=== PATIENT | female | born 1965 | race American Indian/Alaskan Native ===

== ENCOUNTER 2017-05-11 22:48 | Emergency (ER) | payer SELFPAY ==
[2017-05-11 23:43] LABS: Eosinophils % (Auto) 2.9 % (0.0-4.3); Hematocrit 42.1 % (30.3-42.9); Hemoglobin 13.9 gm/dl (10.1-14.3); Mean Corpuscular HGB Conc 33 % (30-34); Mean Corpuscular Hemoglobin 28 pg (28-32); Mean Corpuscular Volume 84 fl (79-97); Platelet Count 258 K/mm3 (140-440); Red Blood Count 5.01 M/mm3 (3.65-5.03); Red Cell Distribution Width 13.3 % (13.2-15.2); White Blood Count 8.1 K/mm3 (4.5-11.0)
[2017-05-11 23:56] LABS: Albumin 4.7 g/dL (3.9-5); Albumin/Globulin Ratio 1.1 %; BUN/Creatinine Ratio 15.88; Bilirubin,Total 0.4 mg/dL (0.1-1.2); Calcium 9.9 mg/dL (8.4-10.2); Chloride 96.3 mmol/L (98-107); Potassium 3.7 mmol/L (3.6-5.0); Total Protein 8.9 g/dL (6.3-8.2)
[2017-05-12 00:49] LABS: Bilirubin,Urine NEG (Negative); Blood,Urine NEG (Negative); Ketones,Urine NEG (Negative); Leukocyte Esterase,Urine SM (Negative); Mucus,Urine FEW /HPF; Nitrite,Urine NEG (Negative); Urobilinogen,Urine < 2.0 mg/dL (<2.0)
[2017-05-12 00:50] LABS: Protein,Urine >500 mg/dL (Negative)
[2017-05-12] MEDS ORDERED: ZOFRAN IV ONE (11:36)
[2017-05-12] MEDS ORDERED: MORPHINE IV ONE (11:36)
[2017-05-12] MEDS ORDERED: NACL 0.9% 1000 ML 1,000 ML IV ONE (11:36)
--- NOTE | 2017-05-12 11:39 | Emergency Department Report ---
ED Abdominal Pain HPI - General Chief Complaint: Abdominal Pain Stated Complaint: BLURRED VISION Time Seen by Provider: 05/12/17 11:27 Source: patient Mode of arrival: Ambulatory Limitations: No Limitations - History of Present Illness Initial Comments: 51-year-old female with complaint of abdominal pain since Monday. She is a history of cholecystectomy approximately 5 years ago. She complains of abdominal pain that is sharp in nature and radiates around to the right side. She's had nausea but no vomiting. No diarrhea. MD Complaint: abdominal pain -: Gradual Radiation: RUQ Migration to: no migration Severity: moderate Severity scale (0 -10): 9 Quality: sharp Consistency: constant Improves With: nothing Worsens With: nothing Associated Symptoms: nausea. denies: vomiting, diarrhea, constipation, dysuria - Related Data Previous Rx's Medication Instructions Recorded Last Taken Type Ondansetron [Zofran TAB] 4 mg PO Q8HR PRN #15 tablet 05/12/17 Unknown Rx oxyCODONE /ACETAMINOPHEN [Percocet 1 tab PO Q6HR PRN #15 tablet 05/12/17 Unknown Rx 5/325] Allergies Allergy/AdvReac Type Severity Reaction Status Date / Time latex Allergy Hives Verified 05/11/17 23:08 Sulfa (Sulfonamide Allergy Swelling Verified 05/11/17 23:08 Antibiotics) ED Review of Systems ROS: Stated complaint: BLURRED VISION Other details as noted in HPI Comment: All other systems reviewed and negative Constitutional: denies: chills, fever Eyes: denies: eye pain, eye discharge, vision change ENT: denies: ear pain, throat pain Respiratory: denies: cough, shortness of breath, wheezing Cardiovascular: denies: chest pain, palpitations Endocrine: no symptoms reported Gastrointestinal: abdominal pain, nausea. denies: vomiting, diarrhea Genitourinary: denies: urgency, dysuria, discharge Musculoskeletal: denies: back pain, joint swelling, arthralgia Skin: denies: rash, lesions Neurological: denies: headache, weakness, paresthesias Psychiatric: denies: anxiety, depression Hematological/Lymphatic: denies: easy bleeding, easy bruising ED Past Medical Hx - Past Medical History Previous Medical History?: Yes Hx Hypertension: Yes Hx Diabetes: Yes Additional medical history: PANCREATITIS - Surgical History Past Surgical History?: Yes Hx Cholecystectomy: Yes Additional Surgical History: BREAST LUMP REMOVALS / HYSTERECTOMY - Social History Smoking Status: Current Every Day Smoker Substance Use Type: None - Medications Home Medications: Home Medications Medication Instructions Recorded Confirmed Last Taken Type Ondansetron [Zofran TAB] 4 mg PO Q8HR PRN #15 tablet 05/12/17 Unknown Rx oxyCODONE /ACETAMINOPHEN [Percocet 1 tab PO Q6HR PRN #15 tablet 05/12/17 Unknown Rx 5/325] ED Physical Exam - General Limitations: No Limitations General appearance: alert, in no apparent distress - Head Head exam: Present: atraumatic, normocephalic - Eye Eye exam: Present: normal appearance - ENT ENT exam: Present: mucous membranes moist - Neck Neck exam: Present: normal inspection - Respiratory Respiratory exam: Present: normal lung sounds bilaterally. Absent: respiratory distress - Cardiovascular Cardiovascular Exam: Present: regular rate, normal rhythm. Absent: systolic murmur, diastolic murmur, rubs, gallop - GI/Abdominal GI/Abdominal exam: Present: soft, tenderness (epigastric), guarding, normal bowel sounds. Absent: rebound - Extremities Exam Extremities exam: Present: normal inspection - Back Exam Back exam: Present: normal inspection - Neurological Exam Neurological exam: Present: alert, oriented X3 - Psychiatric Psychiatric exam: Present: normal affect, normal mood - Skin Skin exam: Present: warm, dry, intact, normal color. Absent: rash ED Course Vital Signs 05/11/17 05/12/17 05/12/17 23:08 06:31 11:30 Temperature 98.2 F Pulse Rate 102 H 85 87 Respiratory 18 14 16 Rate Blood Pressure 162/112 161/117 Blood Pressure 150/114 [Left] O2 Sat by Pulse 98 100 98 Oximetry 05/12/17 05/12/17 05/12/17 11:53 12:23 12:56 Temperature Pulse Rate Respiratory 16 16 16 Rate Blood Pressure Blood Pressure [Left] O2 Sat by Pulse 98 Oximetry ED Medical Decision Making - Lab Data Result diagrams: 05/11/17 23:16 05/11/17 23:16 Laboratory Results - last 24 hr 05/11/17 05/11/17 05/12/17 23:16 23:16 00:27 WBC 8.1 RBC 5.01 Hgb 13.9 Hct 42.1 MCV 84 MCH 28 MCHC 33 RDW 13.3 Plt Count 258 Lymph % (Auto) 39.1 H Warrick % (Auto) 6.8 Eos % (Auto) 2.9 Baso % (Auto) 1.0 Lymph # 3.2 Warrick # 0.6 Eos # 0.2 Baso # 0.1 Seg Neutrophils % 50.2 Seg Neutrophils # 4.1 Sodium 135 L Potassium 3.7 Chloride 96.3 L Carbon Dioxide 20 L Anion Gap 22 BUN 27 H Creatinine 1.7 H Estimated GFR 38 BUN/Creatinine Ratio 15.88 Glucose 139 H Calcium 9.9 Total Bilirubin 0.40 AST 24 ALT 23 Alkaline Phosphatase 132 H Total Protein 8.9 H Albumin 4.7 Albumin/Globulin Ratio 1.1 Lipase 297 H Urine Color Yellow Urine Turbidity Cloudy Urine pH 5.0 Ur Specific [place] 1.022 Urine Protein >500 Urine Glucose (UA) Neg Urine Ketones Neg Urine Blood Neg Urine Nitrite Neg Urine Bilirubin Neg Urine Urobilinogen < 2.0 Ur Leukocyte Esterase Sm Urine WBC (Auto) 28.0 H Urine RBC (Auto) 9.0 U Epithel Cells (Auto) 31.0 H Urine WBC Clumps 2+ Urine Mucus Few Urine Yeast (Budding) 2+ - Medical Decision Making 51-year-old female here with complaint of abdominal pain since Monday. She has not been able to eat anything due to nausea and pain since that time. Denies fevers chills. Labs showed no elevation in WBC however her lipase is slightly elevated at 297. She also has some acute renal insufficiency creatinine 1.7. This is likely due to dehydration. Plan to treat with IV fluids and morphine and Zofran and will reassess. Patient's pain is improved significantly after IV fluids and morphine. She passed a by mouth challenge although she says her pain has returned slightly. We discussed the possibility of admission and the patient would prefer to go home. She understands that she will need to continue clear broth and water for the next several days until her pain resolves. Patient is comfortable with this plan. Portions of this chart were dictated with dictation software. There may be dictation errors contained within this note. Critical care attestation.: If time is entered above; I have spent that time in minutes in the direct care of this critically ill patient, excluding procedure time. ED Disposition Clinical Impression: Pancreatitis, Dehydration Disposition: - TO HOME OR SELFCARE Is pt being admited?: No Condition: Stable Instructions: Abdominal Pain (ED) Prescriptions: Ondansetron [Zofran TAB] 4 mg PO Q8HR PRN #15 tablet PRN Reason: Nausea And Vomiting oxyCODONE /ACETAMINOPHEN [Percocet 5/325] 1 tab PO Q6HR PRN #15 tablet PRN Reason: Pain Referrals: PRIMARY CARE,MD [Primary Care Provider] - 3-5 Days
[2017-05-12 15:37] VITALS: BP 169/94
== END 2017-05-12 15:25 | disposition home or self-care (01) ==
LOC: ED 22:48
DX: K85.90 Acute pancreatitis without necrosis or infection, unspecified (principal); E86.0 Dehydration; I10 Essential (primary) hypertension; E11.9 Type 2 diabetes mellitus without complications; Z87.891 Personal history of nicotine dependence; Z88.2 Allergy status to sulfonamides; Z91.040 Latex allergy status
CPT/HCPCS: 36415; 80053; 81001; 83690; 85025; 96361; 96374; 96375; 99283; J2270; J2405; J7030

== ENCOUNTER 2017-10-12 13:48 | Inpatient (IN) | payer MEDICARE ==
[2017-10-12 15:17] LABS: Basophils % (Auto) 0.2 % (0.0-1.8); Eosinophils % (Auto) 0.7 % (0.0-4.3); Hematocrit 50.7 % (30.3-42.9); Hemoglobin 16.7 gm/dl (10.1-14.3); Mean Corpuscular HGB Conc 33 % (30-34); Mean Corpuscular Hemoglobin 27 pg (28-32); Mean Corpuscular Volume 82 fl (79-97); Red Blood Count 6.16 M/mm3 (3.65-5.03); Red Cell Distribution Width 13.6 % (13.2-15.2); White Blood Count 10.8 K/mm3 (4.5-11.0)
[2017-10-12 15:35] LABS: Platelet Count 277 K/mm3 (140-440)
[2017-10-12 15:37] LABS: Albumin 4.5 g/dL (3.9-5); Albumin/Globulin Ratio 1.5 %; Bilirubin,Total 0.8 mg/dL (0.1-1.2); Calcium 9.7 mg/dL (8.4-10.2); Chloride 97.9 mmol/L (98-107); Potassium 4.6 mmol/L (3.6-5.0); Total Protein 7.6 g/dL (6.3-8.2)
[2017-10-12] MEDS ORDERED: ZOFRAN IV ONE (16:38)
[2017-10-12] MEDS ORDERED: NACL 0.9% 1000 ML 1,000 ML IV ONE (16:38)
[2017-10-12] MEDS ORDERED: SUBLIMAZE IV ONE ×2 (16:38→19:37)
--- NOTE | 2017-10-12 18:27 | Emergency Department Report ---
HPI - General Chief Complaint: Abdominal Pain Time Seen by Provider: 10/12/17 16:34 - HPI HPI: Room 5 The patient is a 52-year-old female presented with a chief complaint of abdominal pain. Patient states the past 3 days she has had pain in the midepigastric region radiating to her back. Patient states the pain feels like previous bouts of pancreatitis. Patient does admit to nausea vomiting and diarrhea. Patient denies any history of fever. Patient denies any other pain outside of her abdominal/back pain. The patient gives her pain a score of 10/10 Location: [See above] Duration: Intermittent 3 days Quality: Similar to pancreatitis Severity: 10/10 Modifying factors: [see above] Context: [see above] Mode of transportation: [not driving] ED Past Medical Hx - Past Medical History Previous Medical History?: Yes Hx Hypertension: Yes Hx Diabetes: Yes Additional medical history: PANCREATITIS - Surgical History Past Surgical History?: Yes Hx Cholecystectomy: Yes Additional Surgical History: BREAST LUMP REMOVALS / HYSTERECTOMY - Family History Family history: no significant - Social History Smoking Status: Current Every Day Smoker (1/3 pack per day) Substance Use Type: Alcohol (occasional) - Medications Home Medications: Home Medications Medication Instructions Recorded Confirmed Last Taken Type AtorvaSTATin [Lipitor] 20 mg PO QHS 10/12/17 10/12/17 10/12/17 History Metoprolol [Lopressor] 100 mg PO BID 10/12/17 10/12/17 10/12/17 History amLODIPine [Norvasc] 10 mg PO DAILY 10/12/17 10/12/17 10/12/17 History glipiZIDE [Glucotrol] 5 mg PO BID 10/12/17 10/12/17 10/12/17 History metFORMIN [Glucophage] 500 mg PO BID 10/12/17 10/12/17 10/12/17 History ED Review of Systems ROS: Stated complaint: ABDOMINAL PAIN Other details as noted in HPI Constitutional: denies: fever Eyes: denies: eye pain ENT: denies: ear pain Cardiovascular: denies: chest pain Gastrointestinal: abdominal pain, nausea, vomiting, diarrhea Genitourinary: denies: dysuria Musculoskeletal: back pain Neurological: denies: headache Physical Exam - Physical Exam Vital Signs: Vital Signs 10/12/17 10/12/17 10/12/17 14:15 15:32 15:46 Temperature 97.9 F Pulse Rate 113 H 98 H Respiratory 18 20 13 Rate Blood Pressure 200/129 Blood Pressure [Left] O2 Sat by Pulse 99 96 Oximetry 10/12/17 1210/12/17 16:00 16:15 16:30 Temperature Pulse Rate 103 H 106 H 103 H Respiratory 21 20 16 Rate Blood Pressure 187/124 187/124 Blood Pressure [Left] O2 Sat by Pulse Oximetry 10/12/17 10/12/17 10/12/17 16:45 17:00 17:13 Temperature Pulse Rate 106 H 105 H 105 H Respiratory 18 20 22 Rate Blood Pressure 200/116 200/116 Blood Pressure 154/116 [Left] O2 Sat by Pulse 97 Oximetry 10/12/17 10/12/17 10/12/17 17:15 17:30 18:05 Temperature Pulse Rate 101 H 102 H 97 H Respiratory 21 18 Rate Blood Pressure 179/111 154/119 154/119 Blood Pressure [Left] O2 Sat by Pulse 94 Oximetry Physical Exam: GENERAL: The patient is well-developed well-nourished female lying on stretcher appearing to be in moderate discomfort. [] HEENT: Normocephalic. Atraumatic. Extraocular motions are intact. NECK: Supple. Trachea midline CHEST/LUNGS: Clear to auscultation. There is no respiratory distress noted. HEART/CARDIOVASCULAR: Regular. There is tachycardia. There is no gallop rub or murmur. ABDOMEN: Abdomen is soft, with tenderness to palpation in the midepigastric region. Patient has normal bowel sounds. There is no abdominal distention. SKIN: There is no rash. There is no edema. There is no diaphoresis. NEURO: The patient is awake, alert, and oriented. The patient is cooperative. The patient has normal speech MUSCULOSKELETAL: There is no evidence of acute injury. ED Course Vital Signs 10/12/17 10/12/17 10/12/17 14:15 15:32 15:46 Temperature 97.9 F Pulse Rate 113 H 98 H Respiratory 18 20 13 Rate Blood Pressure 200/129 Blood Pressure [Left] O2 Sat by Pulse 99 96 Oximetry 10/12/17 10/12/17 10/12/17 16:00 16:15 16:30 Temperature Pulse Rate 103 H 106 H 103 H Respiratory 21 20 16 Rate Blood Pressure 187/124 187/124 Blood Pressure [Left] O2 Sat by Pulse Oximetry 10/12/17 10/12/17 10/12/17 16:45 17:00 17:13 Temperature Pulse Rate 106 H 105 H 105 H Respiratory 18 20 22 Rate Blood Pressure 200/116 200/116 Blood Pressure 154/116 [Left] O2 Sat by Pulse 97 Oximetry 10/12/17 10/12/17 10/12/17 17:15 17:30 18:05 Temperature Pulse Rate 101 H 102 H 97 H Respiratory 21 18 Rate Blood Pressure 179/111 154/119 154/119 Blood Pressure [Left] O2 Sat by Pulse 94 Oximetry ED Medical Decision Making - Lab Data Result diagrams: 10/12/17 14:32 10/12/17 14:32 Laboratory Tests 10/12/17 10/12/17 14:32 14:32 WBC 10.8 RBC 6.16 H Hgb 16.7 H Hct 50.7 H MCV 82 MCH 27 L MCHC 33 RDW 13.6 Plt Count 277 Lymph % (Auto) 37.8 H [place] % (Auto) 6.1 Eos % (Auto) 0.7 Baso % (Auto) 0.2 Lymph # 4.1 [place]aines # 0.7 Eos # 0.1 Baso # 0.0 Seg Neutrophils % 55.2 Seg Neutrophils # 5.9 Sodium 135 L Potassium 4.6 Chloride 97.9 L Carbon Dioxide 12 L Anion Gap 30 BUN 35 H Creatinine 1.3 H Estimated GFR 52 BUN/Creatinine Ratio 27 Glucose 129 H Calcium 9.7 Total Bilirubin 0.80 AST 76 H ALT 54 Alkaline Phosphatase 165 H Total Protein 7.6 Albumin 4.5 Albumin/Globulin Ratio 1.5 Lipase 289 H - EKG Data -: EKG Interpreted by Hi EKG shows normal: sinus rhythm Rate: tachycardia (106 bpm) - EKG Data When compared to previous EKG there are: no significant change Interpretation: unchanged when compared t (10/14/2011) - Differential Diagnosis pancreatitis, peptic ulcer disease Critical care attestation.: If time is entered above; I have spent that time in minutes in the direct care of this critically ill patient, excluding procedure time. ED Disposition Clinical Impression: Acute pancreatitis, Acute abdominal pain, Nausea vomiting and diarrhea Disposition: OP ADMIT IP TO THIS HOSP Is pt being admited?: Yes Does the pt Need Aspirin: No Condition: Fair Instructions: Abdominal Pain (ED) Time of Disposition: 18:28 (hospitalist paged (Dr Burnett))
[2017-10-12 19:13] LABS: Bacteria,Urine 1+ /HPF (Negative); Bilirubin,Urine NEG (Negative); Blood,Urine NEG (Negative); Ketones,Urine NEG (Negative); Leukocyte Esterase,Urine NEG (Negative); Mucus,Urine FEW /HPF; Nitrite,Urine NEG (Negative); Urobilinogen,Urine < 2.0 mg/dL (<2.0)
--- NOTE | 2017-10-12 21:16 | History and Physical Report ---
History of Present Illness Date of examination: 10/12/17 Date of admission: 10/12/17 Chief complaint: Abdominal pain Nausea vomiting and diarrhea History of present illness: Patient is 52-year-old with history of diabetes mellitus type 2, hypertension, hyperlipidemia, alcohol use. She presents with abdominal pain nausea and vomiting diarrhea for 3 days. abdominal pain is 10/10 in the upper abdomen radiating to the back. pain is sharp and is worse after eating. She also complains of nausea vomiting and diarrhea. she vomited 4 times a day. Symptoms getting worse therefore came to ED for further evaluation. Here, labs showed elevated lipase and CT showed acute pancreatitis. She will be admitted for further management. Past History Past Medical History: diabetes, hypertension, hyperlipidemia, other ( pancreatitis) Past Surgical History: cholecystectomy (5yrs ago), hysterectomy, Other Social history: smoking, alcohol abuse, full code Family history: hypertension Medications and Allergies Allergies Allergy/AdvReac Type Severity Reaction Status Date / Time latex Allergy Hives Verified 10/12/17 14:15 Sulfa (Sulfonamide Allergy Swelling Verified 10/12/17 14:15 Antibiotics) Home Medications Medication Instructions Recorded Confirmed Last Taken Type AtorvaSTATin [Lipitor] 20 mg PO QHS 10/12/17 10/12/17 10/12/17 History Metoprolol [Lopressor] 100 mg PO BID 10/12/17 10/12/17 10/12/17 History amLODIPine [Norvasc] 10 mg PO DAILY 10/12/17 10/12/17 10/12/17 History glipiZIDE [Glucotrol] 5 mg PO BID 10/12/17 10/12/17 10/12/17 History metFORMIN [Glucophage] 500 mg PO BID 10/12/17 10/12/17 10/12/17 History Review of Systems All systems: negative (no fever, no headache, no urinary symptoms. All other systems reviewed and are negative) Exam - Physical Exam Narrative exam: GEN APPEARANCE : In acute distress from pain, lying in bed HEENT: Normocephalic, Atraumatic NECK : supple, no JVD LUNGS: clear to auscultation bilaterally, no rales, no wheeze HEART: S1 and S2 regular, no murmurs, rubs or gallop, ABD: Soft, tender epigastric and paraumbilical, no rebound tenderness, no guarding, normal bowel sounds. EXT: No edema, no clubbing, no cyanosis NEURO: Awake,alert, oriented 3, normal speech, moves all ext, Psych:Normal mood - Constitutional Vitals: Temp Pulse Resp BP Pulse Ox 97.9 F 96 H 16 193/100 100 10/12/17 14:15 10/12/17 19:00 10/12/17 19:00 10/12/17 19:00 10/12/17 19:00 Results - Labs CBC & Chem 7: 10/12/17 14:32 10/12/17 21:30 Labs: Abnormal lab results 10/12/17 10/12/17 Range/Units 14:32 14:32 RBC 6.16 H (3.65-5.03) M/mm3 Hgb 16.7 H (10.1-14.3) gm/dl Hct 50.7 H (30.3-42.9) % MCH 27 L (28-32) pg Lymph % (Auto) 37.8 H (13.4-35.0) % Sodium 135 L (137-145) mmol/L Chloride 97.9 L (98-107) mmol/L Carbon Dioxide 12 L (22-30) mmol/L BUN 35 H (7-17) mg/dL Creatinine 1.3 H (0.7-1.2) mg/dL Glucose 129 H (65-100) mg/dL AST 76 H (5-40) units/L Alkaline Phosphatase 165 H (35-129) units/L Lipase 289 H (13-60) units/L Assessment and Plan Acute pancreatitis. This is likely secondary to alcohol use. Patient drinks 1 pint liquor a week. Admit to medical floor. Keep nothing by mouth. Start IV fluids. Check lipid profile. Consult GI physician. Pancreatic and bile duct dilatation on CT Abdomen. GI Physician to evaluate. Diabetes mellitus type 2. Check fingerstick glucose Q6hrs since she is NPO. Glucose 129. Will therefore hold glipizide and Glucophage. May use insulin sliding scale if glucose becomes elevated. Metabolic acidosis. Will give IV fluids, bicarbonate. Check Urine drug screen Nausea,vomiting,diarrhea due to pancreatitis. We will do stool studies to rule out infectious etiology Hyperlipidemia. check lipid profile Hypertensive emergency with initial BP 200/129. The BP is improving. Resume amlodipine and metoprolol from home. Give hydralazine IV when necessary Hyponatremia. Give iv fluids and repeat Transaminitis. Repeat in am Acute kidney injury due to vasomotor nephropathy. Give iv fluids ,repeat in am. DVT prophylaxis with Heparin subcut. Full CODE STATUS
[2017-10-12] MEDS ORDERED: APRESOLINE IV PRN (21:27)
[2017-10-12] MEDS ORDERED: DILAUDID IV ONE (21:46)
--- NOTE | 2017-10-12 22:34 | Cat Scan Report ---
FINAL REPORT PROCEDURE: CT ABDOMEN PELVIS W CON TECHNIQUE: Computerized axial tomography of the abdomen and pelvis was performed after the IV injection of iodinated nonionic contrast. HISTORY: severe abdominal pain COMPARISON: No prior studies are available for comparison. FINDINGS: 2.1 x 2.2 centimeter peripherally enhancing lesion is noted in the left lobe liver. Spleen, and adrenal glands are within normal limits. Bilateral kidneys demonstrate uniform enhancement without hydronephrosis. Aorta is of normal caliber. There is no free fluid or free air. Irregular focal gallbladder wall calcification is noted. Moderate degree pancreatic duct dilatation is identified measuring about 5 millimeters in diameter. Common duct is dilated measuring about 11 millimeters in diameter. There is diffuse mild degree of peripancreatic fat induration without any evidence of focal fluid collection. Small bowel loops are within normal limits. Appendix is normal. Urinary bladder is well distended with normal outlines. IMPRESSION: Diffuse peripancreatic fat induration is consistent with acute cholecystitis. There is evidence of pancreatic and the bile ducts dilatation. Focal wall calcification is noted involving the gallbladder A peripherally enhancing left lobe liver lesion most likely represents a hemangioma. A dynamic post-contrast CT scan is recommended for further evaluation.
[2017-10-12 22:40] LABS: Calcium 9.7 mg/dL (8.4-10.2); Chloride 98.7 mmol/L (98-107); Potassium 4.8 mmol/L (3.6-5.0)
[2017-10-12 22:49] LABS: Magnesium 1.8 mg/dL (1.7-2.3); Phosphorous 4.5 mg/dL (2.5-4.5)
[2017-10-12] MEDS ORDERED: ZOFRAN IV PRN (22:49)
[2017-10-12] MEDS ORDERED: DULCOLAX PR PRN (22:49)
[2017-10-12] MEDS ORDERED: MILK OF MAGNESIA PO PRN (22:49)
[2017-10-12] MEDS ORDERED: TYLENOL PO PRN (22:49)
[2017-10-12] MEDS: LOPRESSOR PO SCH (23:00)
[2017-10-13] MEDS ORDERED: SODIUM BICARBONATE IV ONE ×2 (00:25→01:18)
[2017-10-13] MEDS: NACL 0.9% 1000 ML 1,000 ML IV SCH ×2 (02:00→23:16)
[2017-10-13] MEDS: DILAUDID IV PRN ×4 (06:06→23:03)
[2017-10-13] MEDS: HEPARIN SUB-Q SCH ×3 (06:07→23:02)
[2017-10-13 06:58] LABS: Basophils % (Auto) 0.9 % (0.0-1.8); Eosinophils % (Auto) 1.2 % (0.0-4.3); Hematocrit 42.8 % (30.3-42.9); Hemoglobin 14.2 gm/dl (10.1-14.3); Mean Corpuscular HGB Conc 33 % (30-34); Mean Corpuscular Hemoglobin 28 pg (28-32); Mean Corpuscular Volume 84 fl (79-97); Platelet Count 264 K/mm3 (140-440); Red Blood Count 5.12 M/mm3 (3.65-5.03); Red Cell Distribution Width 13.4 % (13.2-15.2); White Blood Count 9.7 K/mm3 (4.5-11.0)
[2017-10-13 07:20] LABS: Alanine Aminotransferase 35 units/L (7-56); Albumin 3.8 g/dL (3.9-5); Albumin/Globulin Ratio 1.4 %; Alkaline Phosphatase 137 units/L (35-129); BUN/Creatinine Ratio 21; Blood Urea Nitrogen 30 mg/dL (7-17); Calcium 8.3 mg/dL (8.4-10.2); Carbon Dioxide 20 mmol/L (22-30); Chloride 101.3 mmol/L (98-107); Cholesterol 170 mg/dL (50-199); Glucose 158 mg/dL (65-100); HDL Cholesterol 43 mg/dL (40-59); Potassium 3.6 mmol/L (3.6-5.0); Sodium 139 mmol/L (137-145); Total Protein 6.6 g/dL (6.3-8.2); Triglycerides 639 mg/dL (2-149)
[2017-10-13 07:32] LABS: Anion Gap 21 mmol/L; LDL Cholesterol,Direct TNR mg/dL (50-130)
[2017-10-13] MEDS ORDERED: PROTONIX IV SCH (10:00)
[2017-10-13] MEDS: NORVASC PO SCH (10:10)
[2017-10-13] MEDS: LOPRESSOR PO SCH ×2 (10:10→22:57)
[2017-10-13 11:30] LABS: INR 0.96 (0.87-1.13)
--- NOTE | 2017-10-13 11:49 | Gastroenterology Consultation ---
History of Present Illness - Reason for Consult Consult date: 10/13/17 pancreatitis Requesting physician: KRISTAL DAWSON - History of Present Illness Patient is a 52 y/o female with PMH of HTN, pancreatitis, DM, HTN, HLD, and ETOH abuse who presented to ED with c/o epigastric pain x 3 days with associated N/V/D. Pain is constant, radiates across upper abdomen and around to back, and is exacerbated with eating. Lipase was elevated on admission and CT showed acute pancreatitis. This morning pt was resting in bed. No acute distress. Nausea still present but vomiting and diarrhea has now resolved. Admits to drinking on average a pint a week but she states she recently drank more 6 days ago for her brother's birthday. Denies fever, wt loss, jaundice, signs of bleeding, or LGI symptoms. No recent hospitalizations, abx use, travel , or ill contacts. No hx of PUD or liver disease. No hx of IV drug use. Past History Past Medical History: diabetes, hypertension, hyperlipidemia, other ( pancreatitis) Past Surgical History: cholecystectomy (5yrs ago), hysterectomy, Other Social history: smoking, alcohol abuse, full code Family history: hypertension Medications and Allergies Allergies Allergy/AdvReac Type Severity Reaction Status Date / Time latex Allergy Hives Verified 10/12/17 14:15 Sulfa (Sulfonamide Allergy Swelling Verified 10/12/17 14:15 Antibiotics) Home Medications Medication Instructions Recorded Confirmed Last Taken Type AtorvaSTATin [Lipitor] 20 mg PO QHS 10/12/17 10/12/17 10/12/17 History Metoprolol [Lopressor] 100 mg PO BID 10/12/17 10/12/17 10/12/17 History amLODIPine [Norvasc] 10 mg PO DAILY 10/12/17 10/12/17 10/12/17 History glipiZIDE [Glucotrol] 5 mg PO BID 10/12/17 10/12/17 10/12/17 History metFORMIN [Glucophage] 500 mg PO BID 10/12/17 10/12/17 10/12/17 History Active Meds: Active Medications Acetaminophen (Tylenol) 650 mg PO Q4H PRN PRN Reason: Pain MILD(1-3)/Fever >100.5/NINO Amlodipine Besylate (Norvasc) 10 mg PO DAILY [facility] Last Admin: 10/13/17 10:10 Dose: 10 mg Bisacodyl (Dulcolax) 10 mg [place] QDAY PRN PRN Reason: Constipation unrelieved by MOM Heparin Sodium (Porcine) (Heparin) 5,000 unit SUB-Q Q8HR [facility] Last Admin: 10/13/17 06:07 Dose: 5,000 unit Hydralazine HCl (Apresoline) 10 mg IV Q4HR PRN PRN Reason: SBP>170 or DBP>110 Hydromorphone HCl (Dilaudid) 1 mg IV Q4H PRN PRN Reason: Pain , Severe (7-10) Last Admin: 10/13/17 10:22 Dose: 1 mg Sodium Chloride (Nacl 0.9% 1000 Ml) 1,000 mls @ 125 mls/hr IV DIRECT [facility] Last Admin: 10/13/17 02:00 Dose: 125 mls/hr Magnesium Hydroxide (Milk Of Magnesia) 30 ml PO Q4H PRN PRN Reason: Constipation Metoprolol Tartrate (Lopressor) 100 mg PO BID [facility] Last Admin: 10/13/17 10:10 Dose: 100 mg Ondansetron HCl (Zofran) 4 mg IV Q6H PRN PRN Reason: nausea or vomiting Pantoprazole Sodium (Protonix) 40 mg IV QDAY [facility] Review of Systems - Review of Systems All systems: negative Gastrointestinal: abdominal pain, nausea Exam - Constitutional Vital Signs: Temp Pulse Resp BP Pulse Ox 98.0 F 83 18 146/93 88 10/13/17 07:59 10/13/17 07:59 10/13/17 07:59 10/13/17 10:10 10/13/17 07:59 General appearance: no acute distress, well-nourished - EENT Eyes: PERRL, EOM intact ENT: hearing intact - Respiratory Respiratory: bilateral: CTA - Cardiovascular Rhythm: regular Heart Sounds: Present: S1 & S2 Extremities: No edema - Gastrointestinal General gastrointestinal: Present: soft, tender (across upper abdomen (RUQ, epigastric, LUQ)), non-distended, normal bowel sounds - Integumentary Integumentary: Present: warm, dry - Neurologic Neurological: alert and oriented x3 - Labs CBC & Chem 7: 10/13/17 06:07 10/13/17 06:07 Lab Results: Laboratory Results - last 24 hr 10/12/17 10/12/17 10/12/17 14:32 14:32 18:55 WBC 10.8 RBC 6.16 H Hgb 16.7 H Hct 50.7 H MCV 82 MCH 27 L MCHC 33 RDW 13.6 Plt Count 277 Lymph % (Auto) 37.8 H [place] % (Auto) 6.1 Eos % (Auto) 0.7 Baso % (Auto) 0.2 Lymph # 4.1 [place] # 0.7 Eos # 0.1 Baso # 0.0 Seg Neutrophils % 55.2 Seg Neutrophils # 5.9 PT INR Sodium 135 L Potassium 4.6 Chloride 97.9 L Carbon Dioxide 12 L Anion Gap 30 BUN 35 H Creatinine 1.3 H Estimated GFR 52 BUN/Creatinine Ratio 27 Glucose 129 H POC Glucose Hemoglobin A1c Calcium 9.7 Phosphorus Magnesium Total Bilirubin 0.80 AST 76 H ALT 54 Alkaline Phosphatase 165 H Total Protein 7.6 Albumin 4.5 Albumin/Globulin Ratio 1.5 Triglycerides Cholesterol LDL Cholesterol Direct HDL Cholesterol Cholesterol/HDL Ratio Lipase 289 H Urine Color Yellow Urine Turbidity Clear Urine pH 5.0 Ur Specific [place] 1.021 Urine Protein 100 mg/dl Urine Glucose (UA) Neg Urine Ketones Neg Urine Blood Neg Urine Nitrite Neg Urine Bilirubin Neg Urine Urobilinogen < 2.0 Ur Leukocyte Esterase Neg Urine WBC (Auto) 2.0 Urine RBC (Auto) 2.0 U Epithel Cells (Auto) 2.0 Urine Bacteria (Auto) 1+ Hyaline Casts 1 Urine Mucus Few 10/12/17 10/12/17 10/13/17 21:30 21:30 06:07 WBC 9.7 RBC 5.12 H Hgb 14.2 Hct 42.8 D MCV 84 MCH 28 MCHC 33 RDW 13.4 Plt Count 264 Lymph % (Auto) 30.6 [place] % (Auto) 9.1 H Eos % (Auto) 1.2 Baso % (Auto) 0.9 Lymph # 3.0 [place] # 0.9 H Eos # 0.1 Baso # 0.1 Seg Neutrophils % 58.2 Seg Neutrophils # 5.7 PT INR Sodium 138 Potassium 4.8 Chloride 98.7 Carbon Dioxide 7 L* Anion Gap 37 BUN 37 H Creatinine 1.5 H Estimated GFR 44 BUN/Creatinine Ratio 25 Glucose 132 H POC Glucose Hemoglobin A1c Calcium 9.7 Phosphorus 4.50 Magnesium 1.80 Total Bilirubin AST ALT Alkaline Phosphatase Total Protein Albumin Albumin/Globulin Ratio Triglycerides Cholesterol LDL Cholesterol Direct HDL Cholesterol Cholesterol/HDL Ratio Lipase Urine Color Urine Turbidity Urine pH Ur Specific [place] Urine Protein Urine Glucose (UA) Urine Ketones Urine Blood Urine Nitrite Urine Bilirubin Urine Urobilinogen Ur Leukocyte Esterase Urine WBC (Auto) Urine RBC (Auto) U Epithel Cells (Auto) Urine Bacteria (Auto) Hyaline Casts Urine Mucus 10/13/17 10/13/17 10/13/17 06:07 06:07 06:33 WBC RBC Hgb Hct MCV MCH MCHC RDW Plt Count Lymph % (Auto) [place] % (Auto) Eos % (Auto) Baso % (Auto) Lymph # [place] # Eos # Baso # Seg Neutrophils % Seg Neutrophils # PT INR Sodium 139 Potassium 3.6 D Chloride 101.3 Carbon Dioxide 20 L D Anion Gap 21 BUN 30 H Creatinine 1.4 H Estimated GFR 47 BUN/Creatinine Ratio 21 Glucose 158 H POC Glucose 168 H Hemoglobin A1c 6.1 H Calcium 8.3 L Phosphorus Magnesium Total Bilirubin 0.80 AST 37 ALT 35 Alkaline Phosphatase 137 H Total Protein 6.6 Albumin 3.8 L Albumin/Globulin Ratio 1.4 Triglycerides 639 H Cholesterol 170 LDL Cholesterol Direct TNR HDL Cholesterol 43 Cholesterol/HDL Ratio 3.95 Lipase Urine Color Urine Turbidity Urine pH Ur Specific [place] Urine Protein Urine Glucose (UA) Urine Ketones Urine Blood Urine Nitrite Urine Bilirubin Urine Urobilinogen Ur Leukocyte Esterase Urine WBC (Auto) Urine RBC (Auto) U Epithel Cells (Auto) Urine Bacteria (Auto) Hyaline Casts Urine Mucus 10/13/17 10/13/17 10:38 11:03 WBC RBC Hgb Hct MCV MCH MCHC RDW Plt Count Lymph % (Auto) [place] % (Auto) Eos % (Auto) Baso % (Auto) Lymph # [place] # Eos # Baso # Seg Neutrophils % Seg Neutrophils # PT 13.3 INR 0.96 Sodium Potassium Chloride Carbon Dioxide Anion Gap BUN Creatinine Estimated GFR BUN/Creatinine Ratio Glucose POC Glucose 143 H Hemoglobin A1c Calcium Phosphorus Magnesium Total Bilirubin AST ALT Alkaline Phosphatase Total Protein Albumin Albumin/Globulin Ratio Triglycerides Cholesterol LDL Cholesterol Direct HDL Cholesterol Cholesterol/HDL Ratio Lipase Urine Color Urine Turbidity Urine pH Ur Specific [place] Urine Protein Urine Glucose (UA) Urine Ketones Urine Blood Urine Nitrite Urine Bilirubin Urine Urobilinogen Ur Leukocyte Esterase Urine WBC (Auto) Urine RBC (Auto) U Epithel Cells (Auto) Urine Bacteria (Auto) Hyaline Casts Urine Mucus Assessment and Plan 1.pancreatitis -WBC-WNL -afebrile -AST 37-trended down from 76 -ALT-WNL -alk phos 137-trending down -lipase 289 -triglycerides 639 -stool studies pending- diarrhea now resolved -abd CT showed acute pancreatitis with evidence of pancreatic and bile duct dilatation -etiology most likely 2/2 ETOH abuse, however triglycerides are elevated and CT with evidence of duct dilatation -will order MRCP and start on fenofibrate -alcohol cessation discussed with pt -Keep NPO -continue supportive care with IVF, pain management, and f/u labs -further recommendations to follow
--- NOTE | 2017-10-13 13:21 | Event Note ---
Date: 10/13/17 Surgery consult to see the patient for possible cholecystitis. Per the patient' s history she is status post cholecystectomy. This was confirmed with the patient. I reviewed the CT scan abdomen and pelvis imaging personally. The patient does have evidence of pancreatitis, there are clips in the gallbladder fossa. There is a dilated common bile duct. I discussed this with Dr. Spence. He will cancel the surgical consult.
--- NOTE | 2017-10-13 13:56 | Progress Note ---
Assessment and Plan Assessment and plan: Acute pancreatitis Likely due to alcohol, patient is counseled about cessation of alcohol - Patient is nothing by mouth, on IV fluids, pain control - We'll resume clear liquid diet once pain is getting better ADDISON - Continue fluids Metabolic acidosis - Patient is on bicarbonate Hypertensive urgency - Resume home medications and when necessary hydralazine Hyperlipidemia - Continue medications DVT prophylaxis - On heparin Disposition Continue in patient care History Interval history: Patient was seen and evaluated this morning, she still have abdominal pain but getting better. An episode of nausea and vomiting this morning. Hospitalist Physical - Physical exam Narrative exam: Not in cardiopulmonary distress. The patient is obese. Vital signs as documented. Head exam is unremarkable. No scleral icterus . Neck is without jugular venous distension, thyromegaly, or carotid bruits. Lungs are clear to auscultation. Cardiac exam reveals regular rate and Rhythm. First and second heart sounds normal. No murmurs, rubs or gallops. Abdominal exam reveals normal bowel sounds, no masses, no organomegaly and no aortic enlargement. Extremities mild epigastric tenderness. OUTSIDE RIGGER: Alert and oriented 3. No focal weakness. - Constitutional Vitals: Temp Pulse Resp BP Pulse Ox 98.0 F 83 18 146/93 88 10/13/17 07:59 10/13/17 07:59 10/13/17 07:59 10/13/17 10:10 10/13/17 07:59 Results - Labs CBC & Chem 7: 10/13/17 06:07 10/13/17 06:07 Labs: Laboratory Last Values WBC 9.7 K/mm3 (4.5-11.0) 10/13/17 06:07 RBC 5.12 M/mm3 (3.65-5.03) H 10/13/17 06:07 Hgb 14.2 gm/dl (10.1-14.3) 10/13/17 06:07 Hct 42.8 % (30.3-42.9) D 10/13/17 06:07 MCV 84 fl (79-97) 10/13/17 06:07 MCH 28 pg (28-32) 10/13/17 06:07 MCHC 33 % (30-34) 10/13/17 06:07 RDW 13.4 % (13.2-15.2) 10/13/17 06:07 Plt Count 264 K/mm3 (140-440) 10/13/17 06:07 Lymph % (Auto) 30.6 % (13.4-35.0) 10/13/17 06:07 [place] % (Auto) 9.1 % (0.0-7.3) H 10/13/17 06:07 Eos % (Auto) 1.2 % (0.0-4.3) 10/13/17 06:07 Baso % (Auto) 0.9 % (0.0-1.8) 10/13/17 06:07 Lymph # 3.0 K/mm3 (1.2-5.4) 10/13/17 06:07 [place] # 0.9 K/mm3 (0.0-0.8) H 10/13/17 06:07 Eos # 0.1 K/mm3 (0.0-0.4) 10/13/17 06:07 Baso # 0.1 K/mm3 (0.0-0.1) 10/13/17 06:07 Seg Neutrophils % 58.2 % (40.0-70.0) 10/13/17 06:07 Seg Neutrophils # 5.7 K/mm3 (1.8-7.7) 10/13/17 06:07 PT 13.3 Sec. (12.2-14.9) 10/13/17 10:38 INR 0.96 (0.87-1.13) 10/13/17 10:38 Sodium 139 mmol/L (137-145) 10/13/17 06:07 Potassium 3.6 mmol/L (3.6-5.0) D 10/13/17 06:07 Chloride 101.3 mmol/L (98-107) 10/13/17 06:07 Carbon Dioxide 20 mmol/L (22-30) L D 10/13/17 06:07 Anion Gap 21 mmol/L 10/13/17 06:07 BUN 30 mg/dL (7-17) H 10/13/17 06:07 Creatinine 1.4 mg/dL (0.7-1.2) H 10/13/17 06:07 Estimated GFR 47 ml/min 10/13/17 06:07 BUN/Creatinine Ratio 21 % 10/13/17 06:07 Glucose 158 mg/dL (65-100) H 10/13/17 06:07 POC Glucose 143 (70-105) H 10/13/17 11:03 Hemoglobin A1c 6.1 % (4-6) H 10/13/17 06:07 Calcium 8.3 mg/dL (8.4-10.2) L 10/13/17 06:07 Phosphorus 4.50 mg/dL (2.5-4.5) 10/12/17 21:30 Magnesium 1.80 mg/dL (1.7-2.3) 10/12/17 21:30 Total Bilirubin 0.80 mg/dL (0.1-1.2) 10/13/17 06:07 AST 37 units/L (5-40) 10/13/17 06:07 ALT 35 units/L (7-56) 10/13/17 06:07 Alkaline Phosphatase 137 units/L (35-129) H 10/13/17 06:07 Total Protein 6.6 g/dL (6.3-8.2) 10/13/17 06:07 Albumin 3.8 g/dL (3.9-5) L 10/13/17 06:07 Albumin/Globulin Ratio 1.4 % 10/13/17 06:07 Triglycerides 639 mg/dL (2-149) H 10/13/17 06:07 Cholesterol 170 mg/dL (50-199) 10/13/17 06:07 LDL Cholesterol Direct TNR 10/13/17 06:07 HDL Cholesterol 43 mg/dL (40-59) 10/13/17 06:07 Cholesterol/HDL Ratio 3.95 % 10/13/17 06:07 Lipase 714 units/L (13-60) H 10/13/17 10:38 Urine Color Yellow (Yellow) 10/12/17 18:55 Urine Turbidity Clear (Clear) 10/12/17 18:55 Urine pH 5.0 (5.0-7.0) 10/12/17 18:55 Ur Specific [place] 1.021 (1.003-1.030) 10/12/17 18:55 Urine Protein 100 mg/dl mg/dL (Negative) 10/12/17 18:55 Urine Glucose (UA) Neg mg/dL (Negative) 10/12/17 18:55 Urine Ketones Neg mg/dL (Negative) 10/12/17 18:55 Urine Blood Neg (Negative) 10/12/17 18:55 Urine Nitrite Neg (Negative) 10/12/17 18:55 Urine Bilirubin Neg (Negative) 10/12/17 18:55 Urine Urobilinogen < 2.0 mg/dL (<2.0) 12 18:55 Ur Leukocyte Esterase Neg (Negative) 10/12/17 18:55 Urine WBC (Auto) 2.0 /HPF (0.0-6.0) 10/12/17 18:55 Urine RBC (Auto) 2.0 /HPF (0.0-6.0) 10/12/17 18:55 U Epithel Cells (Auto) 2.0 /HPF (0-13.0) 10/12/17 18:55 Urine Bacteria (Auto) 1+ /HPF (Negative) 10/12/17 18:55 Hyaline Casts 1 /LPF 10/12/17 18:55 Urine Mucus Few /HPF 10/12/17 18:55
[2017-10-14] MEDS: HEPARIN SUB-Q SCH (05:46)
[2017-10-14] MEDS: DILAUDID IV PRN (05:46)
[2017-10-14 05:50] LABS: Basophils % (Auto) 0.8 % (0.0-1.8); Eosinophils % (Auto) 1.9 % (0.0-4.3); Mean Corpuscular HGB Conc 34 % (30-34); Mean Corpuscular Hemoglobin 28 pg (28-32); Mean Corpuscular Volume 84 fl (79-97); Platelet Count 179 K/mm3 (140-440); Red Blood Count 4.26 M/mm3 (3.65-5.03); Red Cell Distribution Width 13.4 % (13.2-15.2); White Blood Count 8.3 K/mm3 (4.5-11.0)
[2017-10-14 06:02] LABS: Hematocrit 38.9 % (30.3-42.9)
[2017-10-14 06:14] LABS: Alanine Aminotransferase 29 units/L (7-56); Albumin 3.4 g/dL (3.9-5); Albumin/Globulin Ratio 1.3 %; Alkaline Phosphatase 138 units/L (35-129); Anion Gap 17 mmol/L; BUN/Creatinine Ratio 15; Blood Urea Nitrogen 15 mg/dL (7-17); Calcium 7.9 mg/dL (8.4-10.2); Carbon Dioxide 20 mmol/L (22-30); Chloride 106.4 mmol/L (98-107); Glucose 123 mg/dL (65-100); Lipase 228 units/L (13-60); Potassium 3.7 mmol/L (3.6-5.0); Sodium 140 mmol/L (137-145)
--- NOTE | 2017-10-14 07:48 | Progress Note ---
Assessment and Plan Assessment and plan: Acute pancreatitis Likely due to alcohol, patient is counseled about cessation of alcohol - Patient is nothing by mouth, on IV fluids, pain control - Patient tolerated liquid diet, advance as tolerated ADDISON, likely due to vasomotor nephropathy - Resolved Metabolic acidosis - Patient is on bicarbonate - Resolved Hypertensive urgency - Resume home medications and when necessary hydralazine Hyperlipidemia - Continue medications DVT prophylaxis - On heparin Disposition Continue in patient care History Interval history: Patient was seen and evaluated this morning, she still have abdominal pain but getting better. An episode of nausea and vomiting this morning. Hospitalist Physical - Physical exam Narrative exam: Not in cardiopulmonary distress. The patient is obese. Vital signs as documented. Head exam is unremarkable. No scleral icterus . Neck is without jugular venous distension, thyromegaly, or carotid bruits. Lungs are clear to auscultation. Cardiac exam reveals regular rate and Rhythm. First and second heart sounds normal. No murmurs, rubs or gallops. Abdominal exam reveals normal bowel sounds, no masses, no organomegaly and no aortic enlargement. Extremities mild epigastric tenderness. 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 No focal weakness. - Constitutional Vitals: Temp Pulse Resp BP Pulse Ox 99.2 F 84 20 134/83 93 10/13/17 21:55 10/13/17 22:57 10/14/17 05:46 10/13/17 22:57 10/13/17 21:55 Results - Labs CBC & Chem 7: 10/14/17 05:31 10/14/17 05:31 Labs: Laboratory Last Values WBC 8.3 K/mm3 (4.5-11.0) 10/14/17 05:31 RBC 4.26 M/mm3 (3.65-5.03) 10/14/17 05:31 Hgb 12.0 gm/dl (10.1-14.3) 10/14/17 05:31 Hct 38.9 % (30.3-42.9) 10/14/17 05:31 MCV 84 fl (79-97) 10/14/17 05:31 MCH 28 pg (28-32) 10/14/17 05:31 MCHC 34 % (30-34) 10/14/17 05:31 RDW 13.4 % (13.2-15.2) 10/14/17 05:31 Plt Count 179 K/mm3 (140-440) 10/14/17 05:31 Lymph % (Auto) 46.1 % (13.4-35.0) H 10/14/17 05:31 [place] % (Auto) 6.8 % (0.0-7.3) 10/14/17 05:31 Eos % (Auto) 1.9 % (0.0-4.3) 10/14/17 05:31 Baso % (Auto) 0.8 % (0.0-1.8) 10/14/17 05:31 Lymph # 3.8 K/mm3 (1.2-5.4) 10/14/17 05:31 [place] # 0.6 K/mm3 (0.0-0.8) 10/14/17 05:31 Eos # 0.2 K/mm3 (0.0-0.4) 10/14/17 05:31 Baso # 0.1 K/mm3 (0.0-0.1) 10/14/17 05:31 Seg Neutrophils % 44.4 % (40.0-70.0) 10/14/17 05:31 Seg Neutrophils # 3.7 K/mm3 (1.8-7.7) 10/14/17 05:31 PT 13.3 Sec. (12.2-14.9) 10/13/17 10:38 INR 0.96 (0.87-1.13) 10/13/17 10:38 Sodium 140 mmol/L (137-145) 10/14/17 05:31 Potassium 3.7 mmol/L (3.6-5.0) 10/14/17 05:31 Chloride 106.4 mmol/L (98-107) 10/14/17 05:31 Carbon Dioxide 20 mmol/L (22-30) L 10/14/17 05:31 Anion Gap 17 mmol/L 10/14/17 05:31 BUN 15 mg/dL (7-17) 10/14/17 05:31 Creatinine 1.0 mg/dL (0.7-1.2) 10/14/17 05:31 Estimated GFR > 60 ml/min 10/14/17 05:31 BUN/Creatinine Ratio 15 % 10/14/17 05:31 Glucose 123 mg/dL (65-100) H 10/14/17 05:31 POC Glucose 123 (70-105) H 10/14/17 06:27 Hemoglobin A1c 6.1 % (4-6) H 10/13/17 06:07 Calcium 7.9 mg/dL (8.4-10.2) L 10/14/17 05:31 Phosphorus 4.50 mg/dL (2.5-4.5) 10/12/17 21:30 Magnesium 1.80 mg/dL (1.7-2.3) 10/12/17 21:30 Total Bilirubin 0.50 mg/dL (0.1-1.2) 10/14/17 05:31 AST 32 units/L (5-40) 10/14/17 05:31 ALT 29 units/L (7-56) 10/14/17 05:31 Alkaline Phosphatase 138 units/L (35-129) H 10/14/17 05:31 C-Reactive Protein 9.40 mg/dL (0.00-1.30) H 10/14/17 05:31 Total Protein 6.0 g/dL (6.3-8.2) L 10/14/17 05:31 Albumin 3.4 g/dL (3.9-5) L 10/14/17 05:31 Albumin/Globulin Ratio 1.3 % 10/14/17 05:31 Triglycerides 639 mg/dL (2-149) H 10/13/17 06:07 Cholesterol 170 mg/dL (50-199) 10/13/17 06:07 LDL Cholesterol Direct TNR 10/13/17 06:07 HDL Cholesterol 43 mg/dL (40-59) 10/13/17 06:07 Cholesterol/HDL Ratio 3.95 % 10/13/17 06:07 Lipase 228 units/L (13-60) H 10/14/17 05:31 Urine Color Yellow (Yellow) 10/12/17 18:55 Urine Turbidity Clear (Clear) 10/12/17 18:55 Urine pH 5.0 (5.0-7.0) 10/12/17 18:55 Ur Specific [place] 1.021 (1.003-1.030) 10/12/17 18:55 Urine Protein 100 mg/dl mg/dL (Negative) 10/12/17 18:55 Urine Glucose (UA) Neg mg/dL (Negative) 10/12/17 18:55 Urine Ketones Neg mg/dL (Negative) 10/12/17 18:55 Urine Blood Neg (Negative) 10/12/17 18:55 Urine Nitrite Neg (Negative) 10/12/17 18:55 Urine Bilirubin Neg (Negative) 10/12/17 18:55 Urine Urobilinogen < 2.0 mg/dL (<2.0) 10/12/17 18:55 Ur Leukocyte Esterase Neg (Negative) 10/12/17 18:55 Urine WBC (Auto) 2.0 /HPF (0.0-6.0) 10/12/17 18:55 Urine RBC (Auto) 2.0 /HPF (0.0-6.0) 10/12/17 18:55 U Epithel Cells (Auto) 2.0 /HPF (0-13.0) 10/12/17 18:55 Urine Bacteria (Auto) 1+ /HPF (Negative) 10/12/17 18:55 Hyaline Casts 1 /LPF 10/12/17 18:55 Urine Mucus Few /HPF 10/12/17 18:55
[2017-10-14 09:12] VITALS: BP 115/77
[2017-10-14] MEDS ORDERED: TRICOR PO SCH (10:00)
[2017-10-14] MEDS ORDERED: PROTONIX PO SCH (10:00)
--- NOTE | 2017-10-14 11:08 | Discharge Summary ---
Providers - Providers Date of Admission: 10/12/17 22:49 Date of discharge: 10/14/17 Attending physician: RAFAEL GELLER MD 10/12/17 22:49 Consult to Physician [CONS] Routine Consulting Provider: ANETTE THOMAS Reason For Exam: acute pancreatitis Place consult to:: dr. thomas Notified:: overhead page Was contact made?: Yes If yes, spoke with:: travis Time called:: 10:24 10/13/17 08:17 Consult to Physician [CONS] Routine Consulting Provider: BOB TANNER Reason For Exam: acute checystitis per CT report Place consult to:: General surgery Notified:: office Phone number called:: Primary care physician: [employer] Hospitalization Reason for admission: Acute pancreatitis Condition: Stable Pertinent studies: CT abdomen and pelvis Diffuse peripancreatic fat induration is consistent with acute pancreatitis. There is evidence of pancreatic and bile ducts dilation. MRCP Acute pancreatitis involving the body and tail. No pancreatic pseudocyst or hemorrhage. Biliary dilation but no evidence of choledocholithiasis. Gallbladder wall calcification but no cholelithiasis. No evidence of acute cholecystitis. Hepatic steatosis and mild hepatomegaly. Hospital course: Patient is 52-year-old with history of diabetes mellitus type 2, hypertension, hyperlipidemia, alcohol use. She presents with abdominal pain nausea and vomiting diarrhea for 3 days. abdominal pain is 10/10 in the upper abdomen radiating to the back. pain is sharp and is worse after eating. She also complains of nausea vomiting and diarrhea. she vomited 4 times a day. Symptoms getting worse therefore came to ED for further evaluation. Here, labs showed elevated lipase and CT showed acute pancreatitis. She will be admitted for further management. Patient was admitted to the floor for the management of alcoholic pancreatitis. Patient was put nothing by mouth, IV fluids, pain control. Once the pain was better she was started with clear liquids and titrated up to regular diet which she tolerated this morning. Patient's triglyceride was high and she was started with fenofibrate and also given a prescription. Patient's abdominal pain subsided and doing well. GI was consulted and input appreciated. Patient discharged home in a stable condition. Patient's questions and concerns were addressed at the bedside. Disposition: - TO HOME OR SELFCARE Time spent for discharge: 31 minutes - Discharge Diagnoses (1) Acute abdominal pain Status: Acute (2) Acute pancreatitis Status: Acute (3) Nausea vomiting and diarrhea Status: Acute Core Measure Documentation - Palliative Care Palliative Care/ Comfort Measures: Not Applicable - Core Measures Any of the following diagnoses?: none Exam - Physical Exam Narrative exam: Not in cardiopulmonary distress. The patient is obese. Vital signs as documented. Head exam is unremarkable. No scleral icterus . Neck is without jugular venous distension, thyromegaly, or carotid bruits. Lungs are clear to auscultation. Cardiac exam reveals regular rate and Rhythm. First and second heart sounds normal. No murmurs, rubs or gallops. Abdominal exam reveals soft, nontender, normoactive bowel sounds. Extremities are nonedematous and both femoral and pedal pulses are normal. 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 No focal weakness. - Constitutional Vitals: Temp Pulse Resp BP Pulse Ox 98.0 F 77 18 115/77 92 10/14/17 07:53 10/14/17 07:53 10/14/17 07:53 10/14/17 07:53 10/14/17 07:53 Plan Activity: no restrictions Diet: low fat, low cholesterol, low salt Additional Instructions: Please follow at [facility] in 2 weeks Follow up with: PRIMARY CARE, [Primary Care Provider] - 3-5 Days Prescriptions: Fenofibrate [Tricor] 145 mg PO QDAY #30 tablet Oxycodone HCl [oxyCODONE TAB] 10 mg PO Q6H PRN #12 tablet PRN Reason: Pain
[2017-10-14] MEDS: NORVASC PO SCH (11:13)
[2017-10-14] MEDS: LOPRESSOR PO SCH (11:13)
--- NOTE | 2017-10-14 11:15 | Magnetic Resonance Report ---
MRI ABDOMEN WITH MRCP: 10/13/17 12:04:00 CLINICAL: Pancreatitis and dilated CBD. COMPARISON:10/12/17 CT abdomen and pelvis with contrast TECHNIQUE: Axial T1 in phase and opposed phase, coronal and axial T2 and axial T2 fat sat sequences plus thin and thick slab MRCP sequences on a 1.5 [place] magnet. FINDINGS: The liver is large with the right lobe measuring 19.5 cm in length. Diffuse homogeneous signal dropout on opposed phase imaging of the liver. A 2.4 cm T2 hyperintense lesion in the lateral segment of the left lobe of the liver and a 9 mm T2 hyperintense lesion in the medial segment of the left lobe of the liver. The gall bladder is small and measures 3.5 cm in craniocaudal dimension. A focal hyperintense signal in the lateral wall of the gallbladder is consistent with calcification identified on CT. No evidence of cholelithiasis. The intrahepatic bile ducts are moderately dilated. The CBD is dilated and the suprapancreatic portion of the CBD measures 14 mm. The intrapancreatic portion of the CBD is small and there is no evidence of choledocholithiasis. The pancreatic duct is dilated throughout the gland. Mild enlargement of the pancreatic body and tail with an irregular margin and mild peripancreatic edema. No pancreatic pseudocyst. The stomach and spleen are normal. Duodenal wall thickening consistent with duodenitis in the third portion of the duodenum. The adrenal glands and kidneys are normal. Aorta and inferior vena cava are normal. Imaged portions of small bowel and colon are normal. No ascites. IMPRESSION: 1. Acute pancreatitis involving the body and tail. No pancreatic pseudocyst or hemorrhage. 2. Biliary dilatation but no evidence of choledocholithiasis. 3. Gallbladder wall calcification but no cholelithiasis. No evidence of acute cholecystitis. 4. Hepatic steatosis and mild hepatomegaly.
== END 2017-10-14 13:24 | disposition home or self-care (01) | DRG 438 ==
LOC: ED 13:48 → 3A 22:49
PROVIDERS: ADMIT Internal Medicine; ATTEND Internal Medicine
DX: K85.20 Alcohol induced acute pancreatitis without necrosis or infection (principal); N17.0 Acute kidney failure with tubular necrosis; E87.2 Acidosis; E87.1 Hypo-osmolality and hyponatremia; I16.1 Hypertensive emergency; E11.8 Type 2 diabetes mellitus with unspecified complications; E78.5 Hyperlipidemia, unspecified; F17.200 Nicotine dependence, unspecified, uncomplicated; R74.0 Nonspecific elevation of levels of transaminase and lactic acid dehydrogenase [LDH]; I10 Essential (primary) hypertension; Z72.89 Other problems related to lifestyle; Z90.49 Acquired absence of other specified parts of digestive tract; Z90.710 Acquired absence of both cervix and uterus; Z79.899 Other long term (current) drug therapy; Z82.49 Family history of ischemic heart disease and other diseases of the circulatory system; Z88.2 Allergy status to sulfonamides; Z91.040 Latex allergy status; Z71.41 Alcohol abuse counseling and surveillance of alcoholic
CPT/HCPCS: 36415; 74177; 74181; 80048; 80053; 80061; 81001; 82962; 83036; 83690; 83735; 84100; 85025; 85610; 86140; 93005; 93010; 96361; 96374; 96375; 96376; 99406; C9113; J1170; J1644; J2405; J3010; J7030; Q9967

== ENCOUNTER 2019-08-07 23:37 | Inpatient (IN) | payer MEDICARE ==
[2019-08-07] MEDS ORDERED: SODIUM CHLORIDE 0.9% 1000 ML 1,000 ML IV ONE (23:43)
[2019-08-07] MEDS ORDERED: MORPHINE 4 MG/1 ML INJ IV ONE ×2 (23:43→23:44)
[2019-08-07] MEDS ORDERED: ONDANSETRON 4 MG/2 ML INJ IV ONE (23:43)
--- NOTE | 2019-08-07 23:50 | Emergency Department Report ---
ED Abdominal Pain HPI - General Stated Complaint: NAUSEA/DIARRHEA Time Seen by Provider: 08/07/19 23:43 Source: patient, EMS, neuro ophthalmologist, RN notes reviewed, old records reviewed Mode of arrival: Stretcher Limitations: No Limitations - History of Present Illness Initial Comments: Mrs. Ng is a 54-year-old female with history of hypertension, diabetes mellitus, asthma, pancreatitis, alcohol use who presents to the emergency department with abdominal pain, vomiting and diarrhea. She drinks alcohol "a lot". Severe central abdominal pain. Sharp achy in nature. 10 out of 10 in severity. No hematemesis. No bloody stools. PCP Dr. Reddy According to previous discharge summary 2018, she was admitted for treatment of infectious colitis. In 2017 admitted for acute pancreatitis MD Complaint: abdominal pain -: Gradual, days(s) (1) Location: epigastric Severity: severe Severity scale (0 -10): 10 Quality: cramping, stabbing, aching Consistency: constant Improves With: nothing Worsens With: nothing Context: other (binge drinking alcohol yesterday at [employer] restaurant "I drank a lot. I drank everything.") Associated Symptoms: nausea, vomiting, diarrhea - Related Data Home Medications Medication Instructions Recorded Confirmed Last Taken AtorvaSTATin [Lipitor] 20 mg PO QHS 10/12/17 12/16/17 10/12/17 Metoprolol [Lopressor TAB] 100 mg PO BID 10/12/17 12/16/17 12/15/17 amLODIPine [Norvasc] 10 mg PO DAILY 10/12/17 12/16/17 12/15/17 glipiZIDE [Glucotrol] 5 mg PO BID 10/12/17 12/16/17 12/15/17 metFORMIN [Glucophage] 500 mg PO BID 10/12/17 12/16/17 12/15/17 Previous Rx's Medication Instructions Recorded Last Taken Type Fenofibrate [Tricor] 145 mg PO QDAY #30 tablet 10/14/17 12/15/17 Rx Ciprofloxacin HCl [Cipro] 500 mg PO BID #10 tablet 12/18/17 Unknown Rx Ferrous Sulfate, Dried [Slow 160 mg PO DAILY #10 tablet.er 12/18/17 Unknown Rx Release Iron 160 Mg tab] Oxycodone HCl [oxyCODONE] 10 mg PO Q6H PRN #12 tablet 12/18/17 Unknown Rx metroNIDAZOLE [Flagyl] 500 mg PO Q8HR #15 tablet 12/18/17 Unknown Rx Allergies Allergy/AdvReac Type Severity Reaction Status Date / Time latex Allergy Hives Verified 10/12/17 14:15 Sulfa (Sulfonamide Allergy Swelling Verified 10/12/17 14:15 Antibiotics) ED Review of Systems ROS: Stated complaint: NAUSEA/DIARRHEA Other details as noted in HPI Comment: All other systems reviewed and negative Constitutional: malaise. denies: fever Respiratory: denies: shortness of breath Cardiovascular: denies: chest pain Gastrointestinal: abdominal pain, nausea, vomiting, diarrhea ED Past Medical Hx - Past Medical History Previous Medical History?: Yes Hx Hypertension: Yes Hx Diabetes: Yes Hx Asthma: Yes Additional medical history: PANCREATITIS - Surgical History Hx Cholecystectomy: Yes Additional Surgical History: BREAST LUMP REMOVALS / HYSTERECTOMY - Family History Family history: hypertension - Social History Smoking Status: Current Every Day Smoker Substance Use Type: Alcohol Other Social History: unemployed, lives with - Medications Home Medications: Home Medications Medication Instructions Recorded Confirmed Last Taken Type AtorvaSTATin [Lipitor] 20 mg PO QHS 10/12/17 12/16/17 10/12/17 History Metoprolol [Lopressor TAB] 100 mg PO BID 10/12/17 12/16/17 12/15/17 History amLODIPine [Norvasc] 10 mg PO DAILY 10/12/17 12/16/17 12/15/17 History glipiZIDE [Glucotrol] 5 mg PO BID 10/12/17 12/16/17 12/15/17 History metFORMIN [Glucophage] 500 mg PO BID 10/12/17 12/16/17 12/15/17 History Fenofibrate [Tricor] 145 mg PO QDAY #30 tablet 10/14/17 12/16/17 12/15/17 Rx Ciprofloxacin HCl [Cipro] 500 mg PO BID #10 tablet 12/18/17 Unknown Rx Ferrous Sulfate, Dried [Slow 160 mg PO DAILY #10 tablet.er 12/18/17 Unknown Rx Release Iron 160 Mg tab] Oxycodone HCl [oxyCODONE] 10 mg PO Q6H PRN #12 tablet 12/18/17 Unknown Rx metroNIDAZOLE [Flagyl] 500 mg PO Q8HR #15 tablet 12/18/17 Unknown Rx ED Physical Exam - General General appearance: alert, other (tearful holding abdomen appears in severe pain) - Head Head exam: Present: atraumatic, normocephalic - Eye Eye exam: Present: normal appearance. Absent: scleral icterus, conjunctival injection - ENT ENT exam: Present: mucous membranes moist - Neck Neck exam: Present: normal inspection, full ROM - Respiratory Respiratory exam: Present: normal lung sounds bilaterally. Absent: respiratory distress, wheezes, rales, rhonchi - Cardiovascular Cardiovascular Exam: Present: regular rate, normal rhythm, normal heart sounds. Absent: systolic murmur, diastolic murmur, rubs, gallop - GI/Abdominal GI/Abdominal exam: Present: soft, normal bowel sounds. Absent: distended, tenderness, guarding, rebound - Extremities Exam Extremities exam: Present: normal inspection - Neurological Exam Neurological exam: Present: alert, oriented X3 - Psychiatric Psychiatric exam: Present: anxious, other (tearful obviously upset due to pain) - Skin Skin exam: Present: warm, dry, intact, normal color. Absent: rash ED Course Vital Signs 08/08/19 08/08/19 08/08/19 00:00 00:03 00:30 Temperature 97.8 F Pulse Rate 84 84 90 Respiratory 14 13 14 Rate Blood Pressure 154/90 154/90 155/98 O2 Sat by Pulse 98 99 99 Oximetry 08/08/19 08/08/19 08/08/19 01:00 01:30 02:00 Temperature Pulse Rate 93 H 91 H 95 H Respiratory 15 14 15 Rate Blood Pressure 146/88 142/86 149/86 O2 Sat by Pulse 94 98 96 Oximetry ED Medical Decision Making - Lab Data Result diagrams: 08/07/19 23:57 08/08/19 00:16 - Radiology Data Radiology results: report reviewed Acute on chronic pancreatitis according to CT scan report radiology report - Medical Decision Making Mrs. Ng presents with findings of acute pancreatitis with elevated lipase and corroborating CT findings. Pertinent findings on lab review including normal WBC, metabolic acidosis (starvation vs alcohol ketoacidosis) Admitted to hospitalist service in stable condition. Critical care attestation.: If time is entered above; I have spent that time in minutes in the direct care of this critically ill patient, excluding procedure time. ED Disposition Clinical Impression: Acute pancreatitis Disposition: -09 OP ADMIT IP TO THIS HOSP Is pt being admited?: Yes Does the pt Need Aspirin: No Condition: Stable
[2019-08-08 00:05] LABS: Hematocrit 38.8 % (30.3-42.9); Hemoglobin 13.3 gm/dl (10.1-14.3); Mean Corpuscular HGB Conc 34 % (30-34); Mean Corpuscular Volume 89 fl (79-97); Platelet Count 336 K/mm3 (140-440); Red Blood Count 4.37 M/mm3 (3.65-5.03); Red Cell Distribution Width 14.3 % (13.2-15.2)
[2019-08-08 01:07] LABS: Alanine Aminotransferase 31 units/L (7-56); Albumin 4.2 g/dL (3.9-5); BUN/Creatinine Ratio 23; Blood Urea Nitrogen 27 mg/dL (7-17); Calcium 8.5 mg/dL (8.4-10.2); Hemolysis Index 4
[2019-08-08 01:37] LABS: Bilirubin,Direct < 0.2 mg/dL (0-0.2)
--- NOTE | 2019-08-08 03:03 | Cat Scan Report ---
CT ABDOMEN AND PELVIS WITH CONTRAST INDICATION / CLINICAL INFORMATION: Abdominal Pain hx of pancreatitis. TECHNIQUE: Axial CT images were obtained through the abdomen and pelvis after 100 mL Omnipaque [address] scans at this location are performed using CT dose reduction for ALARA by means of automated exposure control. COMPARISON: CT dated 12/16/17 FINDINGS: LOWER CHEST: No significant abnormality. LIVER: Liver is enlarged and slightly hypodense suggesting fatty infiltration. GALLBLADDER: Calcification along the wall of the fundus the gallbladder is unchanged. No inflammation . BILE DUCTS: Mild intrahepatic and extrahepatic biliary ductal dilation without obstructing stone iden tified. PANCREAS: Moderate peripancreatic inflammation and ill-defined fluid suggesting pancreatitis. Interva l development of diffuse pancreatic gland calcifications indicating a chronic component. Mild dilatat ion of the pancreatic duct. No pancreatic necrosis identified. SPLEEN: No significant abnormality. ADRENALS: No significant abnormality. RIGHT KIDNEY and URETER: No significant abnormality. LEFT KIDNEY and URETER: No significant abnormality. STOMACH and SMALL BOWEL: No significant abnormality. COLON: Scattered colonic diverticula without inflammation. APPENDIX: No significant abnormality. PERITONEUM: No free fluid. No free air. No fluid collection. LYMPH NODES: No significant adenopathy. AORTA and ARTERIES: No significant abnormality. IVC and VEINS: No significant abnormality. URINARY BLADDER: No significant abnormality. REPRODUCTIVE ORGANS: Uterus is absent. No significant adnexal abnormality. ADDITIONAL FINDINGS: None. SKELETAL SYSTEM: No significant abnormality. IMPRESSION: 1. Acute on chronic pancreatitis. No pancreatic necrosis. No drainable peripancreatic fluid collectio n. 2. Hepatomegaly with hepatic steatosis. 3. Mild patellar ductal dilation without obstructing stone identified. Correlation with biliary labs is recommended. Signer Name: Jewel Gilman MD Signed: 08/08/2019 2:58 AM Workstation Name: [id number]
[2019-08-08] MEDS ORDERED: MORPHINE 4 MG/1 ML INJ IV ONE (04:53)
[2019-08-08 04:54] LABS: Eosinophils % (Manual) 0 % (0.0-4.3); Ovalocytes Few; Stomatocytes Few; Total Cells Counted 100
[2019-08-08 04:55] LABS: Macrocytosis Rare; Platelet Estimate Consistent w Auto
[2019-08-08] MEDS ORDERED: SODIUM CHLORIDE 0.9% 1000 ML 1,000 ML IV SCH ×2 (07:00→12:00)
--- NOTE | 2019-08-08 10:18 | History and Physical Report ---
History of Present Illness Date of examination: 08/08/19 Date of admission: 08/08/19 03:44 Chief complaint: abd pain History of present illness: Mrs. Ng is a 54-year-old female with history of hypertension, diabetes mellitus, asthma, pancreatitis, alcohol use who presents to the emergency department with abdominal pain, vomiting and diarrhea. She reports that she drinks alcohol on a regular basis. She consumes approximately a pint per day. She reportedly consumed slightly more than that for her birthday 2 days ago. Patient states that she stopped drinking alcohol a few months ago but started back 2 months ago. She reports Severe central abdominal pain. Sharp achy in nature. 10 out of 10 in severity. No hematemesis. No bloody stools. Patient denies any chest pain or shortness of breath. Past History Past Medical History: diabetes, hypertension, other (asthma, pancreatitis) Past Surgical History: No surgical history Social history: alcohol abuse Family history: no significant family history Medications and Allergies Allergies Allergy/AdvReac Type Severity Reaction Status Date / Time latex Allergy Hives Verified 10/12/17 14:15 Sulfa (Sulfonamide Allergy Swelling Verified 10/12/17 14:15 Antibiotics) Home Medications Medication Instructions Recorded Confirmed Last Taken Type AtorvaSTATin [Lipitor] 20 mg PO QHS 10/12/17 12/16/17 10/12/17 History Metoprolol [Lopressor TAB] 100 mg PO BID 10/12/17 12/16/17 12/15/17 History amLODIPine [Norvasc] 10 mg PO DAILY 10/12/17 12/16/17 12/15/17 History glipiZIDE [Glucotrol] 5 mg PO BID 10/12/17 12/16/17 12/15/17 History metFORMIN [Glucophage] 500 mg PO BID 10/12/17 12/16/17 12/15/17 History Fenofibrate [Tricor] 145 mg PO QDAY #30 tablet 10/14/17 12/16/17 12/15/17 Rx Ciprofloxacin HCl [Cipro] 500 mg PO BID #10 tablet 12/18/17 Unknown Rx Ferrous Sulfate, Dried [Slow 160 mg PO DAILY #10 tablet.er 12/18/17 Unknown Rx Release Iron 160 Mg tab] Oxycodone HCl [oxyCODONE] 10 mg PO Q6H PRN #12 tablet 12/18/17 Unknown Rx metroNIDAZOLE [Flagyl] 500 mg PO Q8HR #15 tablet 12/18/17 Unknown Rx Active Meds: Active Medications Acetaminophen (Tylenol) 650 mg PO Q4H PRN PRN Reason: Pain MILD(1-3)/Fever >100.5/NINO Sodium Chloride (Nacl 0.9% 1000 Ml) 1,000 mls @ 75 mls/hr IV DIRECT ARIANE Last Admin: 08/08/19 08:56 Dose: 75 mls/hr Documented by: Ondansetron HCl (Zofran) 4 mg IV Q8H PRN PRN Reason: Nausea And Vomiting Sodium Chloride (Sodium Chloride Flush Syringe 10 Ml) 10 ml IV BID ARIANE Sodium Chloride (Sodium Chloride Flush Syringe 10 Ml) 10 ml IV PRN PRN PRN Reason: LINE FLUSH Review of Systems All systems: negative Exam - Constitutional Vitals: Temp Pulse Resp BP Pulse Ox 98.0 F 111 H 16 123/79 85 08/08/19 06:43 08/08/19 06:43 08/08/19 06:43 08/08/19 06:43 08/08/19 06:43 General appearance: Present: no acute distress, well-nourished - EENT Eyes: Present: PERRL ENT: hearing intact, clear oral mucosa - Neck Neck: Present: supple, normal ROM - Respiratory Respiratory effort: normal Respiratory: bilateral: CTA - Cardiovascular Heart Sounds: Present: S1 & S2. Absent: rub, click - Extremities Extremities: pulses symmetrical, No edema Peripheral Pulses: within normal limits - Abdominal General gastrointestinal: Present: soft, tender, non-distended, normal bowel sounds Localized gastrointestinal: tender: epigastric periumbilical (moderate) Female genitourinary: Present: normal - Integumentary Integumentary: Present: clear, warm, dry - Musculoskeletal Musculoskeletal: gait normal, strength equal bilaterally - Psychiatric Psychiatric: appropriate mood/affect, intact judgment & insight - Neurologic Neurologic: CNII-XII intact, moves all extremities Results - Labs CBC & Chem 7: 08/07/19 23:57 08/08/19 00:16 Labs: Laboratory Last Values WBC 8.6 K/mm3 (4.5-11.0) 08/07/19 23:57 RBC 4.37 M/mm3 (3.65-5.03) 08/07/19 23:57 Hgb 13.3 gm/dl (10.1-14.3) 08/07/19 23:57 Hct 38.8 % (30.3-42.9) 08/07/19 23:57 MCV 89 fl (79-97) 08/07/19 23:57 MCH 31 pg (28-32) 08/07/19 23:57 MCHC 34 % (30-34) 08/07/19 23:57 RDW 14.3 % (13.2-15.2) 08/07/19 23:57 Plt Count 336 K/mm3 (140-440) 08/07/19 23:57 Lymph % (Auto) Convention Worker 08/07/19 23:57 Lymph # Convention Worker 08/07/19 23:57 Add Manual Diff Complete 08/07/19 23:57 Total Counted 100 08/07/19 23:57 Seg Neutrophils % Convention Worker 08/07/19 23:57 Seg Neuts % (Manual) 36.0 % (40.0-70.0) L 08/07/19 23:57 Band Neutrophils % 0 % 08/07/19 23:57 Lymphocytes % (Manual) 52.0 % (13.4-35.0) H 08/07/19 23:57 Reactive Lymphs % (Man) 0 % 08/07/19 23:57 Monocytes % (Manual) 8.0 % (0.0-7.3) H 08/07/19 23:57 Eosinophils % (Manual) 0 % (0.0-4.3) 08/07/19 23:57 Basophils % (Manual) 4.0 % (0.0-1.8) H 08/07/19 23:57 Metamyelocytes % 0 % 08/07/19 23:57 Myelocytes % 0 % 08/07/19 23:57 Promyelocytes % 0 % 08/07/19 23:57 Blast Cells % 0 % 08/07/19 23:57 Nucleated RBC % Not Reportable 08/07/19 23:57 Seg Neutrophils # Man 3.1 K/mm3 (1.8-7.7) 08/07/19 23:57 Band Neutrophils # 0.0 K/mm3 08/07/19 23:57 Lymphocytes # (Manual) 4.5 K/mm3 (1.2-5.4) 08/07/19 23:57 Abs React Lymphs (Man) 0.0 K/mm3 08/07/19 23:57 Monocytes # (Manual) 0.7 K/mm3 (0.0-0.8) 08/07/19 23:57 Eosinophils # (Manual) 0.0 K/mm3 (0.0-0.4) 08/07/19 23:57 Basophils # (Manual) 0.3 K/mm3 (0.0-0.1) H 08/07/19 23:57 Metamyelocytes # 0.0 K/mm3 08/07/19 23:57 Myelocytes # 0.0 K/mm3 08/07/19 23:57 Promyelocytes # 0.0 K/mm3 08/07/19 23:57 Blast Cells # 0.0 K/mm3 08/07/19 23:57 WBC Morphology Not Reportable 08/07/19 23:57 Hypersegmented Neuts Not Reportable 08/07/19 23:57 Hyposegmented Neuts Not Reportable 08/07/19 23:57 Hypogranular Neuts Not Reportable 08/07/19 23:57 Smudge Cells Not Reportable 08/07/19 23:57 Toxic Granulation Not Reportable 08/07/19 23:57 Toxic Vacuolation Not Reportable 08/07/19 23:57 Dohle Bodies Not Reportable 08/07/19 23:57 Pelger-Huet Anomaly Not Reportable 08/07/19 23:57 Leslye Rods Not Reportable 08/07/19 23:57 Platelet Estimate Consistent w auto 08/07/19 23:57 Clumped Platelets Not Reportable 08/07/19 23:57 Plt Clumps, EDTA Not Reportable 08/07/19 23:57 Large Platelets Not Reportable 08/07/19 23:57 Giant Platelets Not Reportable 08/07/19 23:57 Platelet Satelliting Not Reportable 08/07/19 23:57 Plt Morphology Comment Not Reportable 08/07/19 23:57 RBC Morphology Not Reportable 08/07/19 23:57 Dimorphic RBCs Not Reportable 08/07/19 23:57 Polychromasia Not Reportable 08/07/19 23:57 Hypochromasia Not Reportable 08/07/19 23:57 Poikilocytosis Not Reportable 08/07/19 23:57 Anisocytosis Not Reportable 08/07/19 23:57 Microcytosis Not Reportable 08/07/19 23:57 Macrocytosis Rare 08/07/19 23:57 Spherocytes Not Reportable 08/07/19 23:57 Pappenheimer Bodies Not Reportable 08/07/19 23:57 Sickle Cells Not Reportable 08/07/19 23:57 Target Cells Not Reportable 08/07/19 23:57 Tear Drop Cells Not Reportable 08/07/19 23:57 Ovalocytes Few 08/07/19 23:57 Stomatocytes Few 08/07/19 23:57 Helmet Cells Not Reportable 08/07/19 23:57 [place] Bodies Not Reportable 08/07/19 23:57 [place] Rings Not Reportable 08/07/19 23:57 Nataly Cells Not Reportable 08/07/19 23:57 Bite Cells Not Reportable 08/07/19 23:57 Crenated Cell Not Reportable 08/07/19 23:57 Elliptocytes Not Reportable 08/07/19 23:57 Acanthocytes (Spur) Not Reportable 08/07/19 23:57 Rouleaux Not Reportable 08/07/19 23:57 Hemoglobin C Crystals Not Reportable 08/07/19 23:57 Schistocytes Not Reportable 08/07/19 23:57 Malaria parasites Not Reportable 08/07/19 23:57 Say Bodies Not Reportable 08/07/19 23:57 Hem Pathologist Commnt No 08/07/19 23:57 Sodium 144 mmol/L (137-145) 08/08/19 00:16 Potassium 3.4 mmol/L (3.6-5.0) L 08/08/19 00:16 Chloride 106.8 mmol/L (98-107) 08/08/19 00:16 Carbon Dioxide 16 mmol/L (22-30) L 08/08/19 00:16 Anion Gap 25 mmol/L 08/08/19 00:16 BUN 27 mg/dL (7-17) H 08/08/19 00:16 Creatinine 1.2 mg/dL (0.7-1.2) 08/08/19 00:16 Estimated GFR 56 ml/min 08/08/19 00:16 BUN/Creatinine Ratio 23 % 08/08/19 00:16 Glucose 98 mg/dL (65-100) 08/08/19 00:16 POC Glucose 155 (70-105) H 08/08/19 08:20 Calcium 8.5 mg/dL (8.4-10.2) 08/08/19 00:16 Total Bilirubin 0.50 mg/dL (0.1-1.2) 08/08/19 00:16 Direct Bilirubin < 0.2 mg/dL (0-0.2) 08/08/19 00:16 Indirect Bilirubin 0.3 mg/dL 08/08/19 00:16 AST 51 units/L (5-40) H 08/08/19 00:16 ALT 31 units/L (7-56) 08/08/19 00:16 Alkaline Phosphatase 160 units/L (35-129) H 08/08/19 00:16 Total Protein 7.1 g/dL (6.3-8.2) 08/08/19 00:16 Albumin 4.2 g/dL (3.9-5) 08/08/19 00:16 Albumin/Globulin Ratio 1.4 % 08/08/19 00:16 Lipase 402 units/L (13-60) H 08/08/19 00:16 Assessment and Plan Assessment and plan: Acute alcoholic pancreatitis. Continue IV fluid hydration and pain control. Continue NPO status. Check serial lipase. Check lipid panel. Diabetes mellitus type 2. Continue Accu-Cheks and sliding scale insulin. Resume metformin and glipizide once patient is taking by mouth. Hypertension. Continue Norvasc and metoprolol. Hyperlipidemia. Resume Lipitor.
[2019-08-08] MEDS: ACETAMINOPHEN 325 MG TAB PO PRN ×3 (11:12→20:28)
[2019-08-08 12:04] LABS: Chol/HDL Ratio 3.2 %
--- NOTE | 2019-08-08 15:46 | Gastroenterology Consultation ---
<MARILUZ MAYA - Last Filed: 08/08/19 16:12> History of Present Illness - Reason for Consult Consult date: 08/08/19 pancreatitis Requesting physician: HERMINIO OCONNOR - History of Present Illness Patient is a 54 y/o female with PMH of HTN, DM, asthma, chronic pancreatitis, and ETOH abuse who presented to ED with c/o upper abdominal pain with associated N/V, and diarrhea. Upon admission, lipase was noted to be elevated and CT showed pancreatitis to which GI has been consulted. Patient is previously known to our service. She has a hx of chronic pancreatitis 2/2 ETOH with last consult 10/2017. This afternoon patient was resting in bed with mild distress 2/2 continued abd pain. She reports daily use of alcohol but states that she "drank alot" this Monday for her birthday and then developed acute abd pain the following day, which was yesterday. N/V and diarrhea improving. Denies fever, CP, wt loss, jaundice, or signs of bleeding.No recent abx use, travel, or ill contacts. s/p CCY. Past History Past Medical History: diabetes, hypertension, other (asthma, chronic pancreatitis) Past Surgical History: cholecystectomy, hysterectomy, Other (breast) Social history: smoking, alcohol abuse Family history: hypertension Medications and Allergies Allergies Allergy/AdvReac Type Severity Reaction Status Date / Time latex Allergy Hives Verified 10/12/17 14:15 Sulfa (Sulfonamide Allergy Swelling Verified 10/12/17 14:15 Antibiotics) Home Medications Medication Instructions Recorded Confirmed Last Taken Type Metoprolol [Lopressor TAB] 1 mg PO DAILY 10/12/17 08/08/19 08/07/19 10:00 History amLODIPine [Norvasc] 10 mg PO DAILY 10/12/17 08/08/19 08/07/19 10:00 History 10 MG glipiZIDE [Glucotrol] 5 mg PO DAILY 10/12/17 08/08/19 08/07/19 10:00 History 5 MG metFORMIN [Glucophage] 500 mg PO DAILY 10/12/17 08/08/19 08/07/19 10:00 History 500 MG Fenofibrate [Tricor] 145 mg PO QDAY #30 tablet 10/14/17 08/08/19 08/07/19 10:00 Rx 145 MG Oxycodone HCl [oxyCODONE] 10 mg PO Q6H PRN #12 tablet 12/18/17 08/08/19 08/07/19 05:00 Rx 10 MG Active Meds: Active Medications Acetaminophen (Tylenol) 650 mg PO Q4H PRN PRN Reason: Pain MILD(1-3)/Fever >100.5/NINO Last Admin: 08/08/19 15:28 Dose: 650 mg Documented by: Amlodipine Besylate (Norvasc) 10 mg PO DAILY ARIANE Atorvastatin Calcium (Lipitor) 20 mg PO QHS ARIANE Enoxaparin Sodium (Lovenox) 40 mg SUB-Q QDAY ARIANE Fenofibrate (Tricor) 145 mg PO QDAY ARIANE Sodium Chloride (Nacl 0.9% 1000 Ml) 1,000 mls @ 150 mls/hr IV DIRECT ARIANE Metoprolol Tartrate (Lopressor) 100 mg PO BID ARIANE Ondansetron HCl (Zofran) 4 mg IV Q8H PRN PRN Reason: Nausea And Vomiting Sodium Chloride (Sodium Chloride Flush Syringe 10 Ml) 10 ml IV BID ARIANE Sodium Chloride (Sodium Chloride Flush Syringe 10 Ml) 10 ml IV PRN PRN PRN Reason: LINE FLUSH medication reviewed/updated as required Review of Systems - Review of Systems All systems: negative Gastrointestinal: abdominal pain, nausea, vomiting, diarrhea Exam - Constitutional Vital Signs: Temp Pulse Resp BP Pulse Ox 98.4 F 99 H 14 145/85 85 08/08/19 11:43 08/08/19 13:00 08/08/19 11:43 08/08/19 11:43 08/08/19 06:43 General appearance: mild distress (2/2 abd pain) - EENT Eyes: PERRL, EOM intact ENT: hearing intact - Respiratory Respiratory effort: normal - Cardiovascular Rhythm: other (tachycardia) - Gastrointestinal General gastrointestinal: Present: soft, tender, non-distended, normal bowel sounds - Integumentary Integumentary: Present: warm, dry - Neurologic Neurological: alert and oriented x3 - Labs CBC & Chem 7: 08/07/19 23:57 08/08/19 00:16 Lab Results: Laboratory Results - last 24 hr 08/07/19 08/08/19 08/08/19 23:57 00:16 08:20 WBC 8.6 RBC 4.37 Hgb 13.3 Hct 38.8 MCV 89 MCH 31 MCHC 34 RDW 14.3 Plt Count 336 Lymph % (Auto) Night Clerk Auditor Lymph # Night Clerk Auditor Add Manual Diff Complete Total Counted 100 Seg Neutrophils % Night Clerk Auditor Seg Neuts % (Manual) 36.0 L Band Neutrophils % 0 Lymphocytes % (Manual) 52.0 H Reactive Lymphs % (Man) 0 Monocytes % (Manual) 8.0 H Eosinophils % (Manual) 0 Basophils % (Manual) 4.0 H Metamyelocytes % 0 Myelocytes % 0 Promyelocytes % 0 Blast Cells % 0 Nucleated RBC % Not Reportable Seg Neutrophils # Man 3.1 Band Neutrophils # 0.0 Lymphocytes # (Manual) 4.5 Abs React Lymphs (Man) 0.0 Monocytes # (Manual) 0.7 Eosinophils # (Manual) 0.0 Basophils # (Manual) 0.3 H Metamyelocytes # 0.0 Myelocytes # 0.0 Promyelocytes # 0.0 Blast Cells # 0.0 WBC Morphology Not Reportable Hypersegmented Neuts Not Reportable Hyposegmented Neuts Not Reportable Hypogranular Neuts Not Reportable Smudge Cells Not Reportable Toxic Granulation Not Reportable Toxic Vacuolation Not Reportable Dohle Bodies Not Reportable Pelger-Huet Anomaly Not Reportable Leslye Rods Not Reportable Platelet Estimate Consistent w auto Clumped Platelets Not Reportable Plt Clumps, EDTA Not Reportable Large Platelets Not Reportable Giant Platelets Not Reportable Platelet Satelliting Not Reportable Plt Morphology Comment Not Reportable RBC Morphology Not Reportable Dimorphic RBCs Not Reportable Polychromasia Not Reportable Hypochromasia Not Reportable Poikilocytosis Not Reportable Anisocytosis Not Reportable Microcytosis Not Reportable Macrocytosis Rare Spherocytes Not Reportable Pappenheimer Bodies Not Reportable Sickle Cells Not Reportable Target Cells Not Reportable Tear Drop Cells Not Reportable Ovalocytes Few Stomatocytes Few Helmet Cells Not Reportable [place] Bodies Not Reportable [place] Rings Not Reportable Nataly Cells Not Reportable Bite Cells Not Reportable Crenated Cell Not Reportable Elliptocytes Not Reportable Acanthocytes (Spur) Not Reportable Rouleaux Not Reportable Hemoglobin C Crystals Not Reportable Schistocytes Not Reportable Malaria parasites Not Reportable Say Bodies Not Reportable Hem Pathologist Commnt No Sodium 144 Potassium 3.4 L Chloride 106.8 Carbon Dioxide 16 L Anion Gap 25 BUN 27 H Creatinine 1.2 Estimated GFR 56 BUN/Creatinine Ratio 23 Glucose 98 POC Glucose 155 H Calcium 8.5 Total Bilirubin 0.50 Direct Bilirubin < 0.2 Indirect Bilirubin 0.3 AST 51 H ALT 31 Alkaline Phosphatase 160 H Total Protein 7.1 Albumin 4.2 Albumin/Globulin Ratio 1.4 Triglycerides Cholesterol LDL Cholesterol Direct HDL Cholesterol Cholesterol/HDL Ratio Lipase 402 H 08/08/19 11:29 WBC RBC Hgb Hct MCV MCH MCHC RDW Plt Count Lymph % (Auto) Lymph # Add Manual Diff Total Counted Seg Neutrophils % Seg Neuts % (Manual) Band Neutrophils % Lymphocytes % (Manual) Reactive Lymphs % (Man) Monocytes % (Manual) Eosinophils % (Manual) Basophils % (Manual) Metamyelocytes % Myelocytes % Promyelocytes % Blast Cells % Nucleated RBC % Seg Neutrophils # Man Band Neutrophils # Lymphocytes # (Manual) Abs React Lymphs (Man) Monocytes # (Manual) Eosinophils # (Manual) Basophils # (Manual) Metamyelocytes # Myelocytes # Promyelocytes # Blast Cells # WBC Morphology Hypersegmented Neuts Hyposegmented Neuts Hypogranular Neuts Smudge Cells Toxic Granulation Toxic Vacuolation Dohle Bodies Pelger-Huet Anomaly Leslye Rods Platelet Estimate Clumped Platelets Plt Clumps, EDTA Large Platelets Giant Platelets Platelet Satelliting Plt Morphology Comment RBC Morphology Dimorphic RBCs Polychromasia Hypochromasia Poikilocytosis Anisocytosis Microcytosis Macrocytosis Spherocytes Pappenheimer Bodies Sickle Cells Target Cells Tear Drop Cells Ovalocytes Stomatocytes Helmet Cells [place] Bodies [place] Rings [place] Cells Bite Cells Crenated Cell Elliptocytes Acanthocytes (Spur) Rouleaux Hemoglobin C Crystals Schistocytes Malaria parasites Say Bodies Hem Pathologist Commnt Sodium Potassium Chloride Carbon Dioxide Anion Gap BUN Creatinine Estimated GFR BUN/Creatinine Ratio Glucose POC Glucose Calcium Total Bilirubin Direct Bilirubin Indirect Bilirubin AST ALT Alkaline Phosphatase Total Protein Albumin Albumin/Globulin Ratio Triglycerides 1312 H Cholesterol 141 LDL Cholesterol Direct 36 L HDL Cholesterol 44 Cholesterol/HDL Ratio 3.20 Lipase Assessment and Plan 1.acute on chronic pancreatitis 2.ETOH abuse -afebrile -WBC, H/H, plt WNL -LFTs- T.cielo 0.50, AST 51, ALT 31, alk phos 160 -lipase 402 -triglycerides 1312 -abd CT showed showed acute on chronic pancreatitis (no necrosis or drainable fluid collection), hepatomegaly with hepatic steatosis, and mild biliary duct dilation (no evidence of stone; of note was present on CT in 2017 and underwent MR/MRCP at that time which was negative; patient is s/p CCY) -etiology-most likely 2/2 ETOH +/- hypertriglyceridemia also contributing -Keep NPO -start on PPI -continue fenofibrate -continue to trend labs (CRP in am) and supportive care (IVF, pain management, antiemetics, etc) -alcohol cessation dicussed with patient-monitor for signs of withdrawal -will follow <MINANDERSON - Last Filed: 08/08/19 19:05> Medications and Allergies Active Meds: Active Medications Acetaminophen (Tylenol) 650 mg PO Q4H PRN PRN Reason: Pain MILD(1-3)/Fever >100.5/NINO Last Admin: 08/08/19 15:28 Dose: 650 mg Documented by: Amlodipine Besylate (Norvasc) 10 mg PO DAILY ARIANE Atorvastatin Calcium (Lipitor) 20 mg PO QHS ARIANE Enoxaparin Sodium (Lovenox) 40 mg SUB-Q QDAY ARIANE Fenofibrate (Tricor) 145 mg PO QDAY ARIANE Sodium Chloride (Nacl 0.9% 1000 Ml) 1,000 mls @ 150 mls/hr IV DIRECT ARIANE Metoprolol Tartrate (Lopressor) 100 mg PO BID ARIANE Ondansetron HCl (Zofran) 4 mg IV Q8H PRN PRN Reason: Nausea And Vomiting Sodium Chloride (Sodium Chloride Flush Syringe 10 Ml) 10 ml IV BID ARIANE Sodium Chloride (Sodium Chloride Flush Syringe 10 Ml) 10 ml IV PRN PRN PRN Reason: LINE FLUSH Exam - Constitutional Vital Signs: Temp Pulse Resp BP Pulse Ox 98.4 F 114 H 14 145/88 94 08/08/19 16:49 08/08/19 16:49 08/08/19 16:49 08/08/19 16:49 08/08/19 16:49 - Labs CBC & Chem 7: 08/07/19 23:57 08/08/19 00:16 Lab Results: Laboratory Results - last 24 hr 08/07/19 08/08/19 08/08/19 23:57 00:16 08:20 WBC 8.6 RBC 4.37 Hgb 13.3 Hct 38.8 MCV 89 MCH 31 MCHC 34 RDW 14.3 Plt Count 336 Lymph % (Auto) Night Clerk Auditor Lymph # Night Clerk Auditor Add Manual Diff Complete Total Counted 100 Seg Neutrophils % Night Clerk Auditor Seg Neuts % (Manual) 36.0 L Band Neutrophils % 0 Lymphocytes % (Manual) 52.0 H Reactive Lymphs % (Man) 0 Monocytes % (Manual) 8.0 H Eosinophils % (Manual) 0 Basophils % (Manual) 4.0 H Metamyelocytes % 0 Myelocytes % 0 Promyelocytes % 0 Blast Cells % 0 Nucleated RBC % Not Reportable Seg Neutrophils # Man 3.1 Band Neutrophils # 0.0 Lymphocytes # (Manual) 4.5 Abs React Lymphs (Man) 0.0 Monocytes # (Manual) 0.7 Eosinophils # (Manual) 0.0 Basophils # (Manual) 0.3 H Metamyelocytes # 0.0 Myelocytes # 0.0 Promyelocytes # 0.0 Blast Cells # 0.0 WBC Morphology Not Reportable Hypersegmented Neuts Not Reportable Hyposegmented Neuts Not Reportable Hypogranular Neuts Not Reportable Smudge Cells Not Reportable Toxic Granulation Not Reportable Toxic Vacuolation Not Reportable Dohle Bodies Not Reportable Pelger-Huet Anomaly Not Reportable Leslye Rods Not Reportable Platelet Estimate Consistent w auto Clumped Platelets Not Reportable Plt Clumps, EDTA Not Reportable Large Platelets Not Reportable Giant Platelets Not Reportable Platelet Satelliting Not Reportable Plt Morphology Comment Not Reportable RBC Morphology Not Reportable Dimorphic RBCs Not Reportable Polychromasia Not Reportable Hypochromasia Not Reportable Poikilocytosis Not Reportable Anisocytosis Not Reportable Microcytosis Not Reportable Macrocytosis Rare Spherocytes Not Reportable Pappenheimer Bodies Not Reportable Sickle Cells Not Reportable Target Cells Not Reportable Tear Drop Cells Not Reportable Ovalocytes Few Stomatocytes Few Helmet Cells Not Reportable [place] Bodies Not Reportable [place] Rings Not Reportable Nataly Cells Not Reportable Bite Cells Not Reportable Crenated Cell Not Reportable Elliptocytes Not Reportable Acanthocytes (Spur) Not Reportable Rouleaux Not Reportable Hemoglobin C Crystals Not Reportable Schistocytes Not Reportable Malaria parasites Not Reportable Say Bodies Not Reportable Hem Pathologist Commnt No Sodium 144 Potassium 3.4 L Chloride 106.8 Carbon Dioxide 16 L Anion Gap 25 BUN 27 H Creatinine 1.2 Estimated GFR 56 BUN/Creatinine Ratio 23 Glucose 98 POC Glucose 155 H Calcium 8.5 Total Bilirubin 0.50 Direct Bilirubin < 0.2 Indirect Bilirubin 0.3 AST 51 H ALT 31 Alkaline Phosphatase 160 H Total Protein 7.1 Albumin 4.2 Albumin/Globulin Ratio 1.4 Triglycerides Cholesterol LDL Cholesterol Direct HDL Cholesterol Cholesterol/HDL Ratio Lipase 402 H 08/08/19 08/08/19 11:29 16:44 WBC RBC Hgb Hct MCV MCH MCHC RDW Plt Count Lymph % (Auto) Lymph # Add Manual Diff Total Counted Seg Neutrophils % Seg Neuts % (Manual) Band Neutrophils % Lymphocytes % (Manual) Reactive Lymphs % (Man) Monocytes % (Manual) Eosinophils % (Manual) Basophils % (Manual) Metamyelocytes % Myelocytes % Promyelocytes % Blast Cells % Nucleated RBC % Seg Neutrophils # Man Band Neutrophils # Lymphocytes # (Manual) Abs React Lymphs (Man) Monocytes # (Manual) Eosinophils # (Manual) Basophils # (Manual) Metamyelocytes # Myelocytes # Promyelocytes # Blast Cells # WBC Morphology Hypersegmented Neuts Hyposegmented Neuts Hypogranular Neuts Smudge Cells Toxic Granulation Toxic Vacuolation Dohle Bodies Pelger-Huet Anomaly Leslye Rods Platelet Estimate Clumped Platelets Plt Clumps, EDTA Large Platelets Giant Platelets Platelet Satelliting Plt Morphology Comment RBC Morphology Dimorphic RBCs Polychromasia Hypochromasia Poikilocytosis Anisocytosis Microcytosis Macrocytosis Spherocytes Pappenheimer Bodies Sickle Cells Target Cells Tear Drop Cells Ovalocytes Stomatocytes Helmet Cells [place] Bodies [place] Rings [place] Cells Bite Cells Crenated Cell Elliptocytes Acanthocytes (Spur) Rouleaux Hemoglobin C Crystals Schistocytes Malaria parasites Say Bodies Hem Pathologist Commnt Sodium Potassium Chloride Carbon Dioxide Anion Gap BUN Creatinine Estimated GFR BUN/Creatinine Ratio Glucose POC Glucose 146 H Calcium Total Bilirubin Direct Bilirubin Indirect Bilirubin AST ALT Alkaline Phosphatase Total Protein Albumin Albumin/Globulin Ratio Triglycerides 1312 H Cholesterol 141 LDL Cholesterol Direct 36 L HDL Cholesterol 44 Cholesterol/HDL Ratio 3.20 Lipase Assessment and Plan Patient seen and examined on 08/08/2019. Agree with A/P as stated. 54 yo female with h/o cholecystectomy and alcohol use as well as chronic pancreatitis admitted for abdominal pain. Acute on chronic pancreatitis. Likely 2/2 ETOH possible hypertriglyceridemia contributing. elevated at 1312. - recommend medical therapy with NPO, IVF, pain management. Continue with fenofibrate. - alcohol cessation discussed. - will follow.
[2019-08-08] MEDS: METOPROLOL TARTRATE 100 MG TAB PO SCH (23:24)
[2019-08-08] MEDS: MORPHINE 2 MG/1 ML INJ IV PRN (23:24)
[2019-08-09] MEDS: MORPHINE 2 MG/1 ML INJ IV PRN ×5 (04:43→22:58)
[2019-08-09 05:10] LABS: Basophils # (Auto) 0.1 K/mm3 (0.0-0.1); Basophils % (Auto) 0.7 % (0.0-1.8); Eosinophils # (Auto) 0.1 K/mm3 (0.0-0.4); Eosinophils % (Auto) 1.6 % (0.0-4.3); Hematocrit 34.4 % (30.3-42.9); Hemoglobin 11.4 gm/dl (10.1-14.3); Lymphocytes # (Auto) 2.1 K/mm3 (1.2-5.4); Lymphocytes % (Auto) 25.9 % (13.4-35.0); Mean Corpuscular HGB Conc 33 % (30-34); Mean Corpuscular Volume 90 fl (79-97); Monocytes # (Auto) 0.7 K/mm3 (0.0-0.8); Monocytes % (Auto) 7.9 % (0.0-7.3); Platelet Count 180 K/mm3 (140-440); Red Blood Count 3.82 M/mm3 (3.65-5.03); Red Cell Distribution Width 14.2 % (13.2-15.2)
[2019-08-09 05:22] LABS: Alanine Aminotransferase 24 units/L (7-56); Albumin 3.8 g/dL (3.9-5); BUN/Creatinine Ratio 15; Blood Urea Nitrogen 15 mg/dL (7-17); Calcium 7.1 mg/dL (8.4-10.2); Hemolysis Index 2
[2019-08-09] MEDS: ENOXAPARIN 40 MG/0.4 ML INJ SUB-Q SCH (09:16)
[2019-08-09] MEDS: METOPROLOL TARTRATE 100 MG TAB PO SCH ×2 (09:16→21:39)
[2019-08-09] MEDS: FENOFIBRATE 145 MG TAB PO SCH (09:17)
[2019-08-09] MEDS: amLODIPine 10 MG TAB PO SCH (09:17)
--- NOTE | 2019-08-09 10:00 | Progress Note ---
Assessment and Plan Assessment and plan: Acute pancreatitis. Etiology secondary to EtOH and hypertriglyceridemia. CT showed showed acute on chronic pancreatitis (no necrosis or drainable fluid collection), hepatomegaly with hepatic steatosis, and mild biliary duct dilation, no evidence of stone. Continue IV fluid hydration and pain control. Continue NPO status. Lipase actually worsened. Diabetes mellitus type 2. Continue Accu-Cheks and sliding scale insulin. Resume metformin and glipizide once patient is taking by mouth. Hypertension. Continue Norvasc and metoprolol. Hyperlipidemia. Resume Lipitor. History Interval history: No new issues overnight. Patient still complains of abdominal pain. Hospitalist Physical - Constitutional Vitals: Temp Pulse Resp BP Pulse Ox 98.4 F 79 18 168/94 91 08/09/19 05:34 08/09/19 05:34 08/09/19 05:34 08/09/19 09:16 08/09/19 05:34 General appearance: Present: no acute distress, well-nourished - EENT Eyes: Present: PERRL, EOM intact ENT: hearing intact, clear oral mucosa, dentition normal - Neck Neck: Present: supple, normal ROM - Respiratory Respiratory effort: normal Respiratory: bilateral: CTA - Cardiovascular Rhythm: regular Heart Sounds: Present: S1 & S2. Absent: gallop, rub - Extremities Extremities: no ischemia, No edema, Full ROM - Abdominal General gastrointestinal: soft, non-tender, tender, normal bowel sounds Localized gastrointestinal: tender: epigastric periumbilical (moderate) - Integumentary Integumentary: Present: clear, warm, dry - Neurologic Neurologic: CNII-XII intact, moves all extremities Results - Labs CBC & Chem 7: 08/09/19 04:23 08/09/19 04:23 Labs: Laboratory Last Values WBC 8.2 K/mm3 (4.5-11.0) 08/09/19 04:23 RBC 3.82 M/mm3 (3.65-5.03) 08/09/19 04:23 Hgb 11.4 gm/dl (10.1-14.3) 08/09/19 04:23 Hct 34.4 % (30.3-42.9) 08/09/19 04:23 MCV 90 fl (79-97) 08/09/19 04:23 MCH 30 pg (28-32) 08/09/19 04:23 MCHC 33 % (30-34) 08/09/19 04:23 RDW 14.2 % (13.2-15.2) 08/09/19 04:23 Plt Count 180 K/mm3 (140-440) 08/09/19 04:23 Lymph % (Auto) 25.9 % (13.4-35.0) 08/09/19 04:23 [place] % (Auto) 7.9 % (0.0-7.3) H 08/09/19 04:23 Eos % (Auto) 1.6 % (0.0-4.3) 08/09/19 04:23 Baso % (Auto) 0.7 % (0.0-1.8) 08/09/19 04:23 Lymph # 2.1 K/mm3 (1.2-5.4) 08/09/19 04:23 [place] # 0.7 K/mm3 (0.0-0.8) 08/09/19 04:23 Eos # 0.1 K/mm3 (0.0-0.4) 08/09/19 04:23 Baso # 0.1 K/mm3 (0.0-0.1) 08/09/19 04:23 Add Manual Diff Complete 08/07/19 23:57 Total Counted 100 08/07/19 23:57 Seg Neutrophils % 63.9 % (40.0-70.0) 08/09/19 04:23 Seg Neuts % (Manual) 36.0 % (40.0-70.0) L 08/07/19 23:57 Band Neutrophils % 0 % 08/07/19 23:57 Lymphocytes % (Manual) 52.0 % (13.4-35.0) H 08/07/19 23:57 Reactive Lymphs % (Man) 0 % 08/07/19 23:57 Monocytes % (Manual) 8.0 % (0.0-7.3) H 08/07/19 23:57 Eosinophils % (Manual) 0 % (0.0-4.3) 08/07/19 23:57 Basophils % (Manual) 4.0 % (0.0-1.8) H 08/07/19 23:57 Metamyelocytes % 0 % 08/07/19 23:57 Myelocytes % 0 % 08/07/19 23:57 Promyelocytes % 0 % 08/07/19 23:57 Blast Cells % 0 % 08/07/19 23:57 Nucleated RBC % Not Reportable 08/07/19 23:57 Seg Neutrophils # 5.3 K/mm3 (1.8-7.7) 08/09/19 04:23 Seg Neutrophils # Man 3.1 K/mm3 (1.8-7.7) 08/07/19 23:57 Band Neutrophils # 0.0 K/mm3 08/07/19 23:57 Lymphocytes # (Manual) 4.5 K/mm3 (1.2-5.4) 08/07/19 23:57 Abs React Lymphs (Man) 0.0 K/mm3 08/07/19 23:57 Monocytes # (Manual) 0.7 K/mm3 (0.0-0.8) 08/07/19 23:57 Eosinophils # (Manual) 0.0 K/mm3 (0.0-0.4) 08/07/19 23:57 Basophils # (Manual) 0.3 K/mm3 (0.0-0.1) H 08/07/19 23:57 Metamyelocytes # 0.0 K/mm3 08/07/19 23:57 Myelocytes # 0.0 K/mm3 08/07/19 23:57 Promyelocytes # 0.0 K/mm3 08/07/19 23:57 Blast Cells # 0.0 K/mm3 08/07/19 23:57 WBC Morphology Not Reportable 08/07/19 23:57 Hypersegmented Neuts Not Reportable 08/07/19 23:57 Hyposegmented Neuts Not Reportable 08/07/19 23:57 Hypogranular Neuts Not Reportable 08/07/19 23:57 Smudge Cells Not Reportable 08/07/19 23:57 Toxic Granulation Not Reportable 08/07/19 23:57 Toxic Vacuolation Not Reportable 08/07/19 23:57 Dohle Bodies Not Reportable 08/07/19 23:57 Pelger-Huet Anomaly Not Reportable 08/07/19 23:57 Leslye Rods Not Reportable 08/07/19 23:57 Platelet Estimate Consistent w auto 08/07/19 23:57 Clumped Platelets Not Reportable 08/07/19 23:57 Plt Clumps, EDTA Not Reportable 08/07/19 23:57 Large Platelets Not Reportable 08/07/19 23:57 Giant Platelets Not Reportable 08/07/19 23:57 Platelet Satelliting Not Reportable 08/07/19 23:57 Plt Morphology Comment Not Reportable 08/07/19 23:57 RBC Morphology Not Reportable 08/07/19 23:57 Dimorphic RBCs Not Reportable 08/07/19 23:57 Polychromasia Not Reportable 08/07/19 23:57 Hypochromasia Not Reportable 08/07/19 23:57 Poikilocytosis Not Reportable 08/07/19 23:57 Anisocytosis Not Reportable 08/07/19 23:57 Microcytosis Not Reportable 08/07/19 23:57 Macrocytosis Rare 08/07/19 23:57 Spherocytes Not Reportable 08/07/19 23:57 Pappenheimer Bodies Not Reportable 08/07/19 23:57 Sickle Cells Not Reportable 08/07/19 23:57 Target Cells Not Reportable 08/07/19 23:57 Tear Drop Cells Not Reportable 08/07/19 23:57 Ovalocytes Few 08/07/19 23:57 Stomatocytes Few 08/07/19 23:57 Helmet Cells Not Reportable 08/07/19 23:57 [place] Bodies Not Reportable 08/07/19 23:57 [place] Rings Not Reportable 08/07/19 23:57 [place] Cells Not Reportable 08/07/19 23:57 Bite Cells Not Reportable 08/07/19 23:57 Crenated Cell Not Reportable 08/07/19 23:57 Elliptocytes Not Reportable 08/07/19 23:57 Acanthocytes (Spur) Not Reportable 08/07/19 23:57 Rouleaux Not Reportable 08/07/19 23:57 Hemoglobin C Crystals Not Reportable 08/07/19 23:57 Schistocytes Not Reportable 08/07/19 23:57 Malaria parasites Not Reportable 08/07/19 23:57 Say Bodies Not Reportable 08/07/19 23:57 Hem Pathologist Commnt No 08/07/19 23:57 Sodium 142 mmol/L (137-145) 08/09/19 04:23 Potassium 3.7 mmol/L (3.6-5.0) 08/09/19 04:23 Chloride 107.8 mmol/L (98-107) H 08/09/19 04:23 Carbon Dioxide 19 mmol/L (22-30) L 08/09/19 04:23 Anion Gap 19 mmol/L 08/09/19 04:23 BUN 15 mg/dL (7-17) 08/09/19 04:23 Creatinine 1.0 mg/dL (0.7-1.2) 08/09/19 04:23 Estimated GFR > 60 ml/min 08/09/19 04:23 BUN/Creatinine Ratio 15 % 08/09/19 04:23 Glucose 128 mg/dL (65-100) H 08/09/19 04:23 POC Glucose 146 (70-105) H 08/08/19 16:44 Calcium 7.1 mg/dL (8.4-10.2) L D 08/09/19 04:23 Total Bilirubin 0.70 mg/dL (0.1-1.2) 08/09/19 04:23 Direct Bilirubin < 0.2 mg/dL (0-0.2) 08/08/19 00:16 Indirect Bilirubin 0.3 mg/dL 08/08/19 00:16 AST 42 units/L (5-40) H 08/09/19 04:23 ALT 24 units/L (7-56) 08/09/19 04:23 Alkaline Phosphatase 143 units/L (35-129) H 08/09/19 04:23 C-Reactive Protein 7.10 mg/dL (0.00-1.30) H 08/09/19 04:23 Total Protein 6.5 g/dL (6.3-8.2) 08/09/19 04:23 Albumin 3.8 g/dL (3.9-5) L 08/09/19 04:23 Albumin/Globulin Ratio 1.4 % 08/09/19 04:23 Triglycerides 1312 mg/dL (2-149) H 08/08/19 11:29 Cholesterol 141 mg/dL (50-199) 08/08/19 11:29 LDL Cholesterol Direct 36 mg/dL (50-130) L 08/08/19 11:29 HDL Cholesterol 44 mg/dL (40-59) 08/08/19 11:29 Cholesterol/HDL Ratio 3.20 % 08/08/19 11:29 Lipase 550 units/L (13-60) H 08/09/19 04:23 Active Medications - Current Medications Current Medications: Generic Name Dose Route Start Last Admin Trade Name Freq PRN Reason Stop Dose Admin Acetaminophen 650 mg 08/08/19 10:11 08/08/19 20:28 Tylenol PO 650 mg Q4H PRN Administration Pain MILD(1-3)/Fever >100.5/NINO Amlodipine Besylate 10 mg 08/09/19 10:00 08/09/19 09:17 Norvasc PO 10 mg DAILY ARIANE Administration Atorvastatin Calcium 20 mg 08/08/19 22:00 08/08/19 23:24 Lipitor PO 20 mg QHS ARIANE Administration Enoxaparin Sodium 40 mg 08/09/19 10:00 08/09/19 09:16 Lovenox SUB-Q 40 mg QDAY ARIANE Administration Fenofibrate 145 mg 08/09/19 10:00 08/09/19 09:17 Tricor PO 145 mg QDAY ARIANE Administration Sodium Chloride 1,000 mls @ 150 mls/hr 08/08/19 12:00 Nacl 0.9% 1000 Ml IV DIRECT ARIANE Metoprolol Tartrate 100 mg 08/08/19 22:00 08/09/19 09:16 Lopressor PO 100 mg BID ARIANE Administration Morphine Sulfate 2 mg 08/08/19 21:33 08/09/19 09:17 Morphine IV 2 mg Q4H PRN Administration Pain, Moderate (4-6) Ondansetron HCl 4 mg 08/08/19 10:11 Zofran IV Q8H PRN Nausea And Vomiting Sodium Chloride 10 ml 08/08/19 22:00 08/08/19 23:22 Sodium Chloride Flush Syringe 10 Ml IV 10 ml BID ARIANE Administration Sodium Chloride 10 ml 08/08/19 10:11 Sodium Chloride Flush Syringe 10 Ml IV PRN PRN LINE FLUSH
--- NOTE | 2019-08-09 10:02 | Gastroenterology Progress Note ---
Assessment and Plan 1.acute on chronic pancreatitis 2.ETOH abuse -afebrile -WBC, H/H, plt WNL -LFTs trending down. -lipase slightly trending upwards. -triglycerides 1312 -abd CT showed showed acute on chronic pancreatitis (no necrosis or drainable fluid collection), hepatomegaly with hepatic steatosis, and mild biliary duct dilation (no evidence of stone; of note was present on CT in 2017 and underwent MR/MRCP at that time which was negative; patient is s/p CCY) -etiology-most likely 2/2 ETOH +/- hypertriglyceridemia also contributing - clinically improving with abdominal pain improved overnight. No nausea/vomiting. Rec - start trial of clear liquids today. - cont with IVF. - pain control. - continue with PPI -continue fenofibrate -continue to trend labs and supportive care (IVF, pain management, antiemetics, etc) -alcohol cessation discussed with patient-monitor for signs of withdrawal -will follow Subjective Date of service: 08/09/19 Interval history: patient feels somewhat better with abdominal pain improving. No nausea/vomiting overnight. Patient up from bed and brushing teeth. Objective - Constitutional Vitals: Temp Pulse Resp BP Pulse Ox 98.4 F 79 18 168/94 91 08/09/19 05:34 08/09/19 05:34 08/09/19 05:34 08/09/19 09:16 08/09/19 05:34 General appearance: no acute distress - EENT ENT: hearing intact - Neck Neck: supple - Respiratory Respiratory effort: normal - Cardiovascular Rhythm: regular - Gastrointestinal General gastrointestinal: Present: soft, tender, non-distended - Integumentary Integumentary: Present: clear, warm - Neurologic Neurological: alert and oriented x3 - Labs CBC & Chem 7: 08/09/19 04:23 08/09/19 04:23 Labs: Laboratory Results - last 24 hr 08/08/19 08/08/19 08/09/19 11:29 16:44 04:23 WBC RBC Hgb Hct MCV MCH MCHC RDW Plt Count Lymph % (Auto) [place] % (Auto) Eos % (Auto) Baso % (Auto) Lymph # [place] # Eos # Baso # Seg Neutrophils % Seg Neutrophils # Sodium 142 Potassium 3.7 Chloride 107.8 H Carbon Dioxide 19 L Anion Gap 19 BUN 15 Creatinine 1.0 Estimated GFR > 60 BUN/Creatinine Ratio 15 Glucose 128 H POC Glucose 146 H Calcium 7.1 L D Total Bilirubin 0.70 AST 42 H ALT 24 Alkaline Phosphatase 143 H C-Reactive Protein 7.10 H Total Protein 6.5 Albumin 3.8 L Albumin/Globulin Ratio 1.4 Triglycerides 1312 H Cholesterol 141 LDL Cholesterol Direct 36 L HDL Cholesterol 44 Cholesterol/HDL Ratio 3.20 Lipase 550 H 08/09/19 04:23 WBC 8.2 RBC 3.82 Hgb 11.4 Hct 34.4 MCV 90 MCH 30 MCHC 33 RDW 14.2 Plt Count 180 Lymph % (Auto) 25.9 [place] % (Auto) 7.9 H Eos % (Auto) 1.6 Baso % (Auto) 0.7 Lymph # 2.1 [place] # 0.7 Eos # 0.1 Baso # 0.1 Seg Neutrophils % 63.9 Seg Neutrophils # 5.3 Sodium Potassium Chloride Carbon Dioxide Anion Gap BUN Creatinine Estimated GFR BUN/Creatinine Ratio Glucose POC Glucose Calcium Total Bilirubin AST ALT Alkaline Phosphatase C-Reactive Protein Total Protein Albumin Albumin/Globulin Ratio Triglycerides Cholesterol LDL Cholesterol Direct HDL Cholesterol Cholesterol/HDL Ratio Lipase
[2019-08-09] MEDS ORDERED: FLU VACC QUAD 2019-20 (3 YR UP)/PF 60 MCG/0.5 ML SYRINGE IM ONE (12:00)
[2019-08-09] MEDS: ONDANSETRON 4 MG/2 ML INJ IV PRN ×3 (14:59→22:58)
[2019-08-10 06:49] LABS: Hemoglobin 11.3 gm/dl (10.1-14.3); Mean Corpuscular HGB Conc 33 % (30-34); Mean Corpuscular Volume 89 fl (79-97); Platelet Count 144 K/mm3 (140-440); Red Blood Count 3.82 M/mm3 (3.65-5.03); Red Cell Distribution Width 14.1 % (13.2-15.2)
--- NOTE | 2019-08-10 08:31 | Discharge Summary ---
Providers - Providers Date of Admission: 08/08/19 03:44 Date of discharge: 08/10/19 Attending physician: HERMINIO OCONNOR 08/08/19 08:42 Consult to Physician [CONS] Routine Comment: called office/ dee Consulting Provider: ANETTE SANDOVAL Physician Instructions: Reason For Exam: pancreatitis Primary care physician: CHICHI QUINTEROS Hospitalization Reason for admission: pancreatitis Condition: Stable Hospital course: Mrs. Ng is a 54-year-old female with history of hypertension, diabetes mellitus, asthma, pancreatitis, alcohol abuse who presented to the emergency department with abdominal pain, vomiting and diarrhea. She reports that she drinks alcohol on a regular basis. She consumes approximately a pint per day. She reportedly consumed slightly more than that for her birthday 2 days prior to admission. The patient was admitted with diagnosis of acute on chronic pancreatitis. Etiology secondary to EtOH and hypertriglyceridemia. CT showed showed acute on chronic pancreatitis (no necrosis or drainable fluid collection), hepatomegaly with hepatic steatosis, and mild biliary duct dilation, no evidence of stone. The patient was treated with IV fluid hydration, maintained on NPO status and received appropriate pain control. The patient had resolution of symptoms and diet was advanced which she tolerated. Patient was felt to have received maximal hospital benefit and will be discharged home. Dedicated discharge time 34 minutes. Disposition: - TO HOME OR SELFCARE Time spent for discharge: 34 - Discharge Diagnoses (1) ETOH abuse Status: Acute (2) Type 2 diabetes mellitus without complications Status: Acute Core Measure Documentation - Palliative Care Palliative Care/ Comfort Measures: Not Applicable - Core Measures Any of the following diagnoses?: none Exam - Constitutional Vitals: Temp Pulse Resp BP Pulse Ox 98.3 F 81 22 142/90 96 08/10/19 05:07 08/10/19 05:07 08/10/19 05:07 08/10/19 05:07 08/10/19 05:07 General appearance: Present: no acute distress, well-nourished - EENT Eyes: Present: PERRL ENT: hearing intact, clear oral mucosa - Neck Neck: Present: supple, normal ROM - Respiratory Respiratory effort: normal Respiratory: bilateral: CTA - Cardiovascular Heart Sounds: Present: S1 & S2. Absent: rub, click - Extremities Extremities: pulses symmetrical, No edema Peripheral Pulses: within normal limits - Abdominal General gastrointestinal: Present: soft, non-tender, non-distended, normal bowel sounds Female genitourinary: Present: normal - Integumentary Integumentary: Present: clear, warm, dry - Musculoskeletal Musculoskeletal: gait normal, strength equal bilaterally - Psychiatric Psychiatric: appropriate mood/affect, intact judgment & insight - Neurologic Neurologic: CNII-XII intact, moves all extremities Plan Activity: no restrictions Weight Bearing Status: Full Weight Bearing Diet: regular Follow up with: CHITO JOHN MD [Referring] - 3-5 Days Prescriptions: Metoprolol [Lopressor TAB] 1 mg PO DAILY #30 amLODIPine [Norvasc] 10 mg PO DAILY #30 Oxycodone HCl [oxyCODONE] 10 mg PO Q6H PRN #12 tablet PRN Reason: Pain Fenofibrate [Tricor] 145 mg PO QDAY #30 tablet
[2019-08-10] MEDS: amLODIPine 10 MG TAB PO SCH (10:47)
[2019-08-10] MEDS: ENOXAPARIN 40 MG/0.4 ML INJ SUB-Q SCH (10:48)
[2019-08-10] MEDS: FENOFIBRATE 145 MG TAB PO SCH (10:48)
[2019-08-10 10:49] VITALS: BP 147/100
[2019-08-10] MEDS: METOPROLOL TARTRATE 100 MG TAB PO SCH (10:49)
--- NOTE | 2019-08-10 13:32 | Gastroenterology Progress Note ---
Assessment and Plan GI: resolving pancreatitis - advance diet as tolerated - ok to d/c, will sign off, call if needed Subjective Date of service: 08/10/19 Interval history: - reports feeling better, tolerating po Objective - Constitutional Vitals: Temp Pulse Resp BP Pulse Ox 98.3 F 96 H 22 147/100 96 08/10/19 05:07 08/10/19 10:49 08/10/19 05:07 08/10/19 10:49 08/10/19 05:07 General appearance: no acute distress - EENT Eyes: PERRL - Respiratory Respiratory: bilateral: CTA - Cardiovascular Rhythm: regular Heart Sounds: Present: S1 & S2 - Gastrointestinal General gastrointestinal: Present: soft, non-tender, non-distended - Labs CBC & Chem 7: 08/10/19 05:49 08/09/19 04:23 Labs: Laboratory Results - last 24 hr 08/10/19 08/10/19 08/10/19 04:57 05:02 05:49 WBC 8.1 RBC 3.82 Hgb 11.3 Hct 34.0 MCV 89 MCH 30 MCHC 33 RDW 14.1 Plt Count 144 C-Reactive Protein 13.80 H Lipase 388 H
== END 2019-08-10 11:15 | disposition home or self-care (01) | DRG 440 ==
LOC: ED 23:37 → 3A 08-08 03:44
PROVIDERS: ADMIT Internal Medicine; ATTEND Hospitalist
DX: K85.20 Alcohol induced acute pancreatitis without necrosis or infection (principal); E11.8 Type 2 diabetes mellitus with unspecified complications; I10 Essential (primary) hypertension; J45.909 Unspecified asthma, uncomplicated; K86.0 Alcohol-induced chronic pancreatitis; E78.1 Pure hyperglyceridemia; F10.10 Alcohol abuse, uncomplicated; N32.89 Other specified disorders of bladder; K76.0 Fatty (change of) liver, not elsewhere classified; E78.5 Hyperlipidemia, unspecified; F17.200 Nicotine dependence, unspecified, uncomplicated; Z90.49 Acquired absence of other specified parts of digestive tract; Z90.710 Acquired absence of both cervix and uterus; Z82.49 Family history of ischemic heart disease and other diseases of the circulatory system; Z88.2 Allergy status to sulfonamides; Z91.040 Latex allergy status; Z79.899 Other long term (current) drug therapy; Z71.41 Alcohol abuse counseling and surveillance of alcoholic
CPT/HCPCS: 36415; 74177; 80048; 80053; 80061; 80076; 82962; 83690; 85007; 85025; 85027; 86140; 87116; 90471; 90686; 99406; G0378; A9270-GY; G0008; J1650; J2270; J2405; J7030; Q9967

== ENCOUNTER 2020-02-24 20:10 | Inpatient (IN) | payer MEDICARE ==
[2020-02-24 20:41] LABS: Hematocrit 35.4 % (30.3-42.9); Hemoglobin 11.8 gm/dl (10.1-14.3); Mean Corpuscular HGB Conc 33 % (30-34); Mean Corpuscular Volume 89 fl (79-97); Platelet Count 228 K/mm3 (140-440); Red Cell Distribution Width 16.6 % (13.2-15.2)
[2020-02-24 20:52] LABS: INR 1.1 (0.87-1.13)
[2020-02-24 20:59] LABS: Albumin 4.9 g/dL (3.9-5); Calcium 9.2 mg/dL (8.4-10.2)
--- NOTE | 2020-02-24 21:05 | XRay Report ---
CHEST 2 VIEWS INDICATION / CLINICAL INFORMATION: Shortness of breath and anxiety. COMPARISON: None available. FINDINGS: SUPPORT DEVICES: None. HEART / MEDIASTINUM: The heart size and pulmonary vasculature are normal. LUNGS / PLEURA: No significant pulmonary or pleural abnormality. No pneumothorax. ADDITIONAL FINDINGS: No significant additional findings. IMPRESSION: No acute findings. Signer Name: Scooter Toledo MD Signed: 02/24/2020 9:01 PM Workstation Name: [id number]
[2020-02-24] MEDS ORDERED: ONDANSETRON 4 MG/2 ML INJ IV ONE (21:23)
[2020-02-24] MEDS ORDERED: hydrALAZINE 20 MG/1 ML INJ IV ONE (21:23)
[2020-02-24] MEDS ORDERED: MORPHINE 4 MG/1 ML INJ IV ONE (21:23)
--- NOTE | 2020-02-24 21:28 | Emergency Department Report ---
<SHONDA BEJARANO - Last Filed: 02/24/20 21:24> ED Alcohol HPI - General Chief Complaint: Dyspnea/Respdistress Stated Complaint: DIFFICULTY IN BREATHING, ANXIETY Time Seen by Provider: 02/24/20 21:15 Source: patient, EMS Mode of arrival: Wheelchair Limitations: No Limitations - History of Present Illness Initial Comments: Patient is 54-year-old female with history of hypertension, diabetes and chronic alcohol abuse. Patient presented to the ER complaining of an anxiety for the last month. Patient stated that she is worried about coronavirus and since this started she started drinking alcohol daily. Patient stated that she drink half pints of gin. Patient is also complaining of epigastric abdominal pain that radiated to her back. Patient described pain as sharp, 7 out of 10. Patient is also complaining of nausea and vomiting. Patient denied hematemesis, hematochezia or melena. Patient also denied any fever, chills, chest pain or shortness of breath. 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 Use: Yes Previous Visits for Alcohol Intoxication?: Yes Recent Trauma: No Treatments Prior to Arrival: none - Related Data Home Medications Medication Instructions Recorded Confirmed Last Taken metFORMIN [Glucophage] 500 mg PO DAILY 10/12/17 12/07/19 08/07/19 10:00 500 MG Metoprolol Xl 100 mg PO DAILY 12/06/19 12/07/19 Unknown Pantoprazole Sodium [Protonix] 40 mg PO DAILY 12/06/19 12/07/19 Unknown glipiZIDE 5 mg PO DAILY 12/06/19 12/07/19 Unknown oxyCODONE 10 mg PO BID PRN 12/06/19 12/07/19 Unknown Cholecalciferol (Vitamin D3) 50,000 units PO 1XW 12/07/19 12/07/19 Unknown Citalopram [Celexa] 20 mg PO DAILY 12/07/19 12/07/19 Unknown Colchicine 0.6 mg PO BID 12/07/19 12/07/19 Unknown Irbesartan 150 mg PO DAILY 12/07/19 12/07/19 Unknown Omeprazole 40 mg PO DAILY 12/07/19 12/07/19 Unknown Pepcid 20 mg PO DAILY 12/07/19 12/07/19 Unknown Previous Rx's Medication Instructions Recorded Last Taken Type Fenofibrate [Tricor] 145 mg PO QDAY #30 tablet 08/10/19 Unknown Rx amLODIPine 10 mg PO DAILY #30 08/10/19 Unknown Rx Allergies Allergy/AdvReac Type Severity Reaction Status Date / Time latex Allergy Hives Verified 10/12/17 14:15 Sulfa (Sulfonamide Allergy Swelling Verified 10/12/17 14:15 Antibiotics) ED Review of Systems Comment: All other systems reviewed and negative Constitutional: denies: chills, fever Respiratory: denies: cough, orthopnea, shortness of breath, SOB with exertion, SOB at rest Cardiovascular: denies: chest pain Gastrointestinal: abdominal pain, nausea, vomiting. denies: diarrhea, constipation, hematemesis, melena, hematochezia Musculoskeletal: denies: back pain Neurological: denies: headache, weakness, numbness, paresthesias, confusion, abnormal gait Psychiatric: depression. denies: anxiety, auditory hallucinations, visual hallucinations, homicidal thoughts, suicidal thoughts ED Past Medical Hx - Past Medical History Previous Medical History?: Yes Hx Hypertension: Yes Hx Congestive Heart Failure: No Hx Diabetes: Yes Hx Renal Disease: No Hx Arthritis: No Hx Seizures: No Hx Asthma: Yes Hx COPD: No Hx Dementia: No Additional medical history: PANCREATITIS - Surgical History Past Surgical History?: Yes Hx Cholecystectomy: Yes Hx Appendectomy: No Additional Surgical History: BREAST LUMP REMOVALS / HYSTERECTOMY - Social History Smoking Status: Current Every Day Smoker Substance Use Type: Alcohol - Medications Home Medications: Home Medications Medication Instructions Recorded Confirmed Last Taken Type metFORMIN [Glucophage] 500 mg PO DAILY 10/12/17 12/07/19 08/07/19 10:00 History 500 MG Fenofibrate [Tricor] 145 mg PO QDAY #30 tablet 08/10/19 12/07/19 Unknown Rx amLODIPine 10 mg PO DAILY #30 08/10/19 12/07/19 Unknown Rx Metoprolol Xl 100 mg PO DAILY 12/06/19 12/07/19 Unknown History Pantoprazole Sodium [Protonix] 40 mg PO DAILY 12/06/19 12/07/19 Unknown History glipiZIDE 5 mg PO DAILY 12/06/19 12/07/19 Unknown History oxyCODONE 10 mg PO BID PRN 12/06/19 12/07/19 Unknown History Cholecalciferol (Vitamin D3) 50,000 units PO 1XW 12/07/19 12/07/19 Unknown History Citalopram [Celexa] 20 mg PO DAILY 12/07/19 12/07/19 Unknown History Colchicine 0.6 mg PO BID 12/07/19 12/07/19 Unknown History Irbesartan 150 mg PO DAILY 12/07/19 12/07/19 Unknown History Omeprazole 40 mg PO DAILY 12/07/19 12/07/19 Unknown History Pepcid 20 mg PO DAILY 12/07/19 12/07/19 Unknown History ED Physical Exam - General Limitations: No Limitations General appearance: alert, in no apparent distress, anxious - Head Head exam: Present: atraumatic, normocephalic, normal inspection - Eye Eye exam: Present: normal appearance, PERRL - ENT ENT exam: Present: normal exam, normal orophraynx, mucous membranes moist - Neck Neck exam: Present: normal inspection, full ROM. Absent: tenderness, meningismus, lymphadenopathy, thyromegaly - Respiratory Respiratory exam: Present: normal lung sounds bilaterally. Absent: respiratory distress, wheezes, rales, rhonchi, stridor, chest wall tenderness, accessory muscle use, decreased breath sounds, prolonged expiratory - Cardiovascular Cardiovascular Exam: Present: regular rate, normal rhythm, normal heart sounds - GI/Abdominal GI/Abdominal exam: Present: soft, normal bowel sounds. Absent: distended, tenderness, guarding, rebound, rigid, organomegaly, mass, bruit, pulsatile mass, hernia - Extremities Exam Extremities exam: Present: normal inspection, full ROM, normal capillary refill. Absent: pedal edema, calf tenderness - Back Exam Back exam: Present: normal inspection, full ROM. Absent: CVA tenderness (R), CVA tenderness (L) - Neurological Exam Neurological exam: Present: alert, oriented X3, CN II-XII intact, normal gait, reflexes normal. Absent: motor sensory deficit - Psychiatric Psychiatric exam: Present: depressed, anxious. Absent: agitated, flat affect, manic, homicidal ideation, suicidal ideation - Skin Skin exam: Present: warm, intact, normal color ED Medical Decision Making - Lab Data Result diagrams: 02/24/20 20:31 02/24/20 20:31 ED Disposition Clinical Impression: Acute abdominal pain, ETOH abuse Acute pancreatitis Qualifiers: Pancreatitis type: unspecified pancreatitis type Acute pancreatitis complication: unspecified Qualified Code(s): K85.90 - Acute pancreatitis without necrosis or infection, unspecified Acute renal failure (ARF) Qualifiers: Acute renal failure type: unspecified Qualified Code(s): N17.9 - Acute kidney failure, unspecified Hypertension Qualifiers: Hypertension type: essential hypertension Qualified Code(s): I10 - Essential (primary) hypertension Disposition: OP ADMIT IP TO THIS HOSP Condition: Fair Instructions: Hypertension (ED) Referrals: CHICHI QUINTEROS MD [Primary Care Provider] - 3-5 Days <JUVE SARMIENTO - Last Filed: 02/25/20 12:36> ED Review of Systems ROS: Stated complaint: DIFFICULTY IN BREATHING, ANXIETY Other details as noted in HPI ED Physical Exam - Other Other exam information: At the time of my examination the patient has generalized abdominal tenderness to palpation. There is no distention or rigidity. No guarding. ED Course Vital Signs 02/24/20 02/24/20 02/24/20 21:14 21:30 22:00 Temperature 98.3 F Pulse Rate 84 Respiratory 19 16 16 Rate Blood Pressure Blood Pressure 164/101 [Left] O2 Sat by Pulse 98 Oximetry 02/24/20 02/25/20 02/25/20 23:29 00:30 02:30 Temperature 98.3 F Pulse Rate 89 Respiratory 16 16 Rate Blood Pressure 138/87 157/105 Blood Pressure 131/76 [Left] O2 Sat by Pulse 98 94 99 Oximetry 02/25/20 02/25/20 02/25/20 03:00 04:56 07:00 Temperature 98.2 F Pulse Rate 92 H Respiratory 16 16 Rate Blood Pressure 161/92 Blood Pressure 141/81 [Left] O2 Sat by Pulse 100 Oximetry 02/25/20 02/25/20 02/25/20 08:00 10:14 10:20 Temperature 98.9 F Pulse Rate 85 Respiratory 20 18 Rate Blood Pressure 182/113 Blood Pressure 170/105 [Left] O2 Sat by Pulse 93 95 Oximetry - Consultations Consultation #1: I had spoken to Dr. Kumar, gastroenterology, regarding the patient's elevated LFTs and CT finding of possible acute on chronic pancreatitis. Dr. Kumar felt this was all consistent with alcoholic hepatitis and some possible pancreatitis but the patient could be discharged home as long as she is able to tolerate oral liquids and does not appear unstable. 02/25/20 12:32 ED Medical Decision Making - Lab Data Result diagrams: 02/24/20 20:31 02/25/20 11:24 - Radiology Data Radiology results: report reviewed CT ABDOMEN AND PELVIS WITHOUT CONTRAST HISTORY: MAIN: Abdominal pain mid abd pain x 4 weeks. COMPARISON: CT abdomen/pelvis from 08/08/2019 TECHNIQUE: CT i mages of the abdomen and pelvis were obtained without administration of intravenous contrast. All CT scans at this location are performed using CT dose reduction for ALARA by means of automated exposure control. FINDINGS: Lungs/bones: There is minimal bibasilar atelectasis. Degenerative changes are present in the spine and pelvis with no acute osseous abnormality identified. Abdomen/pelvis: There is hepatic steatosis and hepatomegaly. The gallbladder is surgically absent. Changes of chronic pancreatitis are again noted with extensive calcifications and pancreatic/extrahepatic biliary ductal dilatation. There is faint haziness about the pancreatic head.. The spleen, kidneys, and proximal GI tract appear unremarkable. Mild bilateral adrenal thickening again noted. Urinary bladder is unremarkable. Uterus is surgically absent. No pelvic free fluid or acute colonic abnormality identified. The appendix is normal. IMPRESSION: 1. Faint haziness about the pancreatic head raises the possibility of acute on chronic pancreatitis. Otherwise unchanged exam. - Medical Decision Making This patient originally came into the emergency department last night and was seen by my colleague and the patient had alcohol intoxication with a blood alcohol level of 0.31. Patient also appeared to have elevated LFTs and elevated lipase level. She had low magnesium and some renal insufficiency. The patient did receive a liter of IV fluid via banana bag last night. CT scan of the abdomen and pelvis showed some haziness around the head of the pancreas concerning for possible acute on chronic pancreatitis. Given these labs, CT findings, and patient's presentation, I spoke with gastroenterology. As per the consultation section, the patient appeared okay for discharge with outpatient follow-up as long as the patient is able to keep down fluids. However, given the patient's bicarb level of 12 and the renal insufficiency, I wanted to recheck her metabolic panel after the patient had received to the banana bag and/or IV fluid resuscitation. The repeat BMP shows worsening kidney function with a GFR of 43. Patient has received about 8 mg of morphine and still complains of generalized abdominal pain. For these reasons the patient will be admitted to the hospital for further evaluation and treatment and was accepted for admission by the hospitalist, Dr. Quinteros. Critical Care Time: No Critical care attestation.: If time is entered above; I have spent that time in minutes in the direct care of this critically ill patient, excluding procedure time. ED Disposition Is pt being admited?: Yes Time of Disposition: 12:26
[2020-02-24] MEDS ORDERED: THIAMINE 100 MG, FOLIC ACID 1 MG, MULTIPLE VITAMIN INJ, ADULT 10 ML in SODIUM CHLORIDE ... IV ONE (22:00)
[2020-02-25] MEDS ORDERED: MORPHINE 2 MG/1 ML INJ IV ONE ×2 (00:25→10:09)
[2020-02-25] MEDS ORDERED: MORPHINE 2 MG/1 ML INJ ONE (00:25)
[2020-02-25 02:22] LABS: Bilirubin,Urine NEG (Negative); Blood,Urine NEG (Negative); Color,Urine Yellow (Yellow); Urobilinogen,Urine < 2.0 mg/dL (<2.0); WBC,Urine < 1.0 /HPF (0.0-6.0)
[2020-02-25 02:29] LABS: Amphetamine Screen,Urine PRESUMPTIVE NEGATIVE; Benzodiazepines Screen,Urine PRESUMPTIVE NEGATIVE; Cannabinoid Screen,Urine PRESUMPTIVE NEGATIVE; Cocaine Screen,Urine PRESUMPTIVE NEGATIVE; Methadone Screen,Urine PRESUMPTIVE NEGATIVE; Opiate Screen,Urine PRESUMPTIVE NEGATIVE
--- NOTE | 2020-02-25 10:00 | Cat Scan Report ---
CT ABDOMEN AND PELVIS WITHOUT CONTRAST HISTORY: MAIN: Abdominal pain mid abd pain x 4 weeks. COMPARISON: CT abdomen/pelvis from 08/08/2019 TECHNIQUE: CT images of the abdomen and pelvis were obtained without administration of intravenous co ntrast. All CT scans at this location are performed using CT dose reduction for ALARA by means of au tomated exposure control. FINDINGS: Lungs/bones: There is minimal bibasilar atelectasis. Degenerative changes are present in the spine a nd pelvis with no acute osseous abnormality identified. Abdomen/pelvis: There is hepatic steatosis and hepatomegaly. The gallbladder is surgically absent. Changes of chronic pancreatitis are again noted with extensive calcifications and pancreatic/extrahep atic biliary ductal dilatation. There is faint haziness about the pancreatic head.. The spleen, kidneys, and proximal GI tract appear unremarkable. Mild bilateral adrenal thickening aga in noted. Urinary bladder is unremarkable. Uterus is surgically absent. No pelvic free fluid or acute colonic a bnormality identified. The appendix is normal. IMPRESSION: 1. Faint haziness about the pancreatic head raises the possibility of acute on chronic pancreatitis. Otherwise unchanged exam. Signer Name: Rigoberto Lomas MD Signed: 02/25/2020 9:56 AM Workstation Name: [id number]
[2020-02-25] MEDS ORDERED: PIPERACIL/TAZOBACTA 4.5/NS 100 4.5 GM/100 ML VIAL IV ONE (10:09)
[2020-02-25] MEDS ORDERED: MORPHINE 4 MG/1 ML INJ IV ONE (10:09)
[2020-02-25] MEDS ORDERED: MAGNESIUM SULFATE 1 GM in SODIUM CHLORIDE 0.9% 50 ML IV ONE (11:00)
[2020-02-25] MEDS ORDERED: CLOPIDOGREL 75 MG TAB ONE (11:36)
[2020-02-25] MEDS ORDERED: PANTOPRAZOLE 40 MG TAB PO ONE (11:37)
[2020-02-25 12:16] LABS: Calcium 8.7 mg/dL (8.4-10.2)
[2020-02-25] MEDS ORDERED: SODIUM CHLORIDE 0.9% 1000 ML 1,000 ML IV ONE (12:36)
[2020-02-25] MEDS ORDERED: PROMETHAZINE 25 MG TAB PO PRN (16:29)
[2020-02-25] MEDS ORDERED: HYDROmorphone 1 MG/1 ML INJ IV PRN (16:30)
[2020-02-25] MEDS ORDERED: ACETAMINOPHEN 325 MG TAB PO PRN (16:30)
[2020-02-25] MEDS ORDERED: ONDANSETRON 4 MG/2 ML INJ IV PRN (16:30)
[2020-02-25] MEDS ORDERED: hydrALAZINE 20 MG/1 ML INJ IV PRN (16:36)
[2020-02-25] MEDS ORDERED: LORazepam 2 MG/ML VIAL IV PRN ×2 (16:39)
[2020-02-25] MEDS ORDERED: oxyCODONE /ACETAMINOPHEN 5-325MG TAB ONE (16:57)
[2020-02-25] MEDS ORDERED: VALSARTAN 160MG TAB ONE (16:58)
[2020-02-25] MEDS ORDERED: carvediloL 6.25 MG TAB ONE (16:58)
[2020-02-25] MEDS ORDERED: hydrALAZINE 20 MG/1 ML INJ ONE (16:59)
[2020-02-25] MEDS: VALSARTAN 160MG TAB PO SCH (17:02)
[2020-02-25] MEDS: carvediloL 12.5 MG TAB PO SCH (17:02)
[2020-02-25] MEDS: oxyCODONE /ACETAMINOPHEN 5-325MG TAB PO PRN ×2 (17:03→21:50)
[2020-02-25] MEDS ORDERED: ONDANSETRON 4 MG/2 ML INJ ONE (17:08)
[2020-02-25 17:45] LABS: Calcium 8.5 mg/dL (8.4-10.2)
[2020-02-25] MEDS: allopurinoL 100 MG TAB PO SCH (18:14)
[2020-02-25] MEDS: SODIUM CHLORIDE 0.9% 1000 ML 1,000 ML IV SCH (18:15)
[2020-02-25] MEDS: busPIRone 5 MG TAB PO SCH (21:28)
[2020-02-25] MEDS: PANTOPRAZOLE 40 MG INJ IV SCH (21:29)
[2020-02-25] MEDS: INSULIN LISPRO 100 UNIT/ML SUB-Q SCH (22:00)
[2020-02-25] MEDS ORDERED: BUSPIRONE HCL 15 MG PO SCH (22:00)
[2020-02-26] MEDS: oxyCODONE /ACETAMINOPHEN 5-325MG TAB PO PRN ×4 (03:06→21:19)
[2020-02-26 04:42] LABS: Basophils # (Auto) 0.1 K/mm3 (0.0-0.1); Basophils % (Auto) 1.4 % (0.0-1.8); Eosinophils # (Auto) 0.2 K/mm3 (0.0-0.4); Eosinophils % (Auto) 4.1 % (0.0-4.3); Hematocrit 29.1 % (30.3-42.9); Hemoglobin 9.5 gm/dl (10.1-14.3); Lymphocytes # (Auto) 2.1 K/mm3 (1.2-5.4); Lymphocytes % (Auto) 39.9 % (13.4-35.0); Mean Corpuscular HGB Conc 33 % (30-34); Mean Corpuscular Volume 90 fl (79-97); Monocytes # (Auto) 0.3 K/mm3 (0.0-0.8); Monocytes % (Auto) 4.8 % (0.0-7.3); Platelet Count 125 K/mm3 (140-440); Red Blood Count 3.25 M/mm3 (3.65-5.03)
[2020-02-26 05:02] LABS: Alanine Aminotransferase 68 units/L (7-56); Albumin 3.9 g/dL (3.9-5); BUN/Creatinine Ratio 18; Blood Urea Nitrogen 20 mg/dL (7-17); Calcium 8.2 mg/dL (8.4-10.2); Hemolysis Index 2
[2020-02-26] MEDS: VALSARTAN 160MG TAB PO SCH ×2 (05:58→17:11)
[2020-02-26] MEDS: LEVOTHYROXINE 50 MCG TAB PO SCH (05:59)
[2020-02-26] MEDS: carvediloL 12.5 MG TAB PO SCH ×2 (05:59→17:11)
--- NOTE | 2020-02-26 08:33 | History and Physical Report ---
History of Present Illness Date of examination: 02/25/20 Date of admission: 02/25/20 12:26 Chief complaint: Severe EtOH dependence History of present illness: 54-year-old female with history of hypertension, gout, depression and EtOH dependence comes in for anxiety and alcohol dependence. Patient states that she drinks half a pint of gin every day. Patient is complaining of epigastric pain radiating to the back. Pain is about 7 on a scale of 1-10 sharp in nature. Associated with nausea and vomiting. Denies any hematemesis. No fever or chills. Patient is worried about exposure to coronavirus. Past Medical History Previous Medical History?: Yes Hypertension: Yes Diabetes: Yes Additional medical history: PANCREATITIS - Surgical History Past Surgical History?: Yes Hx Cholecystectomy: Yes Additional Surgical History: BREAST LUMP REMOVALS / HYSTERECTOMY Social History Smoking Status: Current Every Day Smoker Substance Use Type: Alcohol on regular basis in heavy amount. Half a pint of gin every day. Family history Hypertension - Medications Home Medications: Home Medications Medication Instructions Recorded Confirmed Last Taken Type metFORMIN [Glucophage] 500 mg PO DAILY 10/12/17 12/07/19 08/07/19 10:00 History 500 MG Fenofibrate [Tricor] 145 mg PO QDAY #30 tablet 08/10/19 12/07/19 Unknown Rx amLODIPine 10 mg PO DAILY #30 08/10/19 12/07/19 Unknown Rx Metoprolol Xl 100 mg PO DAILY 12/06/19 12/07/19 Unknown History Pantoprazole Sodium [Protonix] 40 mg PO DAILY 12/06/19 12/07/19 Unknown History glipiZIDE 5 mg PO DAILY 12/06/19 12/07/19 Unknown History oxyCODONE 10 mg PO BID PRN 12/06/19 12/07/19 Unknown History Cholecalciferol (Vitamin D3) 50,000 units PO 1XW 12/07/19 12/07/19 Unknown History Citalopram [Celexa] 20 mg PO DAILY 12/07/19 12/07/19 Unknown History Colchicine 0.6 mg PO BID 12/07/19 12/07/19 Unknown History Irbesartan 150 mg PO DAILY 12/07/19 12/07/19 Unknown History Omeprazole 40 mg PO DAILY 12/07/19 12/07/19 Unknown History Pepcid 20 mg PO DAILY 12/07/19 12/07/19 Unknown History Review of Systems ROS Constitutional no weight loss or weight gain no fever or chills HEENT no sore throat no post nasal drip no diplopia Neck no neck stiffness no lymph gland enlargement Chest and lungs no shortness of breath cough or wheezing CVS no chest pain no diaphoresis no palpitations GI epigastric pain nausea and vomiting present. Pain is about 7 on a scale of 1-10. Genitourinary system no dysuria no flank pain Musculoskeletal system no muscle pains no joint pains [employer] no syncope no seizures Skin no rash no itching Psychiatric no depression no homicidal or suicidal tendencies Hematologic no lymphedema or bruising Endocrine no polydipsia no polyuria no cold intolerance no heat intolerance Medications and Allergies Allergies Allergy/AdvReac Type Severity Reaction Status Date / Time latex Allergy Hives Verified 10/12/17 14:15 Sulfa (Sulfonamide Allergy Swelling Verified 10/12/17 14:15 Antibiotics) Home Medications Medication Instructions Recorded Confirmed Last Taken Type Pepcid 20 mg PO DAILY 12/07/19 02/25/20 Unknown History AtorvaSTATin [Lipitor] 20 mg PO QHS 02/25/20 02/25/20 Unknown History Buspirone HCl [busPIRone] 15 mg PO BID 02/25/20 02/25/20 Unknown History Colchicine 0.6 mg PO BID 02/25/20 02/25/20 Unknown History Levothyroxine [Synthroid] 50 mcg PO QAM 02/25/20 02/25/20 Unknown History Oxycodone HCl [oxyCODONE] 10 mg PO BID PRN 02/25/20 02/25/20 Unknown History Pantoprazole [Protonix TAB] 40 mg PO DAILY 02/25/20 02/25/20 Unknown History Promethazine [Phenergan] 25 mg PO Q12H PRN 02/25/20 02/25/20 Unknown History allopurinoL [Zyloprim] 100 mg PO DAILY 02/25/20 02/25/20 Unknown History glipiZIDE [Glucotrol] 5 mg PO DAILY 02/25/20 02/25/20 Unknown History metFORMIN [Glucophage] 500 mg PO DAILY 02/25/20 02/25/20 Unknown History Active Meds: Active Medications Acetaminophen (Tylenol) 650 mg PO Q4H PRN PRN Reason: Pain MILD(1-3)/Fever >100.5/NINO Allopurinol (Zyloprim) 100 mg PO DAILY [facility] Last Admin: 02/25/20 18:14 Dose: 100 mg Documented by: Atorvastatin Calcium (Lipitor) 20 mg PO QHS [facility] Last Admin: 02/25/20 21:28 Dose: 20 mg Documented by: Buspirone HCl (Buspar) 15 mg PO BID [facility] Last Admin: 02/25/20 21:28 Dose: 15 mg Documented by: Carvedilol (Coreg) 12.5 mg PO Q12H [facility] Last Admin: 02/26/20 05:59 Dose: 12.5 mg Documented by: Hydralazine HCl (Apresoline) 10 mg IV Q3H PRN PRN Reason: HTN >160/100 Last Admin: 02/25/20 17:02 Dose: 10 mg Documented by: Hydromorphone HCl (Dilaudid) 1 mg IV Q3H PRN PRN Reason: Pain , Severe (7-10) Sodium Chloride (Nacl 0.9% 1000 Ml) 1,000 mls @ 125 mls/hr IV DIRECT [facility] Last Admin: 02/25/20 18:15 Dose: 125 mls/hr Documented by: Insulin Human Lispro (Humalog) 0 unit SUB-Q ACHS [facility]; Protocol Last Admin: 02/25/20 22:00 Dose: Not Given Documented by: Levothyroxine Sodium (Synthroid) 50 mcg PO DAILY@0600 [facility] Last Admin: 02/26/20 05:59 Dose: 50 mcg Documented by: Lorazepam (Ativan) 2 mg IV Q1H PRN PRN Reason: CIWA-Ar 8-15 Lorazepam (Ativan) 4 mg IV Q1H PRN PRN Reason: CIWA-Ar 16-25 Ondansetron HCl (Zofran) 4 mg IV Q3H PRN PRN Reason: Nausea And Vomiting Oxycodone/Acetaminophen (Percocet 5/325) 1 tab PO Q6H PRN PRN Reason: Pain, Moderate (4-6) Last Admin: 02/26/20 03:06 Dose: 1 tab Documented by: Pantoprazole Sodium (Protonix) 40 mg IV BID [facility] Last Admin: 02/25/20 21:29 Dose: 40 mg Documented by: Promethazine HCl (Phenergan) 25 mg PO Q12H PRN PRN Reason: Nausea Sodium Chloride (Sodium Chloride Flush Syringe 10 Ml) 10 ml IV BID [facility] Last Admin: 02/25/20 21:29 Dose: 10 ml Documented by: Sodium Chloride (Sodium Chloride Flush Syringe 10 Ml) 10 ml IV PRN PRN PRN Reason: LINE FLUSH Valsartan (Diovan) 160 mg PO Q12H [facility] Last Admin: 02/26/20 05:58 Dose: 160 mg Documented by: Exam - Constitutional Vitals: Temp Pulse Resp BP Pulse Ox 98.9 F 83 20 142/91 96 02/26/20 07:49 02/26/20 07:49 02/26/20 07:49 02/26/20 07:49 02/26/20 07:49 General appearance: Present: no acute distress, well-nourished - EENT Eyes: Present: PERRL ENT: hearing intact, clear oral mucosa - Neck Neck: Present: supple, normal ROM - Respiratory Respiratory effort: normal Respiratory: bilateral: CTA - Cardiovascular Heart rate: 98 Rhythm: regular Heart Sounds: Present: S1 & S2. Absent: rub, click - Extremities Extremities: no ischemia, pulses intact, pulses symmetrical, No edema Peripheral Pulses: within normal limits - Abdominal General gastrointestinal: Present: soft, tender, non-distended, normal bowel sounds Localized gastrointestinal: tender: epigastric periumbilical (Diffuse) Female genitourinary: Present: normal - Integumentary Integumentary: Present: clear, warm, dry - Musculoskeletal Musculoskeletal: gait normal, strength equal bilaterally - Psychiatric Psychiatric: appropriate mood/affect, intact judgment & insight - Neurologic Neurologic: CNII-XII intact, moves all extremities - Allied Health Allied health notes reviewed: nursing, case management Results - Labs CBC & Chem 7: 02/26/20 04:07 02/26/20 04:07 Labs: Laboratory Last Values WBC 5.4 K/mm3 (4.5-11.0) 02/26/20 04:07 RBC 3.25 M/mm3 (3.65-5.03) L 02/26/20 04:07 Hgb 9.5 gm/dl (10.1-14.3) L 02/26/20 04:07 Hct 29.1 % (30.3-42.9) L D 02/26/20 04:07 MCV 90 fl (79-97) 02/26/20 04:07 MCH 29 pg (28-32) 02/26/20 04:07 MCHC 33 % (30-34) 02/26/20 04:07 RDW 17.0 % (13.2-15.2) H 02/26/20 04:07 Plt Count 125 K/mm3 (140-440) L 02/26/20 04:07 Lymph % (Auto) 39.9 % (13.4-35.0) H 02/26/20 04:07 [place] % (Auto) 4.8 % (0.0-7.3) 02/26/20 04:07 Eos % (Auto) 4.1 % (0.0-4.3) 02/26/20 04:07 Baso % (Auto) 1.4 % (0.0-1.8) 02/26/20 04:07 Lymph # 2.1 K/mm3 (1.2-5.4) 02/26/20 04:07 [place] # 0.3 K/mm3 (0.0-0.8) 02/26/20 04:07 Eos # 0.2 K/mm3 (0.0-0.4) 02/26/20 04:07 Baso # 0.1 K/mm3 (0.0-0.1) 02/26/20 04:07 Seg Neutrophils % 49.8 % (40.0-70.0) 02/26/20 04:07 Seg Neutrophils # 2.7 K/mm3 (1.8-7.7) 02/26/20 04:07 PT 14.3 Sec. (12.2-14.9) 02/24/20 20:31 INR 1.10 (0.87-1.13) 02/24/20 20:31 Sodium 138 mmol/L (137-145) 02/26/20 04:07 Potassium 3.8 mmol/L (3.6-5.0) 02/26/20 04:07 Chloride 106.5 mmol/L (98-107) 02/26/20 04:07 Carbon Dioxide 17 mmol/L (22-30) L 02/26/20 04:07 Anion Gap 18 mmol/L 02/26/20 04:07 BUN 20 mg/dL (7-17) H 02/26/20 04:07 Creatinine 1.1 mg/dL (0.7-1.2) 02/26/20 04:07 Estimated GFR > 60 ml/min 02/26/20 04:07 BUN/Creatinine Ratio 18 % 02/26/20 04:07 Glucose 166 mg/dL (65-100) H 02/26/20 04:07 POC Glucose 121 (70-105) H 02/25/20 22:59 Hemoglobin A1c 5.2 % (4-6) 02/25/20 17:10 Calcium 8.2 mg/dL (8.4-10.2) L 02/26/20 04:07 Phosphorus 3.50 mg/dL (2.5-4.5) 02/25/20 17:10 Magnesium 1.40 mg/dL (1.7-2.3) L 02/24/20 20:31 Total Bilirubin 0.60 mg/dL (0.1-1.2) 02/26/20 04:07 AST 111 units/L (5-40) H 02/26/20 04:07 ALT 68 units/L (7-56) H 02/26/20 04:07 Alkaline Phosphatase 226 units/L (35-129) H 02/26/20 04:07 Ammonia 36.0 umol/L (25-60) 02/25/20 17:10 Total Creatine Kinase 92 units/L (30-135) 02/24/20 20:31 Total Protein 6.2 g/dL (6.3-8.2) L D 02/26/20 04:07 Albumin 3.9 g/dL (3.9-5) 02/26/20 04:07 Albumin/Globulin Ratio 1.7 % 02/26/20 04:07 Amylase 164 units/L (27-131) H 02/25/20 17:10 Lipase 224 units/L (13-60) H 02/24/20 20:31 Urine Color Yellow (Yellow) 02/25/20 01:52 Urine Turbidity Clear (Clear) 02/25/20 01:52 Urine pH 6.0 (5.0-7.0) 02/25/20 01:52 Ur Specific [place] 1.006 (1.003-1.030) 02/25/20 01:52 Urine Protein 30 mg/dl mg/dL (Negative) 02/25/20 01:52 Urine Glucose (UA) Neg mg/dL (Negative) 02/25/20 01:52 Urine Ketones Neg mg/dL (Negative) 02/25/20 01:52 Urine Blood Neg (Negative) 02/25/20 01:52 Urine Nitrite Neg (Negative) 02/25/20 01:52 Urine Bilirubin Neg (Negative) 02/25/20 01:52 Urine Urobilinogen < 2.0 mg/dL (<2.0) 02/25/20 01:52 Ur Leukocyte Esterase Neg (Negative) 02/25/20 01:52 Urine WBC (Auto) < 1.0 /HPF (0.0-6.0) 02/25/20 01:52 Urine RBC (Auto) 2.0 /HPF (0.0-6.0) 02/25/20 01:52 U Epithel Cells (Auto) 1.0 /HPF (0-13.0) 02/25/20 01:52 Salicylates < 0.3 mg/dL (2.8-20.0) L 02/24/20 20:31 Urine Opiates Screen Presumptive negative 02/25/20 01:52 Urine Methadone Screen Presumptive negative 02/25/20 01:52 Acetaminophen < 5.0 ug/mL (10.0-30.0) L 02/24/20 20:31 Ur Barbiturates Screen Presumptive negative 02/25/20 01:52 Ur Phencyclidine Scrn Presumptive negative 02/25/20 01:52 Ur Amphetamines Screen Presumptive negative 02/25/20 01:52 U Benzodiazepines Scrn Presumptive negative 02/25/20 01:52 Urine Cocaine Screen Presumptive negative 02/25/20 01:52 U Marijuana (THC) Screen Presumptive negative 02/25/20 01:52 Drugs of Abuse Note Disclamer 02/25/20 01:52 Plasma/Serum Alcohol < 0.01 % (0-0.07) 02/25/20 09:56 - Imaging and Cardiology Chest x-ray: report reviewed (No acute findings) CT scan - abdomen: report reviewed Imaging and Cardiology: CT abdomen IMPRESSION: 1. Faint haziness about the pancreatic head raises the possibility of acute on chronic pancreatitis. Otherwise unchanged exam. Johnson/IV: Voiding Method Toilet IV Catheter Type [Right Hand] INT / Saline Lock Assessment and Plan Advance Directives: Yes (Full code) VTE prophylaxis?: Chemical Plan of care discussed with patient/family: Yes - Patient Problems (1) Acute gastritis without bleeding Current Visit: Yes Status: Acute Qualifiers: Gastritis type: alcoholic Qualified Code(s): K29.20 - Alcoholic gastritis without bleeding Plan to address problem: Patient initiated on IV Protonix IV fluids GI consult if necessary (2) Hyponatremia Current Visit: Yes Status: Acute Plan to address problem: Should resolve with IV fluids normal saline (3) Acute pancreatitis Current Visit: Yes Status: Acute Qualifiers: Pancreatitis type: unspecified pancreatitis type Acute pancreatitis complication: unspecified Qualified Code(s): K85.90 - Acute pancreatitis without necrosis or infection, unspecified Plan to address problem: Mild Clear liquids for now (4) Transaminitis Current Visit: Yes Status: Acute Plan to address problem: Secondary to EtOH Hepatitis profile ordered Needs to stop drinking alcohol Patient to be counseled by primary team (5) EtOH dependence Current Visit: Yes Status: Acute Qualifiers: Substance use status: uncomplicated Qualified Code(s): F10.20 - Alcohol dependence, uncomplicated Plan to address problem: Initiated on CIWA protocol (6) Hypertension Current Visit: Yes Status: Chronic Qualifiers: Hypertension type: essential hypertension Qualified Code(s): I10 - Essential (primary) hypertension Plan to address problem: Continue her antihypertensives (7) Type 2 diabetes mellitus Current Visit: Yes Status: Chronic Qualifiers: Diabetes mellitus buttermaker continuous churn insulin use: without buttermaker continuous churn use Plan to address problem: Coverage for now Resume metformin after gastritis is resolved (8) Acute renal failure (ARF) Current Visit: Yes Status: Acute Qualifiers: Acute renal failure type: unspecified Qualified Code(s): N17.9 - Acute kidney failure, unspecified Plan to address problem: ADDISON consistent with vasomotor nephropathy IV fluids for now (9) DVT prophylaxis Current Visit: Yes Status: Acute Plan to address problem: On heparin and GI prophylaxis
[2020-02-26] MEDS: INSULIN LISPRO 100 UNIT/ML SUB-Q SCH ×4 (08:58→21:20)
[2020-02-26] MEDS: allopurinoL 100 MG TAB PO SCH (09:44)
[2020-02-26] MEDS: busPIRone 5 MG TAB PO SCH ×2 (09:44→21:12)
[2020-02-26] MEDS: PANTOPRAZOLE 40 MG INJ IV SCH (09:44)
[2020-02-26] MEDS: HEPARIN 5,000 UNIT/1 ML VIAL SUB-Q SCH ×2 (09:46→21:18)
[2020-02-26] MEDS: NICOTINE 14 MG/24 HR PATCH TD SCH (09:48)
[2020-02-26] MEDS ORDERED: MAGNESIUM SULFATE 2 GM/50 ML BAG IV ONE (10:00)
--- NOTE | 2020-02-26 13:09 | Progress Note ---
Assessment and Plan Assessment and plan: (1) Acute gastritis without bleeding Patient initiated on IV Protonix IV fluids GI consulted (2) Hyponatremia Should resolve with IV fluids normal saline (3) Acute pancreatitis due to alcohol GI following clear liquids for now (4) Transaminitis Secondary to EtOH Hepatitis profile ordered Needs to stop drinking alcohol Patient to be counseled by primary team (5) EtOH dependence Initiated on CIWA protocol (6) Hypertension Continue her antihypertensives (7) Type 2 diabetes mellitus Coverage for now Resume metformin after gastritis is resolved (8) Acute renal failure (ARF) ADDISON consistent with vasomotor nephropathy IV fluids for now (9) DVT prophylaxis Poss dc home tomorrow. History Interval history: Abdominal pain Hospitalist Physical - Physical exam Narrative exam: GEN: Not in acute distress, obese, lying in bed HEENT: Normocephalic, atraumatic, Neck: supple, No JVD Lungs: Clear to auscultation bilaterally, heart;S1 and S2 reg, no murmurs, rubs or gallop Abd:soft, tender mid to upper abd, non distended, normal bowel sounds, Ext: No edema, no clubbing, no cyanosis, Neuro: Awake,alert,oriented X3 , no focal signs, - Constitutional Vitals: Temp Pulse Resp BP Pulse Ox 98.7 F 77 20 112/74 97 02/26/20 13:03 02/26/20 13:03 02/26/20 13:03 02/26/20 13:03 02/26/20 13:03 General appearance: Present: no acute distress Results - Labs CBC & Chem 7: 02/27/20 04:31 02/27/20 04:31 Labs: Laboratory Last Values WBC 5.4 K/mm3 (4.5-11.0) 02/26/20 04:07 RBC 3.25 M/mm3 (3.65-5.03) L 02/26/20 04:07 Hgb 9.5 gm/dl (10.1-14.3) L 02/26/20 04:07 Hct 29.1 % (30.3-42.9) L D 02/26/20 04:07 MCV 90 fl (79-97) 02/26/20 04:07 MCH 29 pg (28-32) 02/26/20 04:07 MCHC 33 % (30-34) 02/26/20 04:07 RDW 17.0 % (13.2-15.2) H 02/26/20 04:07 Plt Count 125 K/mm3 (140-440) L 02/26/20 04:07 Lymph % (Auto) 39.9 % (13.4-35.0) H 02/26/20 04:07 [place] % (Auto) 4.8 % (0.0-7.3) 02/26/20 04:07 Eos % (Auto) 4.1 % (0.0-4.3) 02/26/20 04:07 Baso % (Auto) 1.4 % (0.0-1.8) 02/26/20 04:07 Lymph # 2.1 K/mm3 (1.2-5.4) 02/26/20 04:07 [place] # 0.3 K/mm3 (0.0-0.8) 02/26/20 04:07 Eos # 0.2 K/mm3 (0.0-0.4) 02/26/20 04:07 Baso # 0.1 K/mm3 (0.0-0.1) 02/26/20 04:07 Seg Neutrophils % 49.8 % (40.0-70.0) 02/26/20 04:07 Seg Neutrophils # 2.7 K/mm3 (1.8-7.7) 02/26/20 04:07 PT 14.3 Sec. (12.2-14.9) 02/24/20 20:31 INR 1.10 (0.87-1.13) 02/24/20 20:31 Sodium 138 mmol/L (137-145) 02/26/20 04:07 Potassium 3.8 mmol/L (3.6-5.0) 02/26/20 04:07 Chloride 106.5 mmol/L (98-107) 02/26/20 04:07 Carbon Dioxide 17 mmol/L (22-30) L 02/26/20 04:07 Anion Gap 18 mmol/L 02/26/20 04:07 BUN 20 mg/dL (7-17) H 02/26/20 04:07 Creatinine 1.1 mg/dL (0.7-1.2) 02/26/20 04:07 Estimated GFR > 60 ml/min 02/26/20 04:07 BUN/Creatinine Ratio 18 % 02/26/20 04:07 Glucose 166 mg/dL (65-100) H 02/26/20 04:07 POC Glucose 129 (70-105) H 02/26/20 12:15 Hemoglobin A1c 5.2 % (4-6) 02/25/20 17:10 Calcium 8.2 mg/dL (8.4-10.2) L 02/26/20 04:07 Phosphorus 3.50 mg/dL (2.5-4.5) 02/25/20 17:10 Magnesium 1.40 mg/dL (1.7-2.3) L 02/24/20 20:31 Total Bilirubin 0.60 mg/dL (0.1-1.2) 02/26/20 04:07 AST 111 units/L (5-40) H 02/26/20 04:07 ALT 68 units/L (7-56) H 02/26/20 04:07 Alkaline Phosphatase 226 units/L (35-129) H 02/26/20 04:07 Ammonia 36.0 umol/L (25-60) 02/25/20 17:10 Total Creatine Kinase 92 units/L (30-135) 02/24/20 20:31 Total Protein 6.2 g/dL (6.3-8.2) L D 02/26/20 04:07 Albumin 3.9 g/dL (3.9-5) 02/26/20 04:07 Albumin/Globulin Ratio 1.7 % 02/26/20 04:07 Amylase 164 units/L (27-131) H 02/25/20 17:10 Lipase 406 units/L (13-60) H 02/26/20 10:00 Urine Color Yellow (Yellow) 02/25/20 01:52 Urine Turbidity Clear (Clear) 02/25/20 01:52 Urine pH 6.0 (5.0-7.0) 02/25/20 01:52 Ur Specific [place] 1.006 (1.003-1.030) 02/25/20 01:52 Urine Protein 30 mg/dl mg/dL (Negative) 02/25/20 01:52 Urine Glucose (UA) Neg mg/dL (Negative) 02/25/20 01:52 Urine Ketones Neg mg/dL (Negative) 02/25/20 01:52 Urine Blood Neg (Negative) 02/25/20 01:52 Urine Nitrite Neg (Negative) 02/25/20 01:52 Urine Bilirubin Neg (Negative) 02/25/20 01:52 Urine Urobilinogen < 2.0 mg/dL (<2.0) 02/25/20 01:52 Ur Leukocyte Esterase Neg (Negative) 02/25/20 01:52 Urine WBC (Auto) < 1.0 /HPF (0.0-6.0) 02/25/20 01:52 Urine RBC (Auto) 2.0 /HPF (0.0-6.0) 02/25/20 01:52 U Epithel Cells (Auto) 1.0 /HPF (0-13.0) 02/25/20 01:52 Salicylates < 0.3 mg/dL (2.8-20.0) L 02/24/20 20:31 Urine Opiates Screen Presumptive negative 02/25/20 01:52 Urine Methadone Screen Presumptive negative 02/25/20 01:52 Acetaminophen < 5.0 ug/mL (10.0-30.0) L 02/24/20 20:31 Ur Barbiturates Screen Presumptive negative 02/25/20 01:52 Ur Phencyclidine Scrn Presumptive negative 02/25/20 01:52 Ur Amphetamines Screen Presumptive negative 02/25/20 01:52 U Benzodiazepines Scrn Presumptive negative 02/25/20 01:52 Urine Cocaine Screen Presumptive negative 02/25/20 01:52 U Marijuana (THC) Screen Presumptive negative 02/25/20 01:52 Drugs of Abuse Note Disclamer 02/25/20 01:52 Plasma/Serum Alcohol < 0.01 % (0-0.07) 02/25/20 09:56 Johnson/IV: Voiding Method Toilet IV Catheter Type [Right Hand] INT / Saline Lock Active Medications - Current Medications Current Medications: Generic Name Dose Route Start Last Admin Trade Name Freq PRN Reason Stop Dose Admin Acetaminophen 650 mg 02/25/20 16:30 Tylenol PO Q4H PRN Pain MILD(1-3)/Fever >100.5/NINO Allopurinol 100 mg 02/25/20 17:00 02/26/20 09:44 Zyloprim PO 100 mg DAILY [facility] Administration Atorvastatin Calcium 20 mg 02/25/20 22:00 02/25/20 21:28 Lipitor PO 20 mg QHS [facility] Administration Buspirone HCl 15 mg 02/25/20 22:00 02/26/20 09:44 Buspar PO 15 mg BID [facility] Administration Carvedilol 12.5 mg 02/25/20 17:00 02/26/20 05:59 Coreg PO 12.5 mg Q12H [facility] Administration Heparin Sodium (Porcine) 5,000 unit 02/26/20 10:00 02/26/20 09:46 Heparin SUB-Q 5,000 unit Q12HR [facility] Administration Hydralazine HCl 10 mg 02/25/20 16:36 02/25/20 17:02 Apresoline IV 10 mg Q3H PRN Administration HTN >160/100 Hydromorphone HCl 1 mg 02/25/20 16:30 Dilaudid IV Q3H PRN Pain , Severe (7-10) Sodium Chloride 1,000 mls @ 125 mls/hr 02/25/20 16:30 02/25/20 18:15 Nacl 0.9% 1000 Ml IV 125 mls/hr DIRECT [facility] Administration Insulin Human Lispro 0 unit 02/25/20 22:00 02/26/20 12:25 Humalog SUB-Q Not Given ACHS [facility] Protocol Levothyroxine Sodium 50 mcg 02/26/20 06:00 02/26/20 05:59 Synthroid PO 50 mcg DAILY@0600 [facility] Administration Lorazepam 2 mg 02/25/20 16:39 Ativan IV Q1H PRN CIWA-Ar 8-15 Lorazepam 4 mg 02/25/20 16:39 Ativan IV Q1H PRN CIWA-Ar 16-25 Nicotine 14 mg 02/26/20 10:00 02/26/20 09:48 Habitrol TD 14 mg QDAY [facility] Administration Ondansetron HCl 4 mg 02/25/20 16:30 Zofran IV Q3H PRN Nausea And Vomiting Oxycodone/Acetaminophen 1 tab 02/25/20 16:30 02/26/20 08:59 Percocet 5/325 PO 1 tab Q6H PRN Administration Pain, Moderate (4-6) Pantoprazole Sodium 40 mg 02/25/20 22:00 02/26/20 09:44 Protonix IV 40 mg BID [facility] Administration Promethazine HCl 25 mg 02/25/20 16:29 Phenergan PO Q12H PRN Nausea Sodium Chloride 10 ml 02/25/20 22:00 02/26/20 10:01 Sodium Chloride Flush Syringe 10 Ml IV Not Given BID [facility] Sodium Chloride 10 ml 02/25/20 16:30 Sodium Chloride Flush Syringe 10 Ml IV PRN PRN LINE FLUSH Valsartan 160 mg 02/25/20 17:00 02/26/20 05:58 Diovan PO 160 mg Q12H [facility] Administration
[2020-02-26 14:03] LABS: Hepatitis B Surface Antigen Non-Reactive (Negative); Hepatitis C Virus Antibody Non-Reactive (NonReactive)
[2020-02-26] MEDS: SODIUM CHLORIDE 0.9% 1000 ML 1,000 ML IV SCH ×2 (15:33→23:49)
[2020-02-26] MEDS ORDERED: ACETAMINOPHEN 325 MG TAB PO PRN (15:35)
--- NOTE | 2020-02-26 15:42 | Gastroenterology Consultation ---
History of Present Illness - Reason for Consult Consult date: 02/26/20 Pancreatitis Requesting physician: KRISTAL DAWSON - History of Present Illness The patient is known to our service from previous admits for EtOH-related pancreatitis. She last binged 2 days ago, with at least 1 pint of liqour. Within a few hours she had intractable N/V/epigastric pain. There was no blood in the emesis, and no blood in the stools. She had no CP or SOB, and there is no fever. On her admit CT, she had no gross necrosis. There is no family hx of pancreatitis. The patient is a smoker, and has diabetes. Past History Past Medical History: hypertension, hypothyroidism, other (Anxiety/Depression, Gout, Recurrent Acute Pancreatitis) Past Surgical History: cholecystectomy, hysterectomy Social history: smoking, alcohol abuse Family history: no significant family history Medications and Allergies Allergies Allergy/AdvReac Type Severity Reaction Status Date / Time latex Allergy Hives Verified 10/12/17 14:15 Sulfa (Sulfonamide Allergy Swelling Verified 10/12/17 14:15 Antibiotics) Home Medications Medication Instructions Recorded Confirmed Last Taken Type Pepcid 20 mg PO DAILY 12/07/19 02/25/20 Unknown History AtorvaSTATin [Lipitor] 20 mg PO QHS 02/25/20 02/25/20 Unknown History Buspirone HCl [busPIRone] 15 mg PO BID 02/25/20 02/25/20 Unknown History Colchicine 0.6 mg PO BID 02/25/20 02/25/20 Unknown History Levothyroxine [Synthroid] 50 mcg PO QAM 02/25/20 02/25/20 Unknown History Oxycodone HCl [oxyCODONE] 10 mg PO BID PRN 02/25/20 02/25/20 Unknown History Pantoprazole [Protonix TAB] 40 mg PO DAILY 02/25/20 02/25/20 Unknown History Promethazine [Phenergan] 25 mg PO Q12H PRN 02/25/20 02/25/20 Unknown History allopurinoL [Zyloprim] 100 mg PO DAILY 02/25/20 02/25/20 Unknown History glipiZIDE [Glucotrol] 5 mg PO DAILY 02/25/20 02/25/20 Unknown History metFORMIN [Glucophage] 500 mg PO DAILY 04/21/20 04/21/20 Unknown History Active Meds: Active Medications Acetaminophen (Tylenol) 650 mg PO Q6H PRN PRN Reason: Pain MILD(1-3)/Fever >100.5/NINO Allopurinol (Zyloprim) 100 mg PO DAILY [facility] Last Admin: 02/26/20 09:44 Dose: 100 mg Documented by: Atorvastatin Calcium (Lipitor) 20 mg PO QHS [facility] Last Admin: 02/25/20 21:28 Dose: 20 mg Documented by: Buspirone HCl (Buspar) 15 mg PO BID [facility] Last Admin: 02/26/20 09:44 Dose: 15 mg Documented by: Carvedilol (Coreg) 12.5 mg PO Q12H [facility] Last Admin: 02/26/20 05:59 Dose: 12.5 mg Documented by: Heparin Sodium (Porcine) (Heparin) 5,000 unit SUB-Q Q12HR [facility] Last Admin: 02/26/20 09:46 Dose: 5,000 unit Documented by: Hydralazine HCl (Apresoline) 10 mg IV Q3H PRN PRN Reason: HTN >160/100 Last Admin: 02/25/20 17:02 Dose: 10 mg Documented by: Sodium Chloride (Nacl 0.9% 1000 Ml) 1,000 mls @ 125 mls/hr IV DIRECT [facility] Last Admin: 02/26/20 15:33 Dose: 125 mls/hr Documented by: Insulin Human Lispro (Humalog) 0 unit SUB-Q ACHS [facility]; Protocol Last Admin: 02/26/20 12:25 Dose: Not Given Documented by: Levothyroxine Sodium (Synthroid) 50 mcg PO DAILY@0600 [facility] Last Admin: 02/26/20 05:59 Dose: 50 mcg Documented by: Lorazepam (Ativan) 2 mg IV Q1H PRN PRN Reason: CIWA-Ar 8-15 Lorazepam (Ativan) 4 mg IV Q1H PRN PRN Reason: CIWA-Ar 16-25 Nicotine (Habitrol) 14 mg TD QDAY [facility] Last Admin: 02/26/20 09:48 Dose: 14 mg Documented by: Ondansetron HCl (Zofran) 4 mg IV Q3H PRN PRN Reason: Nausea And Vomiting Oxycodone/Acetaminophen (Percocet 5/325) 1 tab PO Q6H PRN PRN Reason: Pain, Moderate (4-6) Last Admin: 04/22/20 15:23 Dose: 1 tab Documented by: Pantoprazole Sodium (Protonix) 40 mg PO QDAY [facility] Promethazine HCl (Phenergan) 25 mg PO Q12H PRN PRN Reason: Nausea Sodium Chloride (Sodium Chloride Flush Syringe 10 Ml) 10 ml IV BID [facility] Last Admin: 02/26/20 10:01 Dose: Not Given Documented by: Sodium Chloride (Sodium Chloride Flush Syringe 10 Ml) 10 ml IV PRN PRN PRN Reason: LINE FLUSH Valsartan (Diovan) 160 mg PO Q12H [facility] Last Admin: 02/26/20 05:58 Dose: 160 mg Documented by: I HAVE REVIEWED AND RECONCILED MEDICATIONS Review of Systems - Review of Systems All systems: negative (as noted in the HPI) Exam - Constitutional Vital Signs: Temp Pulse Resp BP Pulse Ox 98.7 F 77 20 112/74 97 02/26/20 13:03 02/26/20 13:03 02/26/20 13:03 02/26/20 13:03 02/26/20 13:03 General appearance: no acute distress - EENT Eyes: PERRL, EOM intact ENT: hearing intact, clear oral mucosa, poor dentition - Neck Neck: supple, normal ROM - Respiratory Respiratory effort: normal Respiratory: bilateral: CTA - Cardiovascular Rhythm: regular Heart Sounds: Present: S1 & S2 Extremities: no ischemia, No edema - Gastrointestinal General gastrointestinal: Present: soft, non-tender, non-distended - Integumentary Integumentary: Present: clear, warm, dry - Neurologic Neurological: alert and oriented x3 - Psychiatric Psychiatric: appropriate mood/affect - Labs CBC & Chem 7: 02/26/20 04:07 02/26/20 04:07 Lab Results: Laboratory Results - last 24 hr 02/25/20 02/25/20 02/25/20 17:10 17:10 17:10 WBC RBC Hgb Hct MCV MCH MCHC RDW Plt Count Lymph % (Auto) Mitchell % (Auto) Eos % (Auto) Baso % (Auto) Lymph # Mitchell # Eos # Baso # Seg Neutrophils % Seg Neutrophils # Sodium Potassium Chloride Carbon Dioxide Anion Gap BUN Creatinine Estimated GFR BUN/Creatinine Ratio Glucose POC Glucose Hemoglobin A1c 5.2 Calcium 8.5 Phosphorus 3.50 Total Bilirubin AST ALT Alkaline Phosphatase Ammonia 36.0 Total Protein Albumin 4.0 Albumin/Globulin Ratio Amylase 164 H Lipase Hepatitis A IgM Ab Hep Bs Antigen Hep B Core IgM Ab Hepatitis C Antibody 02/25/20 02/26/20 02/26/20 22:59 04:07 04:07 WBC 5.4 RBC 3.25 L Hgb 9.5 L Hct 29.1 L D MCV 90 MCH 29 MCHC 33 RDW 17.0 H Plt Count 125 L Lymph % (Auto) 39.9 H Mitchell % (Auto) 4.8 Eos % (Auto) 4.1 Baso % (Auto) 1.4 Lymph # 2.1 Mitchell # 0.3 Eos # 0.2 Baso # 0.1 Seg Neutrophils % 49.8 Seg Neutrophils # 2.7 Sodium 138 Potassium 3.8 Chloride 106.5 Carbon Dioxide 17 L Anion Gap 18 BUN 20 H Creatinine 1.1 Estimated GFR > 60 BUN/Creatinine Ratio 18 Glucose 166 H POC Glucose 121 H Hemoglobin A1c Calcium 8.2 L Phosphorus Total Bilirubin 0.60 AST 111 H ALT 68 H Alkaline Phosphatase 226 H Ammonia Total Protein 6.2 L D Albumin 3.9 Albumin/Globulin Ratio 1.7 Amylase Lipase Hepatitis A IgM Ab Hep Bs Antigen Hep B Core IgM Ab Hepatitis C Antibody 02/26/20 02/26/20 02/26/20 10:00 10:00 12:15 WBC RBC Hgb Hct MCV MCH MCHC RDW Plt Count Lymph % (Auto) Mitchell % (Auto) Eos % (Auto) Baso % (Auto) Lymph # Mitchell # Eos # Baso # Seg Neutrophils % Seg Neutrophils # Sodium Potassium Chloride Carbon Dioxide Anion Gap BUN Creatinine Estimated GFR BUN/Creatinine Ratio Glucose POC Glucose 129 H Hemoglobin A1c Calcium Phosphorus Total Bilirubin AST ALT Alkaline Phosphatase Ammonia Total Protein Albumin Albumin/Globulin Ratio Amylase Lipase 406 H Hepatitis A IgM Ab Non-reactive Hep Bs Antigen Non-reactive Hep B Core IgM Ab Non-reactive Hepatitis C Antibody Non-reactive Assessment and Plan - Patient Problems (1) Acute alcoholic pancreatitis Current Visit: Yes Status: Acute Plan to address problem: - No fever, WBC WNL, and no necrosis on CT scan; likely uncomplicated. - OK to advance diet and d/c home when taking PO. - Patient encouraged in abstinence. - Will give daily MVI for malnutrition.
[2020-02-27] MEDS: oxyCODONE /ACETAMINOPHEN 5-325MG TAB PO PRN ×2 (02:04→09:30)
[2020-02-27 04:58] LABS: Hematocrit 26.5 % (30.3-42.9); Hemoglobin 8.6 gm/dl (10.1-14.3); Mean Corpuscular HGB Conc 33 % (30-34); Mean Corpuscular Volume 90 fl (79-97); Platelet Count 100 K/mm3 (140-440); Red Blood Count 2.93 M/mm3 (3.65-5.03); Red Cell Distribution Width 16.8 % (13.2-15.2)
[2020-02-27] MEDS: VALSARTAN 160MG TAB PO SCH (05:13)
[2020-02-27] MEDS: carvediloL 12.5 MG TAB PO SCH (05:14)
[2020-02-27] MEDS: LEVOTHYROXINE 50 MCG TAB PO SCH (05:17)
[2020-02-27 05:18] LABS: Alanine Aminotransferase 56 units/L (7-56); Albumin 3.5 g/dL (3.9-5); BUN/Creatinine Ratio 14; Blood Urea Nitrogen 14 mg/dL (7-17); Calcium 8.1 mg/dL (8.4-10.2); Hemolysis Index 2
[2020-02-27] MEDS: INSULIN LISPRO 100 UNIT/ML SUB-Q SCH ×2 (08:21→12:30)
[2020-02-27] MEDS: busPIRone 5 MG TAB PO SCH (09:31)
[2020-02-27] MEDS: NICOTINE 14 MG/24 HR PATCH TD SCH (09:31)
[2020-02-27] MEDS: HEPARIN 5,000 UNIT/1 ML VIAL SUB-Q SCH (09:31)
[2020-02-27] MEDS: allopurinoL 100 MG TAB PO SCH (09:32)
[2020-02-27] MEDS ORDERED: MULTIVITAMINS ,THERAPEUTIC TAB PO SCH (10:00)
[2020-02-27] MEDS ORDERED: PANTOPRAZOLE 40 MG TAB PO SCH (10:00)
--- NOTE | 2020-02-27 10:08 | Discharge Summary ---
Providers - Providers Date of Admission: 02/26/20 16:00 Date of discharge: 02/27/20 Attending physician: KRISTAL DAWSON 02/25/20 Consult to Case Management [CONS] Routine Services Needed at Discharge: Pleat Taper Notified:: correctional casework specialist 02/26/20 07:59 Consult to Physician [CONS] Routine Comment: Consulting Provider: ANETTE SANDOVAL Physician Instructions: Reason For Exam: Acute on chronic pancreatitis Primary care physician: CHICHI QUINTEROS Hospitalization Condition: Fair Hospital course: Patient is 54-year-old female with history of hypertension, gout, depression and EtOH dependence comes in for anxiety and alcohol dependence. Patient states that she drinks half a pint of gin every day. Patient was complaining of epigas tric pain radiating to the back. Pain is about 7 on a scale of 1-10 sharp in nature. Associated with nausea and vomiting. Denies any hematemesis. No fever or chills. She was seen and evaluated. Labs show elevated lipase, CT Abdomen revealed acute on chronic pancreatitis. She was admitted and GI consulted. She improved with NPO, later started on liquid diet. She had acute kidney injury due to vasomotor nephropathy improved with iv fluids. She felt better tolerated solid food so was discharged home on 02/27/2020 to follow as outpatient. Total time spent on discharge, 34 mins Disposition: TO HOME OR SELFCARE - Discharge Diagnoses (1) ADDISON (acute kidney injury) Status: Acute (2) Acute alcoholic pancreatitis Status: Acute (3) Acute gastritis without bleeding Status: Acute Qualifiers: Gastritis type: alcoholic Qualified Code(s): K29.20 - Alcoholic gastritis without bleeding (4) Acute pancreatitis Status: Acute Qualifiers: Pancreatitis type: unspecified pancreatitis type Acute pancreatitis complication: unspecified Qualified Code(s): K85.90 - Acute pancreatitis without necrosis or infection, unspecified (5) Hypomagnesemia Status: Acute (6) Hyponatremia Status: Acute (7) Transaminitis Status: Acute (8) Hypertension Status: Chronic Qualifiers: Hypertension type: essential hypertension Qualified Code(s): I10 - Essential (primary) hypertension (9) Type 2 diabetes mellitus Status: Chronic Qualifiers: Diabetes mellitus 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 2.Avoid Alcohol Follow up with: CHICHI QUINTEROS MD [Primary Care Provider] - 3-5 Days
[2020-02-27 12:42] VITALS: BP 146/93
== END 2020-02-27 14:05 | disposition home or self-care (01) | DRG 438 ==
LOC: ED 20:10 → 4A 02-25 12:26 → OBSVTOIN 02-26 16:00
PROVIDERS: ADMIT Internal Medicine; ATTEND Internal Medicine
DX: K85.20 Alcohol induced acute pancreatitis without necrosis or infection (principal); N17.0 Acute kidney failure with tubular necrosis; E87.1 Hypo-osmolality and hyponatremia; F10.288 Alcohol dependence with other alcohol-induced disorder; K29.20 Alcoholic gastritis without bleeding; I10 Essential (primary) hypertension; F17.210 Nicotine dependence, cigarettes, uncomplicated; E11.9 Type 2 diabetes mellitus without complications; J45.909 Unspecified asthma, uncomplicated; E83.42 Hypomagnesemia; M10.9 Gout, unspecified; F41.8 Other specified anxiety disorders; R74.0 Nonspecific elevation of levels of transaminase and lactic acid dehydrogenase [LDH]; Y90.9 Presence of alcohol in blood, level not specified; E03.9 Hypothyroidism, unspecified; Z82.49 Family history of ischemic heart disease and other diseases of the circulatory system; Z71.6 Tobacco abuse counseling; Z90.710 Acquired absence of both cervix and uterus; Z88.2 Allergy status to sulfonamides; Z91.040 Latex allergy status; Z90.49 Acquired absence of other specified parts of digestive tract
CPT/HCPCS: 36415; 71046; 74176; 80048; 80053; 80074; 80307; 80320; 81001; 82040; 82140; 82150; 82310; 82550; 82962; 83036; 83690; 83735; 84100; 85025; 85027; 85610; 87116; 93005; 99406; G0378; A9270-GY; C9113; G0480; J0360; J1644; J1815; J2270; J2405; J2543; J3411; J3475; J7030

== ENCOUNTER 2021-07-14 14:09 | Emergency (ER) | payer MEDICARE ==
[2021-07-14 14:29] VITALS: BP 94/66
--- NOTE | 2021-07-14 14:37 | Event Note ---
ED Screening Note Date of service: 07/14/21 Time: 14:36 ED Screening Note: 55-year-old -Armenian female with a past medical history of pancreatitis presents to the emergency room complaining of chest pain that is mid chest and epigastric for the last 4 days. Patient states that is gotten worse when she is getting weak. Patient does admit to a fever yesterday but none today. Admits to nausea and vomiting. She states that her stool is been black. She denies any cardiac history. Primary care provider is Dr. Reddy. Unvaccinated. This initial assessment/diagnostic orders/clinical plan/treatment(s) is/are subject to change based on patients health status, clinical progression and re- assessment by fellow clinical providers in the ED. Further treatment and workup at subsequent clinical providers discretion. Patient/guardian urged not to elope from the ED as their condition may be serious if not clinically assessed and managed. Initial orders include:
--- NOTE | 2021-07-14 15:01 | XRay Report ---
CHEST 2 VIEWS INDICATION / CLINICAL INFORMATION: sob,cough and rales. COMPARISON: 02/24/2020 FINDINGS: SUPPORT DEVICES: None. HEART / MEDIASTINUM: No significant abnormality. LUNGS / PLEURA: Mild scarring/atelectasis right midlung near the fissure. No pneumothorax. ADDITIONAL FINDINGS: No significant additional findings. IMPRESSION: 1. No acute findings. Signer Name: Donta Ku MD Signed: 07/14/2021 2:57 PM Workstation Name: [id number]
[2021-07-14] MEDS ORDERED: ONDANSETRON 4 MG/2 ML INJ IV ONE ×2 (15:03→17:24)
[2021-07-14 17:09] LABS: Basophils # (Auto) 0.1 K/mm3 (0.0-0.1); Basophils % (Auto) 0.7 % (0.0-1.8); Eosinophils # (Auto) 0.3 K/mm3 (0.0-0.4); Eosinophils % (Auto) 3.5 % (0.0-4.3); Hematocrit 37.2 % (30.3-42.9); Hemoglobin 11.8 gm/dl (10.1-14.3); Lymphocytes # (Auto) 3.2 K/mm3 (1.2-5.4); Lymphocytes % (Auto) 39.9 % (13.4-35.0); Mean Corpuscular HGB Conc 32 % (30-34); Mean Corpuscular Volume 87 fl (79-97); Monocytes # (Auto) 0.6 K/mm3 (0.0-0.8); Monocytes % (Auto) 7.6 % (0.0-7.3); Platelet Count 299 K/mm3 (140-440)
[2021-07-14 18:12] LABS: Albumin 4.4 g/dL (3.9-5); Calcium 9.1 mg/dL (8.4-10.2)
[2021-07-14] MEDS ORDERED: ALUM-MAG HYDROXIDE-SIMETHICONE 200-200-20MG/5ML ORAL LIQD 30 ML PO ONE (18:31)
[2021-07-14] MEDS ORDERED: LIDOCAINE VISCOUS 2% 15 ML ORAL LIQD PO ONE (18:31)
--- NOTE | 2021-07-14 18:34 | Emergency Department Report ---
ED Abdominal Pain HPI - General Chief Complaint: Chest Pain Stated Complaint: CHEST PAINS Time Seen by Provider: 07/14/21 14:32 Source: patient Mode of arrival: Ambulatory Limitations: No Limitations - History of Present Illness Initial Comments: Patient presented with chest pain abdominal pain. She actually states that she feels as though her pancreas is inflamed. She is describing a sharp and burning pain in the epigastric area that radiates up into the chest. This is the same symptom she has had previously with pancreatitis. She has a history of alcoholic pancreatitis. She is not had any alcohol in 7 months. Patient came in today because the onset of symptoms. She actually states her symptoms started 2 to 3 days ago and have worsened over the last day. She has had nausea with vomiting. There is no hematemesis or coffee-ground emesis. She has no melenic stool. Patient has no trauma. She does not know what may have triggered her symptoms this time. The pain does not hurt into the lower abdomen. She has no dysuria or frequency. Severity scale (0 -10): 9 - Related Data Home Medications Medication Instructions Recorded Confirmed Last Taken Pepcid 20 mg PO DAILY 12/07/19 02/25/20 Unknown AtorvaSTATin [Lipitor] 20 mg PO QHS 02/25/20 02/25/20 Unknown Buspirone HCl [busPIRone] 15 mg PO BID 02/25/20 02/25/20 Unknown Colchicine 0.6 mg PO BID 02/25/20 02/25/20 Unknown Levothyroxine [Synthroid] 50 mcg PO QAM 02/25/20 02/25/20 Unknown Oxycodone HCl [oxyCODONE] 10 mg PO BID PRN 02/25/20 02/25/20 Unknown Pantoprazole [Protonix TAB] 40 mg PO DAILY 02/25/20 02/25/20 Unknown Promethazine [Phenergan] 25 mg PO Q12H PRN 02/25/20 02/25/20 Unknown allopurinoL [Zyloprim] 100 mg PO DAILY 02/25/20 02/25/20 Unknown glipiZIDE [Glucotrol] 5 mg PO DAILY 02/25/20 02/25/20 Unknown metFORMIN [Glucophage] 500 mg PO DAILY 02/25/20 02/25/20 Unknown Irbesartan 150 mg PO DAILY 02/27/20 02/27/20 Unknown Metoprolol [Lopressor] 100 mg PO BID 02/27/20 02/27/20 Unknown Previous Rx's Medication Instructions Recorded Last Taken Type Hyoscyamine Subl [Levsin Sl 0.125 0.125 mg SL Q6HR PRN #20 tab 07/14/21 Unknown Rx TAB] Sucralfate [Carafate] 1 gm PO ACHS #120 tablet 07/14/21 Unknown Rx Allergies Allergy/AdvReac Type Severity Reaction Status Date / Time latex Allergy Hives Verified 10/12/17 14:15 Sulfa (Sulfonamide Allergy Swelling Verified 10/12/17 14:15 Antibiotics) ED Review of Systems ROS: Stated complaint: CHEST PAINS Other details as noted in HPI Comment: All other systems reviewed and negative Constitutional: denies: fever Eyes: denies: vision change ENT: denies: throat pain Respiratory: denies: cough Cardiovascular: as per HPI Endocrine: denies: unexplained weight loss Gastrointestinal: as per HPI. denies: hematemesis, melena Genitourinary: denies: hematuria Musculoskeletal: denies: back pain Skin: denies: rash Neurological: denies: headache Hematological/Lymphatic: denies: easy bruising ED Past Medical Hx - Past Medical History Hx Hypertension: Yes Hx Congestive Heart Failure: No Hx Diabetes: Yes Hx Renal Disease: No Hx Arthritis: No Hx Seizures: No Hx Asthma: Yes Hx COPD: No Hx Dementia: No Additional medical history: PANCREATITIS - Surgical History Hx Cholecystectomy: Yes Hx Appendectomy: No Additional Surgical History: BREAST LUMP REMOVALS / HYSTERECTOMY - Family History Family history: no significant (No AAA) - Social History Smoking Status: Current Every Day Smoker - Medications Home Medications: Home Medications Medication Instructions Recorded Confirmed Last Taken Type Pepcid 20 mg PO DAILY 12/07/19 02/25/20 Unknown History AtorvaSTATin [Lipitor] 20 mg PO QHS 02/25/20 02/25/20 Unknown History Buspirone HCl [busPIRone] 15 mg PO BID 02/25/20 02/25/20 Unknown History Colchicine 0.6 mg PO BID 02/25/20 02/25/20 Unknown History Levothyroxine [Synthroid] 50 mcg PO QAM 02/25/20 02/25/20 Unknown History Oxycodone HCl [oxyCODONE] 10 mg PO BID PRN 02/25/20 02/25/20 Unknown History Pantoprazole [Protonix TAB] 40 mg PO DAILY 02/25/20 02/25/20 Unknown History Promethazine [Phenergan] 25 mg PO Q12H PRN 02/25/20 02/25/20 Unknown History allopurinoL [Zyloprim] 100 mg PO DAILY 02/25/20 02/25/20 Unknown History glipiZIDE [Glucotrol] 5 mg PO DAILY 02/25/20 02/25/20 Unknown History metFORMIN [Glucophage] 500 mg PO DAILY 02/25/20 02/25/20 Unknown History Irbesartan 150 mg PO DAILY 02/27/20 02/27/20 Unknown History Metoprolol [Lopressor] 100 mg PO BID 02/27/20 02/27/20 Unknown History Hyoscyamine Subl [Levsin Sl 0.125 0.125 mg SL Q6HR PRN #20 tab 07/14/21 Unknown Rx TAB] Sucralfate [Carafate] 1 gm PO ACHS #120 tablet 07/14/21 Unknown Rx ED Physical Exam - General Limitations: No Limitations General appearance: alert, in no apparent distress, other (And pain) - Head Head exam: Present: atraumatic, normocephalic - Eye Eye exam: Present: normal appearance, EOMI. Absent: scleral icterus - ENT ENT exam: Present: normal exam, normal orophraynx, mucous membranes moist - Neck Neck exam: Present: normal inspection. Absent: meningismus - Respiratory Respiratory exam: Present: normal lung sounds bilaterally. Absent: respiratory distress - Cardiovascular Cardiovascular Exam: Present: regular rate, normal rhythm - GI/Abdominal GI/Abdominal exam: Present: soft, tenderness (Mild epigastric tenderness without rebound, guarding, or mass. There is no pulsatile mass.) - Extremities Exam Extremities exam: Present: normal capillary refill. Absent: pedal edema - Back Exam Back exam: Absent: CVA tenderness (R), CVA tenderness (L) - Neurological Exam Neurological exam: Present: alert, oriented X3, normal gait. Absent: motor sensory deficit - Psychiatric Psychiatric exam: Present: normal affect, normal mood - Skin Skin exam: Present: warm, dry ED Course Vital Signs 07/14/21 14:26 Pulse Rate 84 Respiratory 16 Rate Blood Pressure 94/66 [Left] O2 Sat by Pulse 99 Oximetry - Reevaluation(s) Reevaluation #1: 07/14/21 18:32 Patient has been seen previously. IV labs ordered. CT had also been ordered. At this time, patient has labs noted. These of been discussed with her. There is no evidence of acute pancreatitis. Lipase is slightly elevated, but is certainly not 3 times normal limit. She does have some mild right upper quadrant tenderness but certainly does not have rebound or guarding. She has a negative Catalan sign. She does not have a significant transaminitis. There is no change in bilirubin. I do not believe this represents acute hepatitis. She will be treated medically and discharged. ED Medical Decision Making - Lab Data Result diagrams: 07/14/21 16:23 07/14/21 16:23 - EKG Data -: EKG Interpreted by Me EKG shows normal: sinus rhythm, axis, intervals, QRS complexes Rate: normal - EKG Data When compared to previous EKG there are: no significant change Interpretation: no acute changes, normal EKG - Medical Decision Making Patient presented secondary to epigastric pain which she relates to her pancreatitis. She certainly does not have evidence of hepatitis. She does not have intractable pain or vomiting that would suggest acute pancreatitis. She does have a slight bump in her lipase, and this could still be related to pancreatitis however she does not require admission. She is not unstable. She is not anemic. There is no symptomatology that would suggest necrotizing pancreatitis or hemorrhagic pancreatitis. She does not have symptoms suggestive of ACS given the referred pain up into her chest. She does have an acute kidney injury but is not vomiting. Oral fluids can be tolerated. There is no indication for CT at this time and the CT was canceled. She does not have any peritoneal findings. There is no pulse deficit that would suggest AAA. She certainly does not have a rigid abdomen or peritoneal findings suggestive of perforated viscus. Critical Care Time: No Critical care attestation.: If time is entered above; I have spent that time in minutes in the direct care of this critically ill patient, excluding procedure time. ED Disposition Clinical Impression: Abdominal pain, acute, epigastric, ADDISON (acute kidney injury), Hypokalemia Disposition: 01 HOME / SELF CARE / HOMELESS Is pt being admited?: No Does the pt Need Aspirin: No Condition: Stable Instructions: Acute Kidney Injury, Adult, Hypokalemia, Abdominal Pain, Adult, [id number], Potassium Content of Foods, Pain Without a Known Cause Additional Instructions: Have a clear liquid diet. Return for problems. Avoid spicy foods in general. Avoid ibuprofen. Follow-up with your regular doctor and your GI doctor for recheck. Continue home medication. Prescriptions: Sucralfate [Carafate] 1 gm PO ACHS #120 tablet Hyoscyamine Subl [Levsin Sl 0.125 TAB] 0.125 mg SL Q6HR PRN #20 tab PRN Reason: Pain , Severe (7-10) Referrals: PRIMARY CARE, [Primary Care Provider] - 3-5 Days
[2021-07-14] MEDS ORDERED: POTASSIUM CHLORIDE ER 20 MEQ TAB PO ONE (18:35)
--- NOTE | 2021-07-15 10:07 | Electrocardiograph Report ---
[facility] Test Date: 2021-07-14 Test Time: 14:16:09 Pat Name: KENRICK LYNN Department: Room: Gender: F [employer]: : 1965 Requested By: PETTY DE LA ROSA Order Number: [id number] Reading MD: Pablo Caballero Measurements Intervals [place] Rate: 82 P: 39 NH: 138 QRS: 32 QRSD: 79 T: 55 QT: 399 QTc: 466 Interpretive Statements Sinus rhythm No previous ECG available for comparison Electronically Signed On 07-15-2021 10:06:50 EDT by Pablo Caballero
== END 2021-07-14 19:05 | disposition home or self-care (01) ==
LOC: ED 14:09
DX: N17.9 Acute kidney failure, unspecified (principal); R10.13 Epigastric pain; E87.6 Hypokalemia; I10 Essential (primary) hypertension; E11.8 Type 2 diabetes mellitus with unspecified complications; F17.200 Nicotine dependence, unspecified, uncomplicated
CPT/HCPCS: 36415; 71046; 80053; 83690; 85025; 93005; 96374; 99284; J2405

== ENCOUNTER 2022-04-26 13:59 | Inpatient (IN) | payer MEDICARE ==
[2022-04-26] MEDS ORDERED: SODIUM CHLORIDE 0.9% 1000 ML 1,000 ML ONE ×2 (16:01→18:21)
[2022-04-26] MEDS ORDERED: NALOXONE 2 MG/2 ML INJ ONE ×2 (16:01→19:09)
[2022-04-26] MEDS ORDERED: ONDANSETRON 4 MG/2 ML INJ ONE (16:01)
--- NOTE | 2022-04-26 16:06 | Emergency Department Report ---
History of Present Illness - General Chief Complaint: Overdose Stated Complaint: AMS/OD Time Seen by Provider: 04/26/22 15:56 Source: patient, EMS Mode of arrival: Stretcher Limitations: Altered Mental Status - History of Present Illness Initial Comments: Patient is 56 years old female with history of schizophrenia. Patient brought to the emergency room via EMS from home for evaluation of possible overdose. Family reported that patient took 15 tablets of oxycodone and also has been drinking alcohol. Upon arrival to the ER patient is obtunded and only responsive to sternal rub and painful stimulation. EMS reported that patient responded 0.4 mg of Narcan. I reviewed patient previous record and patient had a suicidal attempt by overdosing on medication in 2019. Patient is unable to answer any questions at this moment. I added 2 mg of Narcan, Zofran and 1 L of normal saline. MD Complaint: intentional overdose -: unknown - Related Data Home Medications Medication Instructions Recorded Confirmed Last Taken Pepcid 20 mg PO DAILY 12/07/19 02/25/20 Unknown AtorvaSTATin [Lipitor] 20 mg PO QHS 02/25/20 02/25/20 Unknown Buspirone HCl [busPIRone] 15 mg PO BID 02/25/20 02/25/20 Unknown Colchicine 0.6 mg PO BID 02/25/20 02/25/20 Unknown Levothyroxine [Synthroid] 50 mcg PO QAM 02/25/20 02/25/20 Unknown Oxycodone HCl [oxyCODONE] 10 mg PO BID PRN 02/25/20 02/25/20 Unknown Pantoprazole [Protonix TAB] 40 mg PO DAILY 02/25/20 02/25/20 Unknown Promethazine [Phenergan] 25 mg PO Q12H PRN 02/25/20 02/25/20 Unknown allopurinoL [Zyloprim] 100 mg PO DAILY 02/25/20 02/25/20 Unknown glipiZIDE [Glucotrol] 5 mg PO DAILY 02/25/20 02/25/20 Unknown metFORMIN [Glucophage] 500 mg PO DAILY 02/25/20 02/25/20 Unknown Irbesartan 150 mg PO DAILY 02/27/20 02/27/20 Unknown Metoprolol [Lopressor] 100 mg PO BID 02/27/20 02/27/20 Unknown Previous Rx's Medication Instructions Recorded Last Taken Type Hyoscyamine Subl [Levsin Sl 0.125 0.125 mg SL Q6HR PRN #20 tab 07/14/21 Unknown Rx TAB] Sucralfate [Carafate] 1 gm PO ACHS #120 tablet 07/14/21 Unknown Rx Allergies Allergy/AdvReac Type Severity Reaction Status Date / Time latex Allergy Hives Verified 04/26/22 14:04 Sulfa (Sulfonamide Allergy Swelling Verified 04/26/22 14:04 Antibiotics) ED Review of Systems ROS: Stated complaint: AMS/OD Other details as noted in HPI Comment: Unobtainable due to pts medical conditions ED Past Medical Hx - Past Medical History Hx Hypertension: Yes Hx Congestive Heart Failure: No Hx Diabetes: Yes Hx Renal Disease: No Hx Arthritis: No Hx Seizures: No Hx Asthma: Yes Hx COPD: No Hx Dementia: No Additional medical history: PANCREATITIS - Surgical History Hx Cholecystectomy: Yes Hx Appendectomy: No Additional Surgical History: BREAST LUMP REMOVALS / HYSTERECTOMY - Social History Smoking Status: Current Every Day Smoker - Medications Home Medications: Home Medications Medication Instructions Recorded Confirmed Last Taken Type Pepcid 20 mg PO DAILY 12/07/19 02/25/20 Unknown History AtorvaSTATin [Lipitor] 20 mg PO QHS 02/25/20 02/25/20 Unknown History Buspirone HCl [busPIRone] 15 mg PO BID 02/25/20 02/25/20 Unknown History Colchicine 0.6 mg PO BID 02/25/20 02/25/20 Unknown History Levothyroxine [Synthroid] 50 mcg PO QAM 02/25/20 02/25/20 Unknown History Oxycodone HCl [oxyCODONE] 10 mg PO BID PRN 02/25/20 02/25/20 Unknown History Pantoprazole [Protonix TAB] 40 mg PO DAILY 02/25/20 02/25/20 Unknown History Promethazine [Phenergan] 25 mg PO Q12H PRN 02/25/20 02/25/20 Unknown History allopurinoL [Zyloprim] 100 mg PO DAILY 02/25/20 02/25/20 Unknown History glipiZIDE [Glucotrol] 5 mg PO DAILY 02/25/20 02/25/20 Unknown History metFORMIN [Glucophage] 500 mg PO DAILY 02/25/20 02/25/20 Unknown History Irbesartan 150 mg PO DAILY 02/27/20 02/27/20 Unknown History Metoprolol [Lopressor] 100 mg PO BID 02/27/20 02/27/20 Unknown History Hyoscyamine Subl [Levsin Sl 0.125 0.125 mg SL Q6HR PRN #20 tab 07/14/21 Unknown Rx TAB] Sucralfate [Carafate] 1 gm PO ACHS #120 tablet 07/14/21 Unknown Rx ED Physical Exam - General Limitations: Altered Mental Status General appearance: obtunded - Head Head exam: Present: atraumatic, normocephalic, normal inspection - Eye Pupils: Present: miosis - ENT ENT exam: Present: normal exam, normal orophraynx, mucous membranes moist - Neck Neck exam: Present: normal inspection, full ROM. Absent: tenderness, men ingismus - Respiratory Respiratory exam: Present: normal lung sounds bilaterally - Cardiovascular Cardiovascular Exam: Present: regular rate, normal rhythm, normal heart sounds - GI/Abdominal GI/Abdominal exam: Present: soft, normal bowel sounds. Absent: distended, tenderness, guarding, rebound, rigid, organomegaly, mass, bruit, pulsatile mass, hernia - Extremities Exam Extremities exam: Present: normal inspection, full ROM, normal capillary refill. Absent: tenderness, pedal edema, joint swelling, calf tenderness - Back Exam Back exam: Present: normal inspection, full ROM. Absent: CVA tenderness (R), CVA tenderness (L) - Neurological Exam Neurological exam: Present: altered. Absent: motor sensory deficit - Psychiatric Psychiatric exam: Present: flat affect - Skin Skin exam: Present: warm, intact, normal color ED Course Vital Signs 04/26/22 04/26/22 04/26/22 14:01 15:42 15:45 Temperature 97.8 F Pulse Rate 79 85 Respiratory 18 12 Rate Blood Pressure 115/49 Blood Pressure 110/70 [Left] O2 Sat by Pulse 96 95 99 Oximetry 04/26/22 04/26/22 04/26/22 16:01 16:15 16:31 Temperature Pulse Rate 82 91 H 88 Respiratory 7 L 17 17 Rate Blood Pressure 94/65 97/63 106/75 Blood Pressure [Left] O2 Sat by Pulse 98 100 95 Oximetry 04/26/22 04/26/22 04/26/22 16:45 17:01 17:15 Temperature Pulse Rate 82 81 Respiratory 11 L 13 10 L Rate Blood Pressure 113/76 110/79 112/71 Blood Pressure [Left] O2 Sat by Pulse 93 89 100 Oximetry 04/26/22 04/26/22 04/26/22 17:31 17:45 18:01 Temperature Pulse Rate 75 80 79 Respiratory 8 L 13 9 L Rate Blood Pressure 105/70 112/71 121/67 Blood Pressure [Left] O2 Sat by Pulse 100 100 100 Oximetry 04/26/22 04/26/22 04/26/22 18:15 18:31 18:51 Temperature Pulse Rate 79 75 Respiratory 9 L 8 L 10 L Rate Blood Pressure 89/64 99/75 Blood Pressure [Left] O2 Sat by Pulse 100 100 Oximetry 04/26/22 19:55 Temperature 97.9 F Pulse Rate 91 H Respiratory 18 Rate Blood Pressure Blood Pressure 114/75 [Left] O2 Sat by Pulse 95 Oximetry ED Medical Decision Making - Lab Data Result diagrams: 04/26/22 15:54 04/26/22 15:54 - EKG Data -: EKG Interpreted by Me EKG shows normal: sinus rhythm Rate: normal - EKG Data Interpretation: no acute changes - Medical Decision Making Patient is 56 years old female with history of schizophrenia. Patient brought to the emergency room via EMS from home for evaluation of possible overdose. Family reported that patient took 15 tablets of oxycodone and also has been drinking alcohol. Upon arrival to the ER patient is obtunded and only responsive to sternal rub and painful stimulation. EMS reported that patient responded 0.4 mg of Narcan. I reviewed patient previous record and patient had a suicidal attempt by overdosing on medication in 2019. Patient is unable to answer any questions at this moment. I added 2 mg of Narcan, Zofran and 1 L of normal saline. Patient required multiple doses of Narcan in the ER. Labs reviewed and is unremarkable except for positive UDS for opiates. Patient blood pressure initially was 80/42 improved with 2 L of fluid to 116/73. Patient reassessed by me several times in the ER. After 5 hours since the last Narcan, patient is alert, oriented x3 in no acute distress. Tylenol level repeated and it normal. Patient is medically cleared to be evaluated by psychiatric team. Critical care attestation.: If time is entered above; I have spent that time in minutes in the direct care of this critically ill patient, excluding procedure time. ED Disposition Clinical Impression: ETOH abuse, Intentional drug overdose Disposition: [address] [place] [address] Is pt being admited?: No Condition: Stable
[2022-04-26 16:07] LABS: Hematocrit 36.4 % (30.3-42.9); Hemoglobin 11.5 gm/dl (10.1-14.3); Mean Corpuscular HGB Conc 32 % (30-34); Mean Corpuscular Volume 88 fl (79-97); Platelet Count 293 K/mm3 (140-440); Red Blood Count 4.14 M/mm3 (3.65-5.03); Red Cell Distribution Width 14.2 % (13.2-15.2)
[2022-04-26] MEDS ORDERED: SODIUM CHLORIDE 0.9% 1000 ML 1,000 ML IV ONE (16:30)
[2022-04-26] MEDS ORDERED: NALOXONE 2 MG/2 ML INJ IV ONE (16:30)
[2022-04-26] MEDS ORDERED: ONDANSETRON 4 MG/2 ML INJ IV ONE (16:30)
[2022-04-26 16:54] LABS: Albumin 4.2 g/dL (3.9-5); Calcium 8.7 mg/dL (8.4-10.2)
[2022-04-26] MEDS ORDERED: NALOXONE 2 MG/2 ML 2 MG in SODIUM CHLORIDE 0.9% 500 ML 500 ML IV ONE (17:04)
[2022-04-26 18:16] LABS: Bilirubin,Urine NEG (Negative); Blood,Urine NEG (Negative); Color,Urine Yellow (Yellow)
[2022-04-26 18:33] LABS: Bacteria,Urine 1+ /HPF (Negative); RBC,Urine < 1.0 /HPF (0.0-6.0)
[2022-04-26 18:54] LABS: Amphetamine Screen,Urine Negative; Benzodiazepines Screen,Urine Negative; Cannabinoid Screen,Urine Negative; Cocaine Screen,Urine Negative; Methadone Screen,Urine Negative
[2022-04-26 19:12] LABS: Monocytes % (Manual) 0 % (0.0-7.3); Total Cells Counted 100
[2022-04-26 19:13] LABS: Platelet Estimate Consistent w Auto; RBC Morphology Normal
[2022-04-26 19:41] LABS: Opiate Screen,Urine Positive
[2022-04-27 11:00] LABS: Calcium 8.4 mg/dL (8.4-10.2)
[2022-04-27 11:02] LABS: Albumin 4.1 g/dL (3.9-5); Calcium 8.3 mg/dL (8.4-10.2)
[2022-04-27 12:21] LABS: Calcium 8.1 mg/dL (8.4-10.2)
[2022-04-27] MEDS ORDERED: SODIUM POLYSTYRENE 15 GM/60 ML ORAL LIQD PO ONE (12:57)
[2022-04-27] MEDS ORDERED: SODIUM BICARB 8.4% 50 MEQ/50 ML SYRINGE IV ONE (12:57)
[2022-04-27] MEDS ORDERED: SODIUM CHLORIDE 0.9% 1000 ML 1,000 ML IV ONE ×2 (12:59)
--- NOTE | 2022-04-27 13:26 | Consultation ---
History of Present Illness - Reason for Consult Consult date: 04/27/22 Reason for consult: Overdose - History of Present Psychiatric Illness HPI: Patient is 56 years old female with history of schizophrenia. Patient brought to the emergency room via EMS from home for evaluation of possible overdose. Family reported that patient took 15 tablets of oxycodone and also has been drinking alcohol. Upon arrival to the ER patient is obtunded and only responsive to sternal rub and painful stimulation. EMS reported that patient responded 0.4 mg of Narcan. I reviewed patient previous record and patient had a suicidal attempt by overdosing on medication in 2019. Patient is unable to answer any questions at this moment. I added 2 mg of Narcan, Zofran and 1 L of normal saline. The patient was seen today. She presented to ER after family states she over dosed on oxycodone. During my evaluation, the patient is a/o x 2. She has poor insight. She states she is unsure of why she was admitted into the hospital. The patient does not recall trying to kill herself, but states that she has been very depressed. When asking was she suicidal, she replies "'no, I'm not suicidal." The patient also denies homicidal thoughts. The patient also states she drinks a bottle of alcohol a day. She denies hallucinations. Will start medication and recommend acute psychiatric inpatient treatment to stabilize the patient on her meds. PAST PSYCHIATRIC HISTORY Diagnoses: schizophrenia Suicide attempts or Self-harm behavior: Denies Prior psychiatric hospitalizations: Yes Substance Abuse history: Alcohol Previous psychiatric medications tried: wellbutrin Outpatient treatment: Denies PAST MEDICAL HISTORY: none reported Family Psychiatric History: None reported or documented SOCIAL HISTORY Marital Status: Living Arrangements: Lives with spouse Employment Status: Disabled Access to guns/weapons: Denies Education: History of Abuse: none reported Legal History: none reported REVIEW OF SYSTEMS Constitutional: Negative for weight loss ENT: Negative for stridor Respiratory: Negative for cough or hemoptysis All other systems reviewed and are negative MENTAL STATUS EXAMINATION General Appearance and Behavior: Age appropriate, good hygiene, wearing appropriate clothes, fair eye contact, cooperative polite with questioning. Cooperation: Participating/engaged, guarded Psychomotor Behavior: unremarkable and within normal limits Mood: Depressed Affect and affective range: congruent with mood Thought Process: Goal directed Thought Content: Denies Speech: Normal volume, Regular rate and rhythm, Suicidal Ideation: Yes Homicidal Ideation: Denies Hallucinations: Denies Delusions: None Impulse Control: Normal Insight and Judgment: Limited insight and judgment, Memory: Normal, Attention: Normal, Orientation: Alert, oriented, Assessment and Plan (1) Major Depressive Disorder (2) ETOH Dependence Treatment 1013 Lexapro 10mg po daily Abilify 10mg po daily Trazodone 50g po qhs CIWA Sitter: Per primary Medical: Per primary Disposition: recommend acute inpatient psychiatric treatment. Will follow. Thanks Case staffed with Dr. Powell Medications and Allergies Allergies Allergy/AdvReac Type Severity Reaction Status Date / Time latex Allergy Hives Verified 04/26/22 14:04 Sulfa (Sulfonamide Allergy Swelling Verified 04/26/22 14:04 Antibiotics) Home Medications Medication Instructions Recorded Confirmed Last Taken Type Pepcid 20 mg PO DAILY 12/07/19 02/25/20 Unknown History AtorvaSTATin [Lipitor] 20 mg PO QHS 02/25/20 02/25/20 Unknown History Buspirone HCl [busPIRone] 15 mg PO BID 02/25/20 02/25/20 Unknown History Colchicine 0.6 mg PO BID 02/25/20 02/25/20 Unknown History Levothyroxine [Synthroid] 50 mcg PO QAM 02/25/20 02/25/20 Unknown History Oxycodone HCl [oxyCODONE] 10 mg PO BID PRN 02/25/20 02/25/20 Unknown History Pantoprazole [Protonix TAB] 40 mg PO DAILY 02/25/20 02/25/20 Unknown History Promethazine [Phenergan] 25 mg PO Q12H PRN 02/25/20 02/25/20 Unknown History allopurinoL [Zyloprim] 100 mg PO DAILY 02/25/20 02/25/20 Unknown History glipiZIDE [Glucotrol] 5 mg PO DAILY 02/25/20 02/25/20 Unknown History metFORMIN [Glucophage] 500 mg PO DAILY 02/25/20 02/25/20 Unknown History Irbesartan 150 mg PO DAILY 02/27/20 02/27/20 Unknown History Metoprolol [Lopressor] 100 mg PO BID 02/27/20 02/27/20 Unknown History Hyoscyamine Subl [Levsin Sl 0.125 0.125 mg SL Q6HR PRN #20 tab 07/14/21 Unknown Rx TAB] Sucralfate [Carafate] 1 gm PO ACHS #120 tablet 07/14/21 Unknown Rx Active Meds: Active Medications Calcium Gluconate 1,000 mg/ (Sodium Chloride) 110 mls @ 660 mls/hr IV ONCE ONE Stop: 04/27/22 13:06 Sodium Chloride (Nacl 0.9% 1000 Ml) 1,000 mls @ 999 mls/hr IV ONCE ONE Stop: 04/27/22 13:59 Sodium Chloride (Nacl 0.9% 1000 Ml) 1,000 mls @ 999 mls/hr IV ONCE ONE Stop: 04/27/22 13:59 Mental Status Exam - Vital signs Last Vital Signs Temp 97.9 F 04/26/22 19:55 Pulse 81 04/27/22 12:45 Resp 12 04/27/22 12:45 BP 92/60 04/27/22 12:45 Pulse Ox 98 04/27/22 12:45 Results Result Diagrams: 04/26/22 15:54 04/27/22 11:50 Abnormal lab results 04/26/22 04/26/22 04/26/22 Range/Units 15:54 15:54 15:54 Seg Neuts % (Manual) 24.0 L (40.0-70.0) % Lymphocytes % (Manual) 71.0 H (13.4-35.0) % Basophils % (Manual) 2.0 H (0.0-1.8) % Lymphocytes # (Manual) 7.4 H (1.2-5.4) K/mm3 Basophils # (Manual) 0.2 H (0.0-0.1) K/mm3 Sodium 136 L (137-145) mmol/L Potassium (3.6-5.0) mmol/L Carbon Dioxide 20 L (22-30) mmol/L BUN 38 H (7-17) mg/dL Creatinine 2.5 H (0.6-1.2) mg/dL Glucose 159 H (65-100) mg/dL Calcium (8.4-10.2) mg/dL AST 178 H (5-40) units/L ALT 92 H (7-56) units/L Alkaline Phosphatase 206 H (35-129) units/L Salicylates < 0.3 L (2.8-20.0) mg/dL Acetaminophen (10.0-30.0) ug/mL Plasma/Serum Alcohol (0-0.07) % 04/26/22 04/26/22 04/26/22 Range/Units 15:54 15:54 19:02 Seg Neuts % (Manual) (40.0-70.0) % Lymphocytes % (Manual) (13.4-35.0) % Basophils % (Manual) (0.0-1.8) % Lymphocytes # (Manual) (1.2-5.4) K/mm3 Basophils # (Manual) (0.0-0.1) K/mm3 Sodium (137-145) mmol/L Potassium (3.6-5.0) mmol/L Carbon Dioxide (22-30) mmol/L BUN (7-17) mg/dL Creatinine (0.6-1.2) mg/dL Glucose (65-100) mg/dL Calcium (8.4-10.2) mg/dL AST (5-40) units/L ALT (7-56) units/L Alkaline Phosphatase (35-129) units/L Salicylates (2.8-20.0) mg/dL Acetaminophen 5.0 L 5.0 L (10.0-30.0) ug/mL Plasma/Serum Alcohol 0.27 H (0-0.07) % 04/27/22 04/27/22 04/27/22 Range/Units 10:32 10:32 11:50 Seg Neuts % (Manual) (40.0-70.0) % Lymphocytes % (Manual) (13.4-35.0) % Basophils % (Manual) (0.0-1.8) % Lymphocytes # (Manual) (1.2-5.4) K/mm3 Basophils # (Manual) (0.0-0.1) K/mm3 Sodium 136 L 135 L (137-145) mmol/L Potassium 5.9 H D 5.9 H 5.9 H (3.6-5.0) mmol/L Carbon Dioxide 20 L 20 L 17 L (22-30) mmol/L BUN 47 H 46 H 46 H (7-17) mg/dL Creatinine 3.8 H D 3.9 H 3.9 H (0.6-1.2) mg/dL Glucose 181 H 179 H 182 H (65-100) mg/dL Calcium 8.3 L 8.1 L (8.4-10.2) mg/dL AST 79 H (5-40) units/L ALT 71 H (7-56) units/L Alkaline Phosphatase 182 H (35-129) units/L Salicylates (2.8-20.0) mg/dL Acetaminophen (10.0-30.0) ug/mL Plasma/Serum Alcohol (0-0.07) % All other labs normal.
--- NOTE | 2022-04-27 13:33 | Event Note ---
Date: 04/27/22 Labs drawn this morning showed worsening creatinine and hyperkalemia at 5.9. Patient was subsequently be admitted to the hospital. Case was discussed with director financial services Dr. Sumner 13:33Care transferred to hospitalist (Dr. Burnett)
[2022-04-27] MEDS ORDERED: oxyCODONE /ACETAMINOPHEN 5-325MG TAB PO PRN (13:35)
[2022-04-27] MEDS ORDERED: HYDROmorphone 0.5 MG/0.5 ML INJ IV PRN (13:35)
[2022-04-27] MEDS ORDERED: ALBUTEROL 2.5 MG/3 ML NEBU IH PRN (13:35)
[2022-04-27] MEDS ORDERED: ACETAMINOPHEN 325 MG TAB PO PRN (13:35)
[2022-04-27] MEDS ORDERED: ONDANSETRON 4 MG/2 ML INJ IV PRN (13:35)
[2022-04-27] MEDS ORDERED: LORazepam 2 MG/ML VIAL IV PRN (13:36)
[2022-04-27] MEDS ORDERED: chlordiazePOXIDE 25 MG CAP PO PRN (13:36)
[2022-04-27] MEDS ORDERED: PROMETHAZINE 25 MG TAB PO PRN (13:38)
[2022-04-27] MEDS ORDERED: HYOSCYAMINE SUBL 0.125 MG TAB SL PRN (13:38)
--- NOTE | 2022-04-27 13:40 | History and Physical Report ---
History of Present Illness Chief complaint: Confused History of present illness: 56 YO Female with HTN, HLD, GERD, Gout, Hypothyroidism, PUD, Schizophrenia, DM, Mild Intermittent Asthma, Nicotine Dependence presents ED for evaluation. Patient is lethargic with diminished cognition at the time my evaluation and is unable to provide detailed history. Patient history taken EMS staff, ED staff, as well as patient daughter who was made available by telephone for interview. Patient was found to be obtunded after intentional ingestion of 15 oxycodone tablets and ingestion of alcohol. EMS was notified and upon arrival the patient was found to be in distress and subsequently treated with Narcan and transported to [facility] for further care and evaluation of the aforementioned symptoms. The patient was seen and evaluated in the emergency department. All lab and imaging studies reviewed. Consult placed to hospitalist service on 04/27/2022. At the time my evaluation the patient was found to be tremulous on exam, agitated, with abdominal cramping, disheveled, tremulous which is consistent with alcohol withdrawal syndrome, as well as metabolic encephalopathy, ADDISON with ATN, hyponatremia, and intentional drug overdose. [address] Patient admitted to medical floor and initiated on CIWA protocol. Nephrology team consulted in ED. Mental health team consulted in ED. Patient is confused with diminished cognition at the time my evaluation but has a positive gag reflex and is able to protect her airway without difficulty. No reports of fever, chills, chest pain, palpitation, adductive cough, skin rash, recent contact, known exposure to COVID-19. Prior admission on 02/26/2020 reviewed. All medication listed at time of admission has been reconciled. Advanced care planning conducted in ED. Past History Past Medical History: diabetes, GERD, hypertension, hyperlipidemia, hypothyroidism, other (See HPI) Past Surgical History: cholecystectomy, hysterectomy Social history: smoking, alcohol abuse Family history: diabetes, hypertension Medications and Allergies Allergies Allergy/AdvReac Type Severity Reaction Status Date / Time latex Allergy Hives Verified 04/26/22 14:04 Sulfa (Sulfonamide Allergy Swelling Verified 04/26/22 14:04 Antibiotics) Home Medications Medication Instructions Recorded Confirmed Last Taken Type Pepcid 20 mg PO DAILY 12/07/19 02/25/20 Unknown History AtorvaSTATin [Lipitor] 20 mg PO QHS 02/25/20 02/25/20 Unknown History Buspirone HCl [busPIRone] 15 mg PO BID 02/25/20 02/25/20 Unknown History Colchicine 0.6 mg PO BID 02/25/20 02/25/20 Unknown History Levothyroxine [Synthroid] 50 mcg PO QAM 02/25/20 02/25/20 Unknown History Oxycodone HCl [oxyCODONE] 10 mg PO BID PRN 02/25/20 02/25/20 Unknown History Pantoprazole [Protonix TAB] 40 mg PO DAILY 02/25/20 02/25/20 Unknown History Promethazine [Phenergan] 25 mg PO Q12H PRN 02/25/20 02/25/20 Unknown History allopurinoL [Zyloprim] 100 mg PO DAILY 02/25/20 02/25/20 Unknown History glipiZIDE [Glucotrol] 5 mg PO DAILY 02/25/20 02/25/20 Unknown History metFORMIN [Glucophage] 500 mg PO DAILY 02/25/20 02/25/20 Unknown History Irbesartan 150 mg PO DAILY 02/27/20 02/27/20 Unknown History Metoprolol [Lopressor] 100 mg PO BID 02/27/20 02/27/20 Unknown History Hyoscyamine Subl [Levsin Sl 0.125 0.125 mg SL Q6HR PRN #20 tab 07/14/21 Unknown Rx TAB] Sucralfate [Carafate] 1 gm PO ACHS #120 tablet 07/14/21 Unknown Rx Active Meds: Active Medications Acetaminophen (Acetaminophen 325 Mg Tab) 650 mg PO Q4H PRN PRN Reason: Pain MILD(1-3)/Fever >100.5/NINO Albuterol (Albuterol 2.5 Mg/3 Ml Nebu) 2.5 mg IH Q4HRT PRN PRN Reason: Shortness Of Breath Allopurinol (Allopurinol 100 Mg Tab) 100 mg PO DAILY [facility] Aripiprazole (Aripiprazole 10 Mg Tab) 10 mg PO QDAY [facility] Atorvastatin Calcium (Atorvastatin 20 Mg Tab) 20 mg PO QHS [facility] Chlordiazepoxide HCl (Chlordiazepoxide 25 Mg Cap) 50 mg PO Q1HR PRN PRN Reason: CIWA-Ar 8-15 Escitalopram Oxalate (Escitalopram 10 Mg Tab) 10 mg PO QDAY [facility] Hydromorphone HCl (Hydromorphone 0.5 Mg/0.5 Ml Inj) 0.5 mg IV Q23H PRN PRN Reason: Pain , Severe (7-10) Hyoscyamine (Hyoscyamine Subl 0.125 Mg Tab) 0.125 mg SL Q6HR PRN PRN Reason: Pain , Severe (7-10) CALC GLUCONATE 1GM/NS 100 ML (Calcium Gluonate/Ns 1,000mg/100ml) 1 gm in 100 mls @ 600 mls/hr IV ONCE ONE Stop: 04/27/22 14:09 Sodium Chloride (Nacl 0.9% 1000 Ml) 1,000 mls @ 999 mls/hr IV ONCE ONE Stop: 04/27/22 13:59 Sodium Chloride (Nacl 0.9% 1000 Ml) 1,000 mls @ 999 mls/hr IV ONCE ONE Stop: 04/27/22 13:59 Levothyroxine Sodium (Levothyroxine 50 Mcg Tab) 50 mcg PO QAM [facility] Lorazepam (Lorazepam 2 Mg/Ml Vial) 2 mg IV Q4H PRN PRN Reason: CIWA-Ar 16-25 Miscellaneous Medication (Buspirone Hcl [Buspirone]) 15 mg PO BID [facility] Miscellaneous Medication (Colchicine [Colchicine]) 0.6 mg PO BID [facility] Miscellaneous Medication (Pepcid) 20 mg PO DAILY [facility] Ondansetron HCl (Ondansetron 4 Mg/2 Ml Inj) 4 mg IV Q8H PRN PRN Reason: Nausea And Vomiting Oxycodone/Acetaminophen (Oxycodone /Acetaminophen 5-325mg Tab) 1 tab PO Q16H PRN PRN Reason: Pain, Moderate (4-6) Pantoprazole Sodium (Pantoprazole 40 Mg Tab) 40 mg PO DAILY [facility] Promethazine HCl (Promethazine 25 Mg Tab) 25 mg PO Q12H PRN PRN Reason: Nausea Sodium Chloride (Sodium Chloride 0.9% 10 Ml Flush Syringe) 10 ml IV BID [facility] Sodium Chloride (Sodium Chloride 0.9% 10 Ml Flush Syringe) 10 ml IV PRN PRN PRN Reason: LINE FLUSH Sucralfate (Sucralfate 1 Gm Tab) 1 gm PO ACHS [facility] Trazodone HCl (Trazodone 50 Mg Tab) 50 mg PO QHS [facility] Review of Systems ROS unobtainable: due to mental status Exam - Constitutional Vitals: Temp Pulse Resp BP Pulse Ox 97.9 F 81 12 92/60 98 04/26/22 19:55 04/27/22 12:45 04/27/22 12:45 04/27/22 12:45 04/27/22 12:45 General appearance: Present: mild distress - EENT Eyes: Present: PERRL ENT: hearing intact, clear oral mucosa - Neck Neck: Present: supple, normal ROM - Respiratory Respiratory effort: normal Respiratory: bilateral: diminished - Cardiovascular Rhythm: other (Tachycardic) Heart Sounds: Present: S1 & S2. Absent: rub, click - Extremities Extremities: pulses symmetrical, No edema Peripheral Pulses: within normal limits - Abdominal General gastrointestinal: Present: soft, non-tender, non-distended, normal bowel sounds Female genitourinary: Present: normal - Integumentary Integumentary: Present: dry, clammy, decreased turgor - Musculoskeletal Musculoskeletal: generalized weakness - Psychiatric Psychiatric: no appropriate mood/affect, no intact judgment & insight, no memory intact, agitated - Neurologic Neurologic: CNII-XII intact, no focal deficits, moves all extremities, no gait normal Results - Labs CBC & Chem 7: 04/26/22 15:54 04/27/22 11:50 Labs: Abnormal lab results 04/26/22 04/26/22 04/26/22 Range/Units 15:54 15:54 15:54 Seg Neuts % (Manual) 24.0 L (40.0-70.0) % Lymphocytes % (Manual) 71.0 H (13.4-35.0) % Basophils % (Manual) 2.0 H (0.0-1.8) % Lymphocytes # (Manual) 7.4 H (1.2-5.4) K/mm3 Basophils # (Manual) 0.2 H (0.0-0.1) K/mm3 Sodium 136 L (137-145) mmol/L Potassium (3.6-5.0) mmol/L Carbon Dioxide 20 L (22-30) mmol/L BUN 38 H (7-17) mg/dL Creatinine 2.5 H (0.6-1.2) mg/dL Glucose 159 H (65-100) mg/dL Calcium (8.4-10.2) mg/dL AST 178 H (5-40) units/L ALT 92 H (7-56) units/L Alkaline Phosphatase 206 H (35-129) units/L Salicylates < 0.3 L (2.8-20.0) mg/dL Acetaminophen (10.0-30.0) ug/mL Plasma/Serum Alcohol (0-0.07) % 04/26/22 04/26/22 04/26/22 Range/Units 15:54 15:54 19:02 Seg Neuts % (Manual) (40.0-70.0) % Lymphocytes % (Manual) (13.4-35.0) % Basophils % (Manual) (0.0-1.8) % Lymphocytes # (Manual) (1.2-5.4) K/mm3 Basophils # (Manual) (0.0-0.1) K/mm3 Sodium (137-145) mmol/L Potassium (3.6-5.0) mmol/L Carbon Dioxide (22-30) mmol/L BUN (7-17) mg/dL Creatinine (0.6-1.2) mg/dL Glucose (65-100) mg/dL Calcium (8.4-10.2) mg/dL AST (5-40) units/L ALT (7-56) units/L Alkaline Phosphatase (35-129) units/L Salicylates (2.8-20.0) mg/dL Acetaminophen 5.0 L 5.0 L (10.0-30.0) ug/mL Plasma/Serum Alcohol 0.27 H (0-0.07) % 04/27/22 04/27/22 04/27/22 Range/Units 10:32 10:32 11:50 Seg Neuts % (Manual) (40.0-70.0) % Lymphocytes % (Manual) (13.4-35.0) % Basophils % (Manual) (0.0-1.8) % Lymphocytes # (Manual) (1.2-5.4) K/mm3 Basophils # (Manual) (0.0-0.1) K/mm3 Sodium 136 L 135 L (137-145) mmol/L Potassium 5.9 H D 5.9 H 5.9 H (3.6-5.0) mmol/L Carbon Dioxide 20 L 20 L 17 L (22-30) mmol/L BUN 47 H 46 H 46 H (7-17) mg/dL Creatinine 3.8 H D 3.9 H 3.9 H (0.6-1.2) mg/dL Glucose 181 H 179 H 182 H (65-100) mg/dL Calcium 8.3 L 8.1 L (8.4-10.2) mg/dL AST 79 H (5-40) units/L ALT 71 H (7-56) units/L Alkaline Phosphatase 182 H (35-129) units/L Salicylates (2.8-20.0) mg/dL Acetaminophen (10.0-30.0) ug/mL Plasma/Serum Alcohol (0-0.07) % Assessment and Plan - Patient Problems (1) Alcohol withdrawal delirium Current Visit: Yes Status: Acute Plan to address problem: Alcohol withdrawal protocol: CIWA protocol, banana bag, thiamine, folic acid, multivitamin daily, neuro check, seizure precaution, aspiration precaution, fall precautions. (2) Acute kidney injury (ADDISON) with acute tubular necrosis (ATN) Current Visit: Yes Status: Acute Plan to address problem: IV fluid resuscitation therapy, BMP, repeat BMP in a.m. to monitor serum creatinine as well as GFR, ultrasound, urine electrolytes, nephrology team consulted in ED. (3) Drug overdose, intentional Current Visit: Yes Status: Acute Qualifiers: Encounter type: initial encounter Qualified Code(s): T50.902A - Poisoning by unspecified drugs, medicaments and biological substances, intentional self- harm, initial encounter Plan to address problem: Mental health team consulted, [address], supportive care. (4) Alcohol dependence Current Visit: Yes Status: Acute Qualifiers: Complication of substance-induced condition: with delirium Plan to address problem: Thiamine, folic acid, multivitamin daily, CIWA protocol, IV fluid resuscitation therapy, supportive care. (5) Nicotine dependence Current Visit: Yes Status: Acute Qualifiers: Nicotine product type: cigarettes Substance use status: in withdrawal Qualified Code(s): F17.213 - Nicotine dependence, cigarettes, with withdrawal Plan to address problem: Smoking cessation counseling, supportive care, behavior change counseling, +15 minutes. (6) Major depression Current Visit: Yes Status: Acute Qualifiers: Major depression episode severity: unspecified Plan to address problem: Mental health team consulted, continue medical management, supportive care. (7) DVT prophylaxis Current Visit: Yes Status: Acute Plan to address problem: SCD to bilateral lower extremities while in bed, prophylactic anticoagulation. (8) Advance care planning Current Visit: Yes Status: Acute Plan to address problem: Disease education done, care plan discussed, diagnosis discussed, prognosis discussed, patient is full code. Patient daughter Lilian Duff [phone] acknowledges understanding and agreement with care plan, +30 minutes. (9) Preventative health care Current Visit: Yes Status: Acute Plan to address problem: Patient family counseled regarding alcohol cessation, inpatient psychiatric care, outpatient follow-up with alcohol Anonymous, drug dependence counseling, and outpatient follow-up with primary care physician for all age and risk factor appropriate screening test, +30 minutes.
[2022-04-27] MEDS ORDERED: THIAMINE 100 MG, FOLIC ACID 1 MG, MULTIPLE VITAMIN INJ, ADULT 10 ML in SODIUM CHLORIDE ... IV SCH (13:42)
[2022-04-27] MEDS ORDERED: MULTIVITAMINS ,THERAPEUTIC TAB PO SCH (13:42)
[2022-04-27] MEDS ORDERED: THIAMINE 100 MG TAB PO SCH (13:42)
--- NOTE | 2022-04-27 13:59 | Consultation ---
History of Present Illness - Reason for Consult Consult date: 04/27/22 acute renal failure, hyperkalemia, metabolic acidosis - History of Present Illness 56 year old woman with HTN, HLD, GERD, Gout, Hypothyroidism, PUD, Schizophrenia, DM, Mild Intermittent Asthma, Nicotine Dependence presented to ED for lethargy, found to have intentional ingestion of 15 oxycodone tablets and ingestion of al cohol. Initially noted to be tremulous on exam, agitated, with abdominal cramping, disheveled, with metabolic encephalopathy, ADDISON with ATN, hyponatremia, and intentional drug overdose. At time of consult, patient appears drowsy but more alert. She denies any known kidney disease but was actually seen by [facility] in 2012. She was to have a new patient appointment for CKD today with myself as per PCP, noted to have creatinine 1.5 on labs in February 2022. Admitted for overdose of opioid and alcohol use. Denies any ethyl glycol, methanol use or other drugs. Past History Past Medical History: diabetes, GERD, hypertension, hyperlipidemia, hypothyroidism, other (See HPI) Past Surgical History: cholecystectomy, hysterectomy Social history: smoking, alcohol abuse Family history: diabetes, hypertension Medications and Allergies Allergies Allergy/AdvReac Type Severity Reaction Status Date / Time latex Allergy Hives Verified 04/26/22 14:04 Sulfa (Sulfonamide Allergy Swelling Verified 04/26/22 14:04 Antibiotics) Home Medications Medication Instructions Recorded Confirmed Last Taken Type Pepcid 20 mg PO DAILY 12/07/19 02/25/20 Unknown History AtorvaSTATin [Lipitor] 20 mg PO QHS 02/25/20 02/25/20 Unknown History Buspirone HCl [busPIRone] 15 mg PO BID 02/25/20 02/25/20 Unknown History Colchicine 0.6 mg PO BID 02/25/20 02/25/20 Unknown History Levothyroxine [Synthroid] 50 mcg PO QAM 02/25/20 02/25/20 Unknown History Oxycodone HCl [oxyCODONE] 10 mg PO BID PRN 02/25/20 02/25/20 Unknown History Pantoprazole [Protonix TAB] 40 mg PO DAILY 02/25/20 02/25/20 Unknown History Promethazine [Phenergan] 25 mg PO Q12H PRN 02/25/20 02/25/20 Unknown History allopurinoL [Zyloprim] 100 mg PO DAILY 02/25/20 02/25/20 Unknown History glipiZIDE [Glucotrol] 5 mg PO DAILY 02/25/20 02/25/20 Unknown History metFORMIN [Glucophage] 500 mg PO DAILY 02/25/20 02/25/20 Unknown History Irbesartan 150 mg PO DAILY 02/27/20 02/27/20 Unknown History Metoprolol [Lopressor] 100 mg PO BID 02/27/20 02/27/20 Unknown History Hyoscyamine Subl [Levsin Sl 0.125 0.125 mg SL Q6HR PRN #20 tab 07/14/21 Unknown Rx TAB] Sucralfate [Carafate] 1 gm PO ACHS #120 tablet 07/14/21 Unknown Rx Active Meds: Active Medications Acetaminophen (Acetaminophen 325 Mg Tab) 650 mg PO Q4H PRN PRN Reason: Pain MILD(1-3)/Fever >100.5/NINO Albuterol (Albuterol 2.5 Mg/3 Ml Nebu) 2.5 mg IH Q4HRT PRN PRN Reason: Shortness Of Breath Allopurinol (Allopurinol 100 Mg Tab) 100 mg PO DAILY [facility] Aripiprazole (Aripiprazole 10 Mg Tab) 10 mg PO QDAY [facility] Atorvastatin Calcium (Atorvastatin 20 Mg Tab) 20 mg PO QHS [facility] Chlordiazepoxide HCl (Chlordiazepoxide 25 Mg Cap) 50 mg PO Q1HR PRN PRN Reason: CIWA-Ar 8-15 Escitalopram Oxalate (Escitalopram 10 Mg Tab) 10 mg PO QDAY [facility] Folic Acid (Folic Acid 1 Mg Tab) 1 mg PO QDAY [facility] Hydromorphone HCl (Hydromorphone 0.5 Mg/0.5 Ml Inj) 0.5 mg IV Q23H PRN PRN Reason: Pain , Severe (7-10) Hyoscyamine (Hyoscyamine Subl 0.125 Mg Tab) 0.125 mg SL Q6HR PRN PRN Reason: STOMACH Pain , Severe (7-10) CALC GLUCONATE 1GM/NS 100 ML (Calcium Gluonate/Ns 1,000mg/100ml) 1 gm in 100 mls @ 600 mls/hr IV ONCE ONE Stop: 04/27/22 14:09 Sodium Chloride (Nacl 0.9% 1000 Ml) 1,000 mls @ 999 mls/hr IV ONCE ONE Stop: 04/27/22 13:59 Sodium Chloride (Nacl 0.9% 1000 Ml) 1,000 mls @ 999 mls/hr IV ONCE ONE Stop: 04/27/22 13:59 Thiamine HCl 100 mg/ Folic Acid 1 mg/ Multivitamins/Minerals 10 ml/ Sodium Chloride 1,011.2 mls @ 250 mls/hr IV ONCE [facility] Levothyroxine Sodium (Levothyroxine 50 Mcg Tab) 50 mcg PO QAM [facility] Lorazepam (Lorazepam 2 Mg/Ml Vial) 2 mg IV Q4H PRN PRN Reason: CIWA-Ar 16-25 Miscellaneous Medication (Buspirone Hcl [Buspirone]) 15 mg PO BID [facility] Miscellaneous Medication (Colchicine [Colchicine]) 0.6 mg PO BID [facility] Miscellaneous Medication (Pepcid) 20 mg PO DAILY [facility] Multivitamins (Multivitamins ,Therapeutic Tab) 1 each PO ONCE ONE Stop: 04/27/22 13:43 Ondansetron HCl (Ondansetron 4 Mg/2 Ml Inj) 4 mg IV Q8H PRN PRN Reason: Nausea And Vomiting Oxycodone/Acetaminophen (Oxycodone /Acetaminophen 5-325mg Tab) 1 tab PO Q16H PRN PRN Reason: Pain, Moderate (4-6) Pantoprazole Sodium (Pantoprazole 40 Mg Tab) 40 mg PO DAILY [facility] Promethazine HCl (Promethazine 25 Mg Tab) 25 mg PO Q12H PRN PRN Reason: Nausea Sodium Chloride (Sodium Chloride 0.9% 10 Ml Flush Syringe) 10 ml IV BID [facility] Sodium Chloride (Sodium Chloride 0.9% 10 Ml Flush Syringe) 10 ml IV PRN PRN PRN Reason: LINE FLUSH Sucralfate (Sucralfate 1 Gm Tab) 1 gm PO ACHS [facility] Thiamine HCl (Thiamine 100 Mg Tab) 100 mg PO ONCE ONE Stop: 04/27/22 13:43 Trazodone HCl (Trazodone 50 Mg Tab) 50 mg PO QHS [facility] Review of Systems All systems: negative (as per HPI) Exam - Vital Signs Vital signs: Vital Signs Temp Pulse Resp BP Pulse Ox 97.8 F 79 18 110/70 96 04/26/22 14:01 04/26/22 14:01 04/26/22 14:01 04/26/22 14:01 04/26/22 14:01 - General Appearance General appearance: moderate distress, fatigue, frail, anxious EENT: mucous membranes dry Neck: Present: neck supple, trachea midline Respiratory: Clear to Ascultation Heart: tachycardia Gastrointestinal: Present: normoactive bowel sounds Integumentary: no rash, warm and dry Neurologic: no focal deficit, alert and oriented x3 Psychiatric: mood/affect appropriate Results - Lab Results 04/26/22 15:54 04/27/22 11:50 Most recent lab results Calcium 8.1 mg/dL (8.4-10.2) L 04/27/22 11:50 Assessment and Plan # Acute Kidney Injury in CKD 3: creatinine 1.5 in February 2022, now 2.5->3.8->3.9, suspect tubular injury in setting of relative hypotension, overall illness, drug abuse - recommend aggressive supportive measures including IVF (started NS at 100cc/hr), IV HCO3 prn (relatively stable) - agree medical K management - stop colchicine which can be nephrotoxic - support BP, MAP>70 if needed, BP stable - check ethyl glycol, methanol as well - will need renal replacement therapy if not improving, did discuss with patient today, unclear if comprehending severity of ADDISON - agree with CIWA protocol - check serologies, urinalysis fairly bland - check renal ultrasound - strict Is/Os # Alcohol Withdrawal: agree with CIWA, banana bag, etc # Opioid Overdose: no specific indication for HD for removal, unless clinically worsening # Depression: psychiatry following
[2022-04-27] MEDS ORDERED: CALC GLUCONATE 1GM/NS 100 ML 1 GM/100 ML BAG IV ONE (14:00)
[2022-04-27 14:33] LABS: Hepatitis B Surface Antigen Non-Reactive (Negative); Hepatitis C Virus Antibody Non-Reactive (NonReactive)
[2022-04-27] MEDS: ARIPiprazole 10 MG TAB PO SCH (14:40)
[2022-04-27] MEDS: ESCITALOPRAM 10 MG TAB PO SCH (17:02)
[2022-04-27] MEDS: SUCRALFATE 1 GM TAB PO SCH ×2 (17:35→23:00)
--- NOTE | 2022-04-27 19:57 | Ultrasound Report ---
ULTRASOUND RENAL INDICATION: dwain. COMPARISON: No relevant prior imaging study available. FINDINGS: RIGHT KIDNEY: Size: 10.2 cm. Echogenicity: Normal. Cortical thickness: Normal. Stones: None. Hydronephrosis: None. Cyst or mass: None. LEFT KIDNEY: Size: 9.1 cm. Echogenicity: Normal. Cortical thickness: Normal. Stones: None. Hydronephrosis: None. Cyst or mass: None. Urinary Bladder: No significant abnormality. Free Fluid: None. Additional Findings: None. IMPRESSION 1. No acute sonographic abnormality of the kidneys. Signer Name: Huang Astorga MD Signed: 04/27/2022 7:52 PM Workstation Name: [id number]
[2022-04-27] MEDS ORDERED: NON-FORMULARY EACH (Buspirone Hcl [Buspirone] 15 MG Tablet) PO SCH (22:00)
[2022-04-27] MEDS ORDERED: COLCHICINE 0.6 MG PO SCH (22:00)
[2022-04-27] MEDS: HEPARIN 5,000 UNIT/1 ML VIAL SUB-Q SCH (23:00)
[2022-04-27] MEDS: traZODone 50 MG TAB PO SCH (23:00)
[2022-04-27] MEDS: busPIRone 5 MG TAB PO SCH (23:01)
[2022-04-28] MEDS: SODIUM CHLORIDE 0.9% 1000 ML 1,000 ML IV SCH ×2 (01:14→10:01)
[2022-04-28] MEDS: LEVOTHYROXINE 50 MCG TAB PO SCH (05:22)
[2022-04-28 06:08] LABS: Creatinine,Urine 113.4 mg/dL (0.1-20.0)
[2022-04-28 06:52] LABS: Calcium 7.8 mg/dL (8.4-10.2)
[2022-04-28] MEDS: busPIRone 5 MG TAB PO SCH ×2 (09:40→22:49)
[2022-04-28] MEDS: SUCRALFATE 1 GM TAB PO SCH ×4 (09:40→22:50)
[2022-04-28] MEDS: ESCITALOPRAM 10 MG TAB PO SCH (09:40)
[2022-04-28] MEDS: THIAMINE 100 MG TAB PO SCH (09:40)
[2022-04-28] MEDS: MULTIVITAMINS ,THERAPEUTIC TAB PO SCH (09:41)
[2022-04-28] MEDS: PANTOPRAZOLE 40 MG TAB PO SCH (09:41)
[2022-04-28] MEDS: FOLIC ACID 1 MG TAB PO SCH (09:41)
[2022-04-28] MEDS: allopurinoL 100 MG TAB PO SCH (09:41)
[2022-04-28] MEDS: HEPARIN 5,000 UNIT/1 ML VIAL SUB-Q SCH ×2 (09:41→22:50)
[2022-04-28] MEDS: ARIPiprazole 10 MG TAB PO SCH (09:41)
[2022-04-28] MEDS ORDERED: COLCHICINE 0.6 MG TAB PO SCH (10:00)
[2022-04-28] MEDS ORDERED: PEPCID 20 MG PO SCH (10:00)
--- NOTE | 2022-04-28 11:58 | Progress Note ---
Assessment and Plan Assessment and plan: 56 YO Female with HTN, HLD, GERD, Gout, Hypothyroidism, PUD, Schizophrenia, DM, Mild Intermittent Asthma, Nicotine Dependence presents ED for evaluation. Patient is lethargic with diminished cognition at the time my evaluation and is unable to provide detailed history. Patient history taken EMS staff, ED staff, as well as patient daughter who was made available by telephone for interview. Patient was found to be obtunded after intentional ingestion of 15 oxycodone tablets and ingestion of alcohol. EMS was notified and upon arrival the patient was found to be in distress and subsequently treated with Narcan and transported to [facility] for further care and evaluation of the aforementioned symptoms. The patient was seen and evaluated in the emergency department. All lab and imaging studies reviewed. Consult placed to hospitalist service on 04/27/2022. The patient was admitted with diagnosis of of alcohol withdrawal syndrome, metabolic encephalopathy, ADDISON with ATN, hyponatremia, and intentional drug overdose. [address] Patient admitted to medical floor and initiated on CIWA protocol. Nephrology team consulted in ED. Mental health team consulted in ED. Intentional drug overdose with oxycodone EtOH withdrawal Metabolic encephalopathy Acute kidney injury on CKD 3 Hypokalemia EtOH dependent Nicotine dependent Major depressive disorder 04/28/2022. Nephrology reports acute kidney injury on CKD 3 with creatinine 1.5 in February 2022 and now now 2.5->3.8->3.9-->2.5, suspect tubular injury in setting of relative hypotension, overall illness, drug abuse. Continue bicarbonate drip per nephrology recommendations. Potassium repleted. Continue CIWA protocol. Follow-up serologies and renal ultrasound. strict Is/Os. Continue 1013 per psychiatry recommendations. History Interval history: No new issues overnight Hospitalist Physical - Constitutional Vitals: Temp Pulse Resp BP Pulse Ox 98.9 F 88 18 142/90 97 04/28/22 04:17 04/28/22 04:17 04/28/22 05:26 04/28/22 04:17 04/28/22 07:57 General appearance: Present: mild distress - EENT Eyes: Present: PERRL, EOM intact ENT: hearing intact, clear oral mucosa, dentition normal - Neck Neck: Present: supple, normal ROM - Respiratory Respiratory effort: normal Respiratory: bilateral: CTA - Cardiovascular Rhythm: regular Heart Sounds: Present: S1 & S2. Absent: gallop, rub - Extremities Extremities: no ischemia, No edema, Full ROM - Abdominal General gastrointestinal: soft, non-tender, non-distended, normal bowel sounds - Integumentary Integumentary: Present: clear, warm, dry - Neurologic Neurologic: CNII-XII intact, moves all extremities Results - Labs CBC & Chem 7: 04/26/22 15:54 04/28/22 06:24 Labs: Laboratory Last Values WBC 10.4 K/mm3 (4.5-11.0) 04/26/22 15:54 RBC 4.14 M/mm3 (3.65-5.03) 04/26/22 15:54 Hgb 11.5 gm/dl (10.1-14.3) 04/26/22 15:54 Hct 36.4 % (30.3-42.9) 04/26/22 15:54 MCV 88 fl (79-97) 04/26/22 15:54 MCH 28 pg (28-32) 04/26/22 15:54 MCHC 32 % (30-34) 04/26/22 15:54 RDW 14.2 % (13.2-15.2) 04/26/22 15:54 Plt Count 293 K/mm3 (140-440) 04/26/22 15:54 Lymph % (Auto) Wildlife Ecology Professor 04/26/22 15:54 Lymph # (Auto) Wildlife Ecology Professor 04/26/22 15:54 Add Manual Diff Complete 04/26/22 15:54 Total Counted 100 04/26/22 15:54 Seg Neutrophils % Wildlife Ecology Professor 04/26/22 15:54 Seg Neuts % (Manual) 24.0 % (40.0-70.0) L 04/26/22 15:54 Band Neutrophils % 0 % 04/26/22 15:54 Lymphocytes % (Manual) 71.0 % (13.4-35.0) H 04/26/22 15:54 Reactive Lymphs % (Man) 0 % 04/26/22 15:54 Monocytes % (Manual) 0 % (0.0-7.3) 04/26/22 15:54 Eosinophils % (Manual) 3.0 % (0.0-4.3) 04/26/22 15:54 Basophils % (Manual) 2.0 % (0.0-1.8) H 04/26/22 15:54 Metamyelocytes % 0 % 04/26/22 15:54 Myelocytes % 0 % 04/26/22 15:54 Promyelocytes % 0 % 04/26/22 15:54 Blast Cells % 0 % 04/26/22 15:54 Nucleated RBC % Not Reportable 04/26/22 15:54 Seg Neutrophils # Man 2.5 K/mm3 (1.8-7.7) 04/26/22 15:54 Band Neutrophils # 0.0 K/mm3 04/26/22 15:54 Lymphocytes # (Manual) 7.4 K/mm3 (1.2-5.4) H 04/26/22 15:54 Abs React Lymphs (Man) 0.0 K/mm3 04/26/22 15:54 Monocytes # (Manual) 0.0 K/mm3 (0.0-0.8) 04/26/22 15:54 Eosinophils # (Manual) 0.3 K/mm3 (0.0-0.4) 04/26/22 15:54 Basophils # (Manual) 0.2 K/mm3 (0.0-0.1) H 04/26/22 15:54 Metamyelocytes # 0.0 K/mm3 04/26/22 15:54 Myelocytes # 0.0 K/mm3 04/26/22 15:54 Promyelocytes # 0.0 K/mm3 04/26/22 15:54 Blast Cells # 0.0 K/mm3 04/26/22 15:54 WBC Morphology Not Reportable 04/26/22 15:54 Hypersegmented Neuts Not Reportable 04/26/22 15:54 Hyposegmented Neuts Not Reportable 04/26/22 15:54 Hypogranular Neuts Not Reportable 04/26/22 15:54 Smudge Cells Not Reportable 04/26/22 15:54 Toxic Granulation Not Reportable 04/26/22 15:54 Toxic Vacuolation Not Reportable 04/26/22 15:54 Dohle Bodies Not Reportable 04/26/22 15:54 Pelger-Huet Anomaly Not Reportable 04/26/22 15:54 Leslye Rods Not Reportable 04/26/22 15:54 Platelet Estimate Consistent w auto 04/26/22 15:54 Clumped Platelets Not Reportable 04/26/22 15:54 Plt Clumps, EDTA Not Reportable 04/26/22 15:54 Large Platelets Not Reportable 04/26/22 15:54 Giant Platelets Not Reportable 04/26/22 15:54 Platelet Satelliting Not Reportable 04/26/22 15:54 Plt Morphology Comment Not Reportable 04/26/22 15:54 RBC Morphology Normal 04/26/22 15:54 Dimorphic RBCs Not Reportable 04/26/22 15:54 Polychromasia Not Reportable 04/26/22 15:54 Hypochromasia Not Reportable 04/26/22 15:54 Poikilocytosis Not Reportable 04/26/22 15:54 Anisocytosis Not Reportable 04/26/22 15:54 Microcytosis Not Reportable 04/26/22 15:54 Macrocytosis Not Reportable 04/26/22 15:54 Spherocytes Not Reportable 04/26/22 15:54 Pappenheimer Bodies Not Reportable 04/26/22 15:54 Sickle Cells Not Reportable 04/26/22 15:54 Target Cells Not Reportable 04/26/22 15:54 Tear Drop Cells Not Reportable 04/26/22 15:54 Ovalocytes Not Reportable 04/26/22 15:54 Helmet Cells Not Reportable 04/26/22 15:54 [place] Bodies Not Reportable 04/26/22 15:54 [place] Rings Not Reportable 04/26/22 15:54 Nataly Cells Not Reportable 04/26/22 15:54 Bite Cells Not Reportable 04/26/22 15:54 Crenated Cell Not Reportable 04/26/22 15:54 Elliptocytes Not Reportable 04/26/22 15:54 Acanthocytes (Spur) Not Reportable 04/26/22 15:54 Rouleaux Not Reportable 04/26/22 15:54 Hemoglobin C Crystals Not Reportable 04/26/22 15:54 Schistocytes Not Reportable 04/26/22 15:54 Malaria parasites Not Reportable 04/26/22 15:54 Say Bodies Not Reportable 04/26/22 15:54 Hem Pathologist Commnt No 04/26/22 15:54 Sodium 138 mmol/L (137-145) 04/28/22 06:24 Potassium 3.5 mmol/L (3.6-5.0) L D 06/23/22 06:24 Chloride 109.3 mmol/L (98-107) H 04/28/22 06:24 Carbon Dioxide 19 mmol/L (22-30) L 04/28/22 06:24 Anion Gap 13 mmol/L 04/28/22 06:24 BUN 36 mg/dL (7-17) H 04/28/22 06:24 Creatinine 2.5 mg/dL (0.6-1.2) H 04/28/22 06:24 Estimated GFR 24 ml/min 04/28/22 06:24 BUN/Creatinine Ratio 14 % 04/28/22 06:24 Glucose 146 mg/dL (65-100) H 04/28/22 06:24 POC Glucose 126 mg/dL (70-105) H 04/28/22 08:02 Calcium 7.8 mg/dL (8.4-10.2) L 04/28/22 06:24 Total Bilirubin 0.40 mg/dL (0.1-1.2) 04/27/22 10:32 AST 79 units/L (5-40) H 04/27/22 10:32 ALT 71 units/L (7-56) H 04/27/22 10:32 Alkaline Phosphatase 182 units/L (35-129) H 04/27/22 10:32 Total Protein 6.8 g/dL (6.3-8.2) 04/27/22 10:32 Albumin 4.1 g/dL (3.9-5) 04/27/22 10:32 Albumin/Globulin Ratio 1.5 % 04/27/22 10:32 Urine Color Yellow (Yellow) 04/26/22 17:57 Urine Turbidity Clear (Clear) 04/26/22 17:57 Urine pH 5.0 (5.0-7.0) 04/26/22 17:57 Ur Specific [place] 1.010 (1.003-1.030) 04/26/22 17:57 Urine Protein 100 mg/dl mg/dL (Negative) 04/26/22 17:57 Urine Glucose (UA) Neg mg/dL (Negative) 04/26/22 17:57 Urine Ketones Neg mg/dL (Negative) 04/26/22 17:57 Urine Blood Neg (Negative) 04/26/22 17:57 Urine Nitrite Neg (Negative) 04/26/22 17:57 Urine Bilirubin Neg (Negative) 04/26/22 17:57 Urine Urobilinogen 2.0 mg/dL (<2.0) 04/26/22 17:57 Ur Leukocyte Esterase Neg (Negative) 04/26/22 17:57 Urine WBC (Auto) 2.0 /HPF (0.0-6.0) 04/26/22 17:57 Urine RBC (Auto) < 1.0 /HPF (0.0-6.0) 04/26/22 17:57 U Epithel Cells (Auto) 3.0 /HPF (0-13.0) 04/26/22 17:57 Urine Bacteria (Auto) 1+ /HPF (Negative) 04/26/22 17:57 Urine Creatinine 113.4 mg/dL (0.1-20.0) H 04/28/22 05:43 Urine Sodium 71 mmol/L 04/28/22 05:43 Salicylates < 0.3 mg/dL (2.8-20.0) L 04/26/22 15:54 Urine Opiates Screen Positive 04/26/22 17:57 Urine Methadone Screen Negative 04/26/22 17:57 Acetaminophen 5.0 ug/mL (10.0-30.0) L 04/26/22 19:02 Ur Barbiturates Screen Negative 04/26/22 17:57 Ur Phencyclidine Scrn Negative 04/26/22 17:57 Ur Amphetamines Screen Negative 04/26/22 17:57 U Benzodiazepines Scrn Negative 04/26/22 17:57 Urine Cocaine Screen Negative 04/26/22 17:57 U Marijuana (THC) Screen Negative 04/26/22 17:57 Drugs of Abuse Note Disclamer 04/26/22 17:57 Plasma/Serum Alcohol 0.27 % (0-0.07) H 04/26/22 15:54 Hepatitis A IgM Ab Non-reactive (NonReactive) 04/27/22 Unknown Hep Bs Antigen Non-reactive (Negative) 04/27/22 Unknown Hep B Core IgM Ab Non-reactive (NonReactive) 04/27/22 Unknown Hepatitis C Antibody Non-reactive (NonReactive) 04/27/22 Unknown Johnson/IV: Voiding Method Incontinent Active Medications - Current Medications Current Medications: Generic Name Dose Route Start Last Admin Trade Name Freq PRN Reason Stop Dose Admin Acetaminophen 650 mg 04/27/22 13:35 Acetaminophen 325 Mg Tab PO Q4H PRN Pain MILD(1-3)/Fever >100.5/NINO Albuterol 2.5 mg 04/27/22 13:35 Albuterol 2.5 Mg/3 Ml Nebu IH Q4HRT PRN Shortness Of Breath Allopurinol 100 mg 04/28/22 10:00 04/28/22 09:41 Allopurinol 100 Mg Tab PO 100 mg DAILY ARIANE Administration Aripiprazole 10 mg 04/27/22 14:00 04/28/22 09:41 Aripiprazole 10 Mg Tab PO 10 mg QDAY ARIANE Administration Atorvastatin Calcium 20 mg 04/27/22 22:00 04/27/22 23:00 Atorvastatin 20 Mg Tab PO 20 mg QHS ARIANE Administration Buspirone HCl 15 mg 04/27/22 22:00 04/28/22 09:40 Buspirone 5 Mg Tab PO 15 mg BID ARIANE Administration Chlordiazepoxide HCl 50 mg 04/27/22 13:36 Chlordiazepoxide 25 Mg Cap PO Q1HR PRN CIWA-Ar 8-15 Escitalopram Oxalate 10 mg 04/27/22 16:00 04/28/22 09:40 Escitalopram 10 Mg Tab PO 10 mg QDAY ARIANE Administration Folic Acid 1 mg 04/28/22 10:00 04/28/22 09:41 Folic Acid 1 Mg Tab PO 1 mg QDAY ARIANE Administration Heparin Sodium (Porcine) 5,000 unit 04/27/22 22:00 04/28/22 09:41 Heparin 5,000 Unit/1 Ml Vial SUB-Q 5,000 unit Q12HR ARIANE Administration Hydromorphone HCl 0.5 mg 04/27/22 13:35 Hydromorphone 0.5 Mg/0.5 Ml Inj IV Q23H PRN Pain , Severe (7-10) Hyoscyamine 0.125 mg 04/27/22 13:38 Hyoscyamine Subl 0.125 Mg Tab SL Q6HR PRN STOMACH Pain , Severe (7-10) Sodium Chloride 1,000 mls @ 100 mls/hr 04/27/22 16:30 04/28/22 10:01 Nacl 0.9% 1000 Ml IV 100 mls/hr DIRECT ARIANE Administration Levothyroxine Sodium 50 mcg 04/28/22 06:00 04/28/22 05:22 Levothyroxine 50 Mcg Tab PO 50 mcg 0600 ARIANE Administration Lorazepam 2 mg 04/27/22 13:36 Lorazepam 2 Mg/Ml Vial IV Q4H PRN Edgar 16-25 Multivitamins 1 each 04/28/22 10:00 04/28/22 09:41 Multivitamins ,Therapeutic Tab PO 1 each DAILY ARIANE Administration Ondansetron HCl 4 mg 04/27/22 13:35 Ondansetron 4 Mg/2 Ml Inj IV Q8H PRN Nausea And Vomiting Oxycodone/Acetaminophen 1 tab 04/27/22 13:35 Oxycodone /Acetaminophen 5-325mg Tab PO Q16H PRN Pain, Moderate (4-6) Pantoprazole Sodium 40 mg 04/28/22 10:00 04/28/22 09:41 Pantoprazole 40 Mg Tab PO 40 mg DAILY ARIANE Administration Promethazine HCl 25 mg 04/27/22 13:38 Promethazine 25 Mg Tab PO Q12H PRN Nausea Sodium Chloride 10 ml 04/27/22 22:00 04/28/22 09:42 Sodium Chloride 0.9% 10 Ml Flush Syringe IV 10 ml BID ARIANE Administration Sodium Chloride 10 ml 04/27/22 13:35 Sodium Chloride 0.9% 10 Ml Flush Syringe IV PRN PRN LINE FLUSH Sucralfate 1 gm 04/27/22 16:30 04/28/22 09:40 Sucralfate 1 Gm Tab PO 1 gm ACHS ARIANE Administration Thiamine HCl 100 mg 04/28/22 10:00 04/28/22 09:40 Thiamine 100 Mg Tab PO 100 mg DAILY ARIANE Administration Trazodone HCl 50 mg 04/27/22 22:00 04/27/22 23:00 Trazodone 50 Mg Tab PO Not Given QHS ARIANE
--- NOTE | 2022-04-28 12:14 | Progress Note ---
Subjective - Reason for Consult Consult date: 04/28/22 Reason for consult: overdose - Chief Complaint Chief complaint: The patient was seen today. She is calm and cooperative. She appears depressed. The patient initially denies trying to harm herself. She says "I was just playing with my daughter." The more I talk with the patient, she says "I'm depressed. I take care of my by myself with no help." She says "I took the pills cause my was pushing my buttons." The patient says "but I know they need me and I have a grand baby I love." The patient says she slept well. REVIEW OF SYSTEMS Constitutional: Negative for weight loss ENT: Negative for stridor Respiratory: Negative for cough or hemoptysis All other systems reviewed and are negative MENTAL STATUS EXAMINATION General Appearance and Behavior: Age appropriate, good hygiene, wearing appropriate clothes, fair eye contact, cooperative polite with questioning. Cooperation: Participating/engaged, guarded Psychomotor Behavior: unremarkable and within normal limits Mood: Depressed Affect and affective range: congruent with mood Thought Process: Goal directed Thought Content: Denies Speech: Normal volume, Regular rate and rhythm, Suicidal Ideation: Yes Homicidal Ideation: Denies Hallucinations: Denies Delusions: None Impulse Control: Normal Insight and Judgment: Limited insight and judgment, Memory: Normal, Attention: Normal, Orientation: Alert, oriented, Assessment and Plan (1) Major Depressive Disorder (2) ETOH Dependence Treatment 1013 Increase Lexapro 20mg po daily Abilify 10mg po daily Trazodone 50g po qhs CIWA Sitter: Per primary Medical: Per primary Disposition: recommend acute inpatient psychiatric treatment. Will follow. Thanks Case staffed with Dr. Powell Mental Status Exam - Vital signs Last Vital Signs Temp 98.9 F 04/28/22 04:17 Pulse 88 04/28/22 04:17 Resp 18 04/28/22 05:26 BP 142/90 04/28/22 04:17 Pulse Ox 97 04/28/22 07:57
--- NOTE | 2022-04-28 13:23 | Progress Note ---
Assessment and Plan # Acute Kidney Injury in CKD 3: creatinine 1.5 in February 2022, now 2.5->3.8->3.9->2.5, suspect tubular injury in setting of relative hypotension, overall illness, drug abuse - continue supportive measures including IVF - HCO3 19 this AM, improving. K improved - hold colchicine which can be nephrotoxic; recommend alternative to PPI as well given AIN risk - support BP, MAP>70 if needed, BP stable - check ethyl glycol, methanol as well, pending - agree with [facility] protocol - defer serologies, urinalysis fairly bland - check renal ultrasound - strict Is/Os - no indication for renal replacement therapy # Alcohol Withdrawal: management per primary # Opioid Overdose: no specific indication for HD for removal, unless clinically worsening # Depression: psychiatry following Subjective Date of service: 04/28/22 Interval history: Sitting up in bed this AM, less somnolent, no acute issues or concerns noted. Notes good urine output Objective - Exam Narrative Exam: General appearance: no distress, fatigue, frail EENT: mucous membranes moist Neck: Present: neck supple, trachea midline Respiratory: Clear to Ascultation Heart: tachycardia Gastrointestinal: Present: normoactive bowel sounds Integumentary: no rash, warm and dry Neurologic: no focal deficit, alert and oriented x3 Psychiatric: mood/affect appropriate - Vital Signs Vital signs: Vital Signs - 12hr 04/28/22 04/28/22 04/28/22 04:17 05:26 07:57 Temperature 98.9 F Pulse Rate 88 Respiratory 18 18 Rate Blood Pressure 142/90 [Left] O2 Sat by Pulse 91 93 97 Oximetry - Lab 04/26/22 15:54 04/28/22 06:24 Most recent lab results Calcium 7.8 mg/dL (8.4-10.2) L 04/28/22 06:24 Urine Creatinine 113.4 mg/dL (0.1-20.0) H 04/28/22 05:43 Urine Sodium 71 mmol/L 04/28/22 05:43 Medications & Allergies - Medications Allergies/Adverse Reactions: Allergies latex Allergy (Verified 04/26/22 14:04) Hives Sulfa (Sulfonamide Antibiotics) Allergy (Verified 04/26/22 14:04) Swelling Home Medications: Home Medications Medication Instructions Recorded Confirmed Last Taken Type Pepcid 20 mg PO DAILY 12/07/19 02/25/20 Unknown History AtorvaSTATin [Lipitor] 20 mg PO QHS 02/25/20 02/25/20 Unknown History Buspirone HCl [busPIRone] 15 mg PO BID 02/25/20 02/25/20 Unknown History Colchicine 0.6 mg PO BID 02/25/20 02/25/20 Unknown History Levothyroxine [Synthroid] 50 mcg PO QAM 02/25/20 02/25/20 Unknown History Oxycodone HCl [oxyCODONE] 10 mg PO BID PRN 02/25/20 02/25/20 Unknown History Pantoprazole [Protonix TAB] 40 mg PO DAILY 02/25/20 02/25/20 Unknown History Promethazine [Phenergan] 25 mg PO Q12H PRN 02/25/20 02/25/20 Unknown History allopurinoL [Zyloprim] 100 mg PO DAILY 02/25/20 02/25/20 Unknown History glipiZIDE [Glucotrol] 5 mg PO DAILY 02/25/20 02/25/20 Unknown History metFORMIN [Glucophage] 500 mg PO DAILY 02/25/20 02/25/20 Unknown History Irbesartan 150 mg PO DAILY 02/27/20 02/27/20 Unknown History Metoprolol [Lopressor] 100 mg PO BID 02/27/20 02/27/20 Unknown History Hyoscyamine Subl [Levsin Sl 0.125 0.125 mg SL Q6HR PRN #20 tab 07/14/21 Unknown Rx TAB] Sucralfate [Carafate] 1 gm PO ACHS #120 tablet 07/14/21 Unknown Rx Active Medications: Generic Name Dose Route Start Last Admin Trade Name Freq PRN Reason Stop Dose Admin Acetaminophen 650 mg 04/27/22 13:35 Acetaminophen 325 Mg Tab PO Q4H PRN Pain MILD(1-3)/Fever >100.5/NINO Albuterol 2.5 mg 04/27/22 13:35 Albuterol 2.5 Mg/3 Ml Nebu IH Q4HRT PRN Shortness Of Breath Allopurinol 100 mg 04/28/22 10:00 04/28/22 09:41 Allopurinol 100 Mg Tab PO 100 mg DAILY ARIANE Administration Aripiprazole 10 mg 04/27/22 14:00 04/28/22 09:41 Aripiprazole 10 Mg Tab PO 10 mg QDAY ARIANE Administration Atorvastatin Calcium 20 mg 04/27/22 22:00 04/27/22 23:00 Atorvastatin 20 Mg Tab PO 20 mg QHS ARIANE Administration Buspirone HCl 15 mg 04/27/22 22:00 04/28/22 09:40 Buspirone 5 Mg Tab PO 15 mg BID ARIANE Administration Chlordiazepoxide HCl 50 mg 04/27/22 13:36 Chlordiazepoxide 25 Mg Cap PO Q1HR PRN CIWA-Ar 8-15 Escitalopram Oxalate 20 mg 04/29/22 10:00 Escitalopram 10 Mg Tab PO QDAY ARIANE Folic Acid 1 mg 04/28/22 10:00 04/28/22 09:41 Folic Acid 1 Mg Tab PO 1 mg QDAY ARIANE Administration Heparin Sodium (Porcine) 5,000 unit 04/27/22 22:00 04/28/22 09:41 Heparin 5,000 Unit/1 Ml Vial SUB-Q 5,000 unit Q12HR ARIANE Administration Hydromorphone HCl 0.5 mg 04/27/22 13:35 Hydromorphone 0.5 Mg/0.5 Ml Inj IV Q23H PRN Pain , Severe (7-10) Hyoscyamine 0.125 mg 04/27/22 13:38 Hyoscyamine Subl 0.125 Mg Tab SL Q6HR PRN STOMACH Pain , Severe (7-10) Sodium Chloride 1,000 mls @ 100 mls/hr 04/27/22 16:30 04/28/22 10:01 Nacl 0.9% 1000 Ml IV 100 mls/hr DIRECT ARIANE Administration Levothyroxine Sodium 50 mcg 04/28/22 06:00 04/28/22 05:22 Levothyroxine 50 Mcg Tab PO 50 mcg 0600 ARIANE Administration Lorazepam 2 mg 04/27/22 13:36 Lorazepam 2 Mg/Ml Vial IV Q4H PRN CIWA-Ar 16-25 Multivitamins 1 each 04/28/22 10:00 04/28/22 09:41 Multivitamins ,Therapeutic Tab PO 1 each DAILY ARIANE Administration Ondansetron HCl 4 mg 04/27/22 13:35 Ondansetron 4 Mg/2 Ml Inj IV Q8H PRN Nausea And Vomiting Oxycodone/Acetaminophen 1 tab 04/27/22 13:35 Oxycodone /Acetaminophen 5-325mg Tab PO Q16H PRN Pain, Moderate (4-6) Pantoprazole Sodium 40 mg 04/28/22 10:00 04/28/22 09:41 Pantoprazole 40 Mg Tab PO 40 mg DAILY ARIANE Administration Promethazine HCl 25 mg 04/27/22 13:38 Promethazine 25 Mg Tab PO Q12H PRN Nausea Sodium Chloride 10 ml 04/27/22 22:00 04/28/22 09:42 Sodium Chloride 0.9% 10 Ml Flush Syringe IV 10 ml BID ARIANE Administration Sodium Chloride 10 ml 04/27/22 13:35 Sodium Chloride 0.9% 10 Ml Flush Syringe IV PRN PRN LINE FLUSH Sucralfate 1 gm 04/27/22 16:30 04/28/22 13:10 Sucralfate 1 Gm Tab PO 1 gm ACHS ARIANE Administration Thiamine HCl 100 mg 04/28/22 10:00 04/28/22 09:40 Thiamine 100 Mg Tab PO 100 mg DAILY ARIANE Administration Trazodone HCl 50 mg 04/27/22 22:00 04/27/22 23:00 Trazodone 50 Mg Tab PO Not Given QHS ARIANE
--- NOTE | 2022-04-28 18:58 | Electrocardiograph Report ---
[facility] Test Date: 2022-04-26 Test Time: 16:18:18 Pat Name: KENRICK LYNN Department: Room: A372 Gender: F Manager Report: NASH : 1965 Requested By: DUNG JJ Order Number: [id number] Reading MD: Zackery Stearns Measurements Intervals [place] Rate: 97 P: 75 MN: 144 QRS: 5 QRSD: 76 T: 28 QT: 381 QTc: 484 Interpretive Statements Sinus rhythm Compared to ECG 07/14/2021 14:16:09 No significant changes Electronically Signed On 04-28-2022 18:58:01 EDT by Zackery Stearns
[2022-04-28] MEDS: traZODone 50 MG TAB PO SCH (22:50)
[2022-04-29] MEDS: LEVOTHYROXINE 50 MCG TAB PO SCH (05:39)
[2022-04-29] MEDS: SUCRALFATE 1 GM TAB PO SCH ×4 (08:45→22:26)
[2022-04-29] MEDS: allopurinoL 100 MG TAB PO SCH (09:17)
[2022-04-29] MEDS: ARIPiprazole 10 MG TAB PO SCH (09:17)
[2022-04-29] MEDS: PANTOPRAZOLE 40 MG TAB PO SCH (09:17)
[2022-04-29] MEDS: FOLIC ACID 1 MG TAB PO SCH (09:17)
[2022-04-29] MEDS: busPIRone 5 MG TAB PO SCH ×2 (09:17→22:26)
[2022-04-29] MEDS: THIAMINE 100 MG TAB PO SCH (09:17)
[2022-04-29] MEDS: MULTIVITAMINS ,THERAPEUTIC TAB PO SCH (09:17)
[2022-04-29] MEDS: HEPARIN 5,000 UNIT/1 ML VIAL SUB-Q SCH ×2 (09:18→22:26)
[2022-04-29] MEDS: ESCITALOPRAM 10 MG TAB PO SCH (09:20)
--- NOTE | 2022-04-29 10:59 | Progress Note ---
Assessment and Plan Assessment and plan: 56 YO Female with HTN, HLD, GERD, Gout, Hypothyroidism, PUD, Schizophrenia, DM, Mild Intermittent Asthma, Nicotine Dependence presents ED for evaluation. Patient is lethargic with diminished cognition at the time my evaluation and is unable to provide detailed history. Patient history taken EMS staff, ED staff, as well as patient daughter who was made available by telephone for interview. Patient was found to be obtunded after intentional ingestion of 15 oxycodone tablets and ingestion of alcohol. EMS was notified and upon arrival the patient was found to be in distress and subsequently treated with Narcan and transported to [facility] for further care and evaluation of the aforementioned symptoms. The patient was seen and evaluated in the emergency department. All lab and imaging studies reviewed. Consult placed to hospitalist service on 04/27/2022. The patient was admitted with diagnosis of of alcohol withdrawal syndrome, metabolic encephalopathy, ADDISON with ATN, hyponatremia, and intentional drug overdose. [address] Patient admitted to medical floor and initiated on CIWA protocol. Nephrology team consulted in ED. Mental health team consulted in ED. Intentional drug overdose with oxycodone EtOH withdrawal Metabolic encephalopathy Acute kidney injury on CKD 3 Hypokalemia EtOH dependent Nicotine dependent Major depressive disorder 04/28/2022. Nephrology reports acute kidney injury on CKD 3 with creatinine 1.5 in February 2022 and now now 2.5->3.8->3.9-->2.5, suspect tubular injury in setting of relative hypotension, overall illness, drug abuse. Continue bicarbonate drip per nephrology recommendations. Potassium repleted. Continue CIWA protocol. Follow-up serologies and renal ultrasound. strict Is/Os. Continue 1013 per psychiatry recommendations. 04/29/2022. Patient with acute kidney injury on CKD 3 with creatinine 2.5 yesterday. Follow-up BMP today. Etiology likely secondary to tubular injury from hypotension, overall illness and drug abuse. Continue supportive measures with IV fluid hydration. Follow-up renal ultrasound. Hypokalemia resolved. Continue CIWA protocol. With regards to the oxycodone overdose, we will follow- up acetaminophen level and LFTs. Psychiatry increase Lexapro to 20 mg p.o. daily. Continue Abilify and trazodone. Continue 1013 History Interval history: No new issues overnight Hospitalist Physical - Constitutional Vitals: Temp Pulse Resp BP Pulse Ox 98.5 F 80 16 151/90 98 04/28/22 21:37 04/28/22 21:37 04/28/22 23:00 04/28/22 21:37 04/29/22 10:01 General appearance: Present: mild distress - EENT Eyes: Present: PERRL, EOM intact ENT: hearing intact, clear oral mucosa, dentition normal - Neck Neck: Present: supple, normal ROM - Respiratory Respiratory effort: normal Respiratory: bilateral: CTA - Cardiovascular Rhythm: regular Heart Sounds: Present: S1 & S2. Absent: gallop, rub - Extremities Extremities: no ischemia, No edema, Full ROM - Abdominal General gastrointestinal: soft, non-tender, non-distended, normal bowel sounds - Integumentary Integumentary: Present: clear, warm, dry - Neurologic Neurologic: CNII-XII intact, moves all extremities Results - Labs CBC & Chem 7: 04/26/22 15:54 04/28/22 06:24 Labs: Laboratory Last Values WBC 10.4 K/mm3 (4.5-11.0) 04/26/22 15:54 RBC 4.14 M/mm3 (3.65-5.03) 04/26/22 15:54 Hgb 11.5 gm/dl (10.1-14.3) 04/26/22 15:54 Hct 36.4 % (30.3-42.9) 04/26/22 15:54 MCV 88 fl (79-97) 04/26/22 15:54 MCH 28 pg (28-32) 04/26/22 15:54 MCHC 32 % (30-34) 04/26/22 15:54 RDW 14.2 % (13.2-15.2) 04/26/22 15:54 Plt Count 293 K/mm3 (140-440) 04/26/22 15:54 Lymph % (Auto) Check Weigher 04/26/22 15:54 Lymph # (Auto) Check Weigher 04/26/22 15:54 Add Manual Diff Complete 04/26/22 15:54 Total Counted 100 04/26/22 15:54 Seg Neutrophils % Check Weigher 04/26/22 15:54 Seg Neuts % (Manual) 24.0 % (40.0-70.0) L 04/26/22 15:54 Band Neutrophils % 0 % 04/26/22 15:54 Lymphocytes % (Manual) 71.0 % (13.4-35.0) H 04/26/22 15:54 Reactive Lymphs % (Man) 0 % 04/26/22 15:54 Monocytes % (Manual) 0 % (0.0-7.3) 04/26/22 15:54 Eosinophils % (Manual) 3.0 % (0.0-4.3) 04/26/22 15:54 Basophils % (Manual) 2.0 % (0.0-1.8) H 04/26/22 15:54 Metamyelocytes % 0 % 04/26/22 15:54 Myelocytes % 0 % 04/26/22 15:54 Promyelocytes % 0 % 04/26/22 15:54 Blast Cells % 0 % 04/26/22 15:54 Nucleated RBC % Not Reportable 04/26/22 15:54 Seg Neutrophils # Man 2.5 K/mm3 (1.8-7.7) 04/26/22 15:54 Band Neutrophils # 0.0 K/mm3 04/26/22 15:54 Lymphocytes # (Manual) 7.4 K/mm3 (1.2-5.4) H 04/26/22 15:54 Abs React Lymphs (Man) 0.0 K/mm3 04/26/22 15:54 Monocytes # (Manual) 0.0 K/mm3 (0.0-0.8) 04/26/22 15:54 Eosinophils # (Manual) 0.3 K/mm3 (0.0-0.4) 04/26/22 15:54 Basophils # (Manual) 0.2 K/mm3 (0.0-0.1) H 04/26/22 15:54 Metamyelocytes # 0.0 K/mm3 04/26/22 15:54 Myelocytes # 0.0 K/mm3 04/26/22 15:54 Promyelocytes # 0.0 K/mm3 04/26/22 15:54 Blast Cells # 0.0 K/mm3 04/26/22 15:54 WBC Morphology Not Reportable 04/26/22 15:54 Hypersegmented Neuts Not Reportable 04/26/22 15:54 Hyposegmented Neuts Not Reportable 04/26/22 15:54 Hypogranular Neuts Not Reportable 04/26/22 15:54 Smudge Cells Not Reportable 04/26/22 15:54 Toxic Granulation Not Reportable 04/26/22 15:54 Toxic Vacuolation Not Reportable 04/26/22 15:54 Dohle Bodies Not Reportable 04/26/22 15:54 Pelger-Huet Anomaly Not Reportable 04/26/22 15:54 Leslye Rods Not Reportable 04/26/22 15:54 Platelet Estimate Consistent w auto 04/26/22 15:54 Clumped Platelets Not Reportable 04/26/22 15:54 Plt Clumps, EDTA Not Reportable 04/26/22 15:54 Large Platelets Not Reportable 04/26/22 15:54 Giant Platelets Not Reportable 04/26/22 15:54 Platelet Satelliting Not Reportable 04/26/22 15:54 Plt Morphology Comment Not Reportable 04/26/22 15:54 RBC Morphology Normal 04/26/22 15:54 Dimorphic RBCs Not Reportable 04/26/22 15:54 Polychromasia Not Reportable 04/26/22 15:54 Hypochromasia Not Reportable 04/26/22 15:54 Poikilocytosis Not Reportable 04/26/22 15:54 Anisocytosis Not Reportable 04/26/22 15:54 Microcytosis Not Reportable 04/26/22 15:54 Macrocytosis Not Reportable 04/26/22 15:54 Spherocytes Not Reportable 04/26/22 15:54 Pappenheimer Bodies Not Reportable 04/26/22 15:54 Sickle Cells Not Reportable 04/26/22 15:54 Target Cells Not Reportable 04/26/22 15:54 Tear Drop Cells Not Reportable 04/26/22 15:54 Ovalocytes Not Reportable 04/26/22 15:54 Helmet Cells Not Reportable 04/26/22 15:54 Monson-Malcom Bodies Not Reportable 04/26/22 15:54 G[place]on Rings Not Reportable 04/26/22 15:54 Nataly Cells Not Reportable 04/26/22 15:54 Bite Cells Not Reportable 04/26/22 15:54 Crenated Cell Not Reportable 04/26/22 15:54 Elliptocytes Not Reportable 04/26/22 15:54 Acanthocytes (Spur) Not Reportable 04/26/22 15:54 Rouleaux Not Reportable 04/26/22 15:54 Hemoglobin C Crystals Not Reportable 04/26/22 15:54 Schistocytes Not Reportable 04/26/22 15:54 Malaria parasites Not Reportable 04/26/22 15:54 Say Bodies Not Reportable 04/26/22 15:54 Hem Pathologist Commnt No 04/26/22 15:54 Sodium 138 mmol/L (137-145) 04/28/22 06:24 Potassium 3.5 mmol/L (3.6-5.0) L D 04/28/22 06:24 Chloride 109.3 mmol/L (98-107) H 04/28/22 06:24 Carbon Dioxide 19 mmol/L (22-30) L 04/28/22 06:24 Anion Gap 13 mmol/L 04/28/22 06:24 BUN 36 mg/dL (7-17) H 04/28/22 06:24 Creatinine 2.5 mg/dL (0.6-1.2) H 04/28/22 06:24 Estimated GFR 24 ml/min 04/28/22 06:24 BUN/Creatinine Ratio 14 % 04/28/22 06:24 Glucose 146 mg/dL (65-100) H 04/28/22 06:24 POC Glucose 102 mg/dL (70-105) 04/29/22 07:55 Calcium 7.8 mg/dL (8.4-10.2) L 04/28/22 06:24 Total Bilirubin 0.40 mg/dL (0.1-1.2) 04/27/22 10:32 AST 79 units/L (5-40) H 04/27/22 10:32 ALT 71 units/L (7-56) H 04/27/22 10:32 Alkaline Phosphatase 182 units/L (35-129) H 04/27/22 10:32 Total Protein 6.8 g/dL (6.3-8.2) 04/27/22 10:32 Albumin 4.1 g/dL (3.9-5) 04/27/22 10:32 Albumin/Globulin Ratio 1.5 % 04/27/22 10:32 Urine Color Yellow (Yellow) 04/26/22 17:57 Urine Turbidity Clear (Clear) 04/26/22 17:57 Urine pH 5.0 (5.0-7.0) 04/26/22 17:57 Ur Specific [place] 1.010 (1.003-1.030) 04/26/22 17:57 Urine Protein 100 mg/dl mg/dL (Negative) 04/26/22 17:57 Urine Glucose (UA) Neg mg/dL (Negative) 04/26/22 17:57 Urine Ketones Neg mg/dL (Negative) 04/26/22 17:57 Urine Blood Neg (Negative) 04/26/22 17:57 Urine Nitrite Neg (Negative) 04/26/22 17:57 Urine Bilirubin Neg (Negative) 04/26/22 17:57 Urine Urobilinogen 2.0 mg/dL (<2.0) 04/26/22 17:57 Ur Leukocyte Esterase Neg (Negative) 04/26/22 17:57 Urine WBC (Auto) 2.0 /HPF (0.0-6.0) 04/26/22 17:57 Urine RBC (Auto) < 1.0 /HPF (0.0-6.0) 04/26/22 17:57 U Epithel Cells (Auto) 3.0 /HPF (0-13.0) 04/26/22 17:57 Urine Bacteria (Auto) 1+ /HPF (Negative) 04/26/22 17:57 Urine Creatinine 113.4 mg/dL (0.1-20.0) H 04/28/22 05:43 Urine Sodium 71 mmol/L 04/28/22 05:43 Nasal Screen MRSA (PCR) Negative (Negative) 04/28/22 05:21 Salicylates < 0.3 mg/dL (2.8-20.0) L 04/26/22 15:54 Urine Opiates Screen Positive 04/26/22 17:57 Urine Methadone Screen Negative 04/26/22 17:57 Acetaminophen 5.0 ug/mL (10.0-30.0) L 04/26/22 19:02 Ur Barbiturates Screen Negative 04/26/22 17:57 Ur Phencyclidine Scrn Negative 04/26/22 17:57 Ur Amphetamines Screen Negative 04/26/22 17:57 U Benzodiazepines Scrn Negative 04/26/22 17:57 Urine Cocaine Screen Negative 04/26/22 17:57 U Marijuana (THC) Screen Negative 04/26/22 17:57 Drugs of Abuse Note Disclamer 04/26/22 17:57 Ethylene Glycol See scanned result 04/27/22 14:19 Plasma/Serum Alcohol 0.27 % (0-0.07) H 04/26/22 15:54 Hepatitis A IgM Ab Non-reactive (NonReactive) 04/27/22 Unknown Hep Bs Antigen Non-reactive (Negative) 04/27/22 Unknown Hep B Core IgM Ab Non-reactive (NonReactive) 04/27/22 Unknown Hepatitis C Antibody Non-reactive (NonReactive) 04/27/22 Unknown Johnson/IV: Voiding Method Toilet Active Medications - Current Medications Current Medications: Generic Name Dose Route Start Last Admin Trade Name Freq PRN Reason Stop Dose Admin Acetaminophen 650 mg 04/27/22 13:35 Acetaminophen 325 Mg Tab PO Q4H PRN Pain MILD(1-3)/Fever >100.5/NINO Albuterol 2.5 mg 04/27/22 13:35 Albuterol 2.5 Mg/3 Ml Nebu IH Q4HRT PRN Shortness Of Breath Allopurinol 100 mg 04/28/22 10:00 04/29/22 09:17 Allopurinol 100 Mg Tab PO 100 mg DAILY ARIANE Administration Aripiprazole 10 mg 04/27/22 14:00 04/29/22 09:17 Aripiprazole 10 Mg Tab PO 10 mg QDAY ARIANE Administration Atorvastatin Calcium 20 mg 04/27/22 22:00 04/28/22 22:50 Atorvastatin 20 Mg Tab PO 20 mg QHS ARIANE Administration Buspirone HCl 15 mg 04/27/22 22:00 04/29/22 09:17 Buspirone 5 Mg Tab PO 15 mg BID ARIANE Administration Chlordiazepoxide HCl 50 mg 04/27/22 13:36 Chlordiazepoxide 25 Mg Cap PO Q1HR PRN CIWA-Ar 8-15 Escitalopram Oxalate 20 mg 04/29/22 10:00 04/29/22 09:20 Escitalopram 10 Mg Tab PO 20 mg QDAY ARIANE Administration Folic Acid 1 mg 04/28/22 10:00 04/29/22 09:17 Folic Acid 1 Mg Tab PO 1 mg QDAY ARIANE Administration Heparin Sodium (Porcine) 5,000 unit 04/27/22 22:00 04/29/22 09:18 Heparin 5,000 Unit/1 Ml Vial SUB-Q 5,000 unit Q12HR ARIANE Administration Hydromorphone HCl 0.5 mg 04/27/22 13:35 Hydromorphone 0.5 Mg/0.5 Ml Inj IV Q23H PRN Pain , Severe (7-10) Hyoscyamine 0.125 mg 04/27/22 13:38 Hyoscyamine Subl 0.125 Mg Tab SL Q6HR PRN STOMACH Pain , Severe (7-10) Sodium Chloride 1,000 mls @ 100 mls/hr 04/27/22 16:30 04/28/22 10:01 Nacl 0.9% 1000 Ml IV 100 mls/hr DIRECT ARIANE Administration Levothyroxine Sodium 50 mcg 04/28/22 06:00 04/29/22 05:39 Levothyroxine 50 Mcg Tab PO 50 mcg 0600 ARIANE Administration Lorazepam 2 mg 04/27/22 13:36 Lorazepam 2 Mg/Ml Vial IV Q4H PRN Edgar 16-25 Multivitamins 1 each 04/28/22 10:00 04/29/22 09:17 Multivitamins ,Therapeutic Tab PO 1 each DAILY ARIANE Administration Ondansetron HCl 4 mg 04/27/22 13:35 Ondansetron 4 Mg/2 Ml Inj IV Q8H PRN Nausea And Vomiting Oxycodone/Acetaminophen 1 tab 04/27/22 13:35 Oxycodone /Acetaminophen 5-325mg Tab PO Q16H PRN Pain, Moderate (4-6) Pantoprazole Sodium 40 mg 04/28/22 10:00 04/29/22 09:17 Pantoprazole 40 Mg Tab PO 40 mg DAILY ARIANE Administration Promethazine HCl 25 mg 04/27/22 13:38 Promethazine 25 Mg Tab PO Q12H PRN Nausea Sodium Chloride 10 ml 04/27/22 22:00 04/29/22 09:18 Sodium Chloride 0.9% 10 Ml Flush Syringe IV 10 ml BID ARIANE Administration Sodium Chloride 10 ml 04/27/22 13:35 Sodium Chloride 0.9% 10 Ml Flush Syringe IV PRN PRN LINE FLUSH Sucralfate 1 gm 04/27/22 16:30 04/29/22 08:45 Sucralfate 1 Gm Tab PO 1 gm ACHS ARIANE Administration Thiamine HCl 100 mg 04/28/22 10:00 04/29/22 09:17 Thiamine 100 Mg Tab PO 100 mg DAILY ARIANE Administration Trazodone HCl 50 mg 04/27/22 22:00 04/28/22 22:50 Trazodone 50 Mg Tab PO 50 mg QHS ARIANE Administration Nutrition/Malnutrition Assess - Dietary Evaluation Nutrition/Malnutrition Findings: Nutrition Notes Start: 04/28/22 1 8:12 Freq: Status: Active Protocol: Document 04/28/22 18:12 GONZALO (Rec: 04/28/22 18:28 GONZALO [id number]) Nutrition Notes 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 Current Diet Renal Diet (since B 04/27). Labs/Tests 04/28: K 3.5, Cl 109.3, CO2 19 , BUN 36, Crea 2.5, Glu 146, Ca 7.8. Pertinent Medications 04/28: Folkic acid, Levothyroxine, Multivitamins, Thiamine, others nutritionally unremarkable. Height 5 ft 2 in Weight 65 kg [place] Body Weight (kg) 50.00 BMI 26.2 Intake Prior to Admission Poor Weight change and time frame Pt states having, unintentionally, loss between 2 and 13 lb recently. Weight Status Overweight Subjective/Other Information RD consult for risk of malnutrition assessment. Pt's PO intake of meals has been Good (75%), according to ADL notes. Pt is on Nasal Cannula, O2 saturation @ 98%, according to Physical Assessment History notes. Pt has missing teeth, according to Physical Assessment History notes. Pt shows no signs of concern for risk of malnutrition at the time, according to Physical Assessment History notes. Percent of energy/protein needs met: Prescribed Renal Diet provides for energy/protein needs (2, 072 Kcal/77 g) during LOS. Burn Absent Trauma Absent GI Symptoms None Food Allergy No Skin Integrity/Comment Assessment WNL. Current % PO Good (75-100%) Minimum of two criteria No Fluid Accumulation N/A Reduced Precision Dyer Strength N/A (non-severe) Protein-Calorie Malnutrition N\A #1 Nutrition Diagnosis No nutrition diagnosis at this time Is patient on ventilator? No Is Patient Ambulatory and/or Out of Bed Yes REE-([facility]-ambulatory/OOB) [ 9853.225 [id number]] Kcal/Kg value to use for calculation 19 Approximate Energy Requirements Using 1235 kcal/Kg Calculation Used for Recommendations Kcal/kg Additional Notes Protein: 0.8-1.2 g/Kg ABW; 52- 78 g/day. Fluids: 1 ml/Kcal, or as per MD. Nutrition Intervention Change Diet Order: Continue Renal Diet. Follow-Up By: 05/05/22 Additional Comments Continue monitoring food tolerance, %PO intake of meals , and BM.
--- NOTE | 2022-04-29 11:48 | Progress Note ---
Subjective - Reason for Consult Consult date: 04/29/22 Reason for consult: suicidal attempt - Chief Complaint Chief complaint: The patient was seen today. She is calm and cooperative. She continues to endorse depression, rates as 4/10.The patient states " I'm going through a lot, my has Dementia. She reports difficulty with maintaining sleep. She is focused on discharge. The patient denies any current suicidal/homicidal ideation and denies hallucinations. Due to her recent suicidal attempt, and continued depression; she posses a significant danger to herself. Will continue referring inpatient. REVIEW OF SYSTEMS Constitutional: Negative for weight loss ENT: Negative for stridor Respiratory: Negative for cough or hemoptysis All other systems reviewed and are negative MENTAL STATUS EXAMINATION General Appearance and Behavior: Age appropriate, good hygiene, wearing appropriate clothes, fair eye contact, cooperative polite with questioning. Cooperation: Participating/engaged, guarded Psychomotor Behavior: unremarkable and within normal limits Mood: Depressed Affect and affective range: congruent with mood Thought Process: Goal directed Thought Content: Denies Speech: Normal volume, Regular rate and rhythm, Suicidal Ideation: Denies Homicidal Ideation: Denies Hallucinations: Denies Delusions: None Impulse Control: Normal Insight and Judgment: Limited insight and judgment, Memory: Normal, Attention: Normal, Orientation: Alert, oriented, Assessment and Plan (1) Major Depressive Disorder (2) ETOH Dependence Treatment 1013 Increase Lexapro 20mg po daily Abilify 10mg po daily Trazodone 50g po qhs CIWA Sitter: Per primary Medical: Per primary Disposition: recommend acute inpatient psychiatric treatment. Will follow. Thanks Case staffed with Dr. Powell Mental Status Exam - Vital signs Last Vital Signs Temp 98.6 F 04/29/22 11:36 Pulse 76 04/29/22 11:36 Resp 16 04/28/22 23:00 BP 158/79 04/29/22 11:36 Pulse Ox 98 04/29/22 10:01
--- NOTE | 2022-04-29 13:34 | Electrocardiograph Report ---
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
--- NOTE | 2022-04-29 17:48 | Progress Note ---
Assessment and Plan # Acute Kidney Injury in CKD 3: creatinine 1.5 in February 2022, now 2.5->3.8->3.9->2.5, suspect tubular injury in setting of relative hypotension, overall illness, drug abuse - continue supportive measures including IVF prn, no labs for review today - replete lytes prn - hold colchicine which can be nephrotoxic; recommend alternative to PPI as well given AIN risk - support BP, MAP>70 if needed, BP stable - ethyl glycol not detected - agree with [facility] protocol - defer serologies, urinalysis fairly bland - reviewed renal ultrasound, WNL - strict Is/Os - no indication for renal replacement therapy # Alcohol Withdrawal: management per primary # Opioid Overdose: no specific indication for HD for removal, unless clinically worsening # Depression: psychiatry following Subjective Date of service: 04/29/22 Interval history: Resting this afternoon, no acute issues noted Objective - Exam Narrative Exam: General appearance: no distress, fatigue, frail EENT: mucous membranes moist Neck: Present: neck supple, trachea midline Respiratory: Clear to Ascultation Heart: tachycardia Gastrointestinal: Present: normoactive bowel sounds Integumentary: no rash, warm and dry Neurologic: no focal deficit, alert and oriented x3 Psychiatric: mood/affect appropriate - Vital Signs Vital signs: Vital Signs - 12hr 04/29/22 04/29/22 04/29/22 10:00 10:01 11:36 Temperature 98.6 F Pulse Rate 76 Respiratory Rate Blood Pressure 158/79 [Left] O2 Sat by Pulse 98 98 Oximetry 04/29/22 04/29/22 04/29/22 15:50 15:59 16:44 Temperature 98.4 F 98.5 F Pulse Rate 61 78 64 Respiratory 20 18 Rate Blood Pressure 143/76 143/76 [Left] O2 Sat by Pulse 97 Oximetry - Lab 04/26/22 15:54 04/28/22 06:24 Most recent lab results Calcium 7.8 mg/dL (8.4-10.2) L 04/28/22 06:24 Urine Creatinine 113.4 mg/dL (0.1-20.0) H 04/28/22 05:43 Urine Sodium 71 mmol/L 04/28/22 05:43 Medications & Allergies - Medications Allergies/Adverse Reactions: Allergies latex Allergy (Verified 04/26/22 14:04) Hives Sulfa (Sulfonamide Antibiotics) Allergy (Verified 04/26/22 14:04) Swelling Home Medications: Home Medications Medication Instructions Recorded Confirmed Last Taken Type AtorvaSTATin [Lipitor] 20 mg PO QHS 02/25/20 04/29/22 04/27/22 History Buspirone HCl [busPIRone] 15 mg PO BID 02/25/20 04/29/22 04/27/22 History Colchicine 0.6 mg PO BID 02/25/20 04/29/22 04/27/22 History Levothyroxine [Synthroid] 50 mcg PO QAM 02/25/20 04/29/22 04/26/22 History Oxycodone HCl [oxyCODONE] 10 mg PO BID PRN 02/25/20 04/29/22 04/25/22 History Promethazine [Phenergan] 25 mg PO Q12H PRN 02/25/20 04/29/22 Unknown History allopurinoL [Zyloprim] 100 mg PO DAILY 02/25/20 04/29/22 04/27/22 History glipiZIDE [Glucotrol] 5 mg PO DAILY 02/25/20 04/29/22 04/27/22 History Irbesartan 150 mg PO DAILY 02/27/20 04/29/22 04/27/22 History Active Medications: Generic Name Dose Route Start Last Admin Trade Name Freq PRN Reason Stop Dose Admin Acetaminophen 650 mg 04/27/22 13:35 Acetaminophen 325 Mg Tab PO Q4H PRN Pain MILD(1-3)/Fever >100.5/NINO Albuterol 2.5 mg 04/27/22 13:35 Albuterol 2.5 Mg/3 Ml Nebu IH Q4HRT PRN Shortness Of Breath Allopurinol 100 mg 04/28/22 10:00 04/29/22 09:17 Allopurinol 100 Mg Tab PO 100 mg DAILY ARIANE Administration Aripiprazole 10 mg 04/27/22 14:00 04/29/22 09:17 Aripiprazole 10 Mg Tab PO 10 mg QDAY ARIANE Administration Atorvastatin Calcium 20 mg 04/27/22 22:00 04/28/22 22:50 Atorvastatin 20 Mg Tab PO 20 mg QHS ARIANE Administration Buspirone HCl 15 mg 04/27/22 22:00 04/29/22 09:17 Buspirone 5 Mg Tab PO 15 mg BID ARIANE Administration Chlordiazepoxide HCl 50 mg 04/27/22 13:36 Chlordiazepoxide 25 Mg Cap PO Q1HR PRN CIWA-Ar 8-15 Escitalopram Oxalate 20 mg 04/29/22 10:00 04/29/22 09:20 Escitalopram 10 Mg Tab PO 20 mg QDAY ARIANE Administration Folic Acid 1 mg 04/28/22 10:00 04/29/22 09:17 Folic Acid 1 Mg Tab PO 1 mg QDAY ARIANE Administration Heparin Sodium (Porcine) 5,000 unit 04/27/22 22:00 04/29/22 09:18 Heparin 5,000 Unit/1 Ml Vial SUB-Q 5,000 unit Q12HR ARIANE Administration Hydromorphone HCl 0.5 mg 04/27/22 13:35 Hydromorphone 0.5 Mg/0.5 Ml Inj IV Q23H PRN Pain , Severe (7-10) Hyoscyamine 0.125 mg 04/27/22 13:38 Hyoscyamine Subl 0.125 Mg Tab SL Q6HR PRN STOMACH Pain , Severe (7-10) Levothyroxine Sodium 50 mcg 04/28/22 06:00 04/29/22 05:39 Levothyroxine 50 Mcg Tab PO 50 mcg 0600 ARIANE Administration Lorazepam 2 mg 04/27/22 13:36 Lorazepam 2 Mg/Ml Vial IV Q4H PRN CIWA-Ar 16-25 Multivitamins 1 each 04/28/22 10:00 04/29/22 09:17 Multivitamins ,Therapeutic Tab PO 1 each DAILY ARIANE Administration Ondansetron HCl 4 mg 04/27/22 13:35 Ondansetron 4 Mg/2 Ml Inj IV Q8H PRN Nausea And Vomiting Oxycodone/Acetaminophen 1 tab 04/27/22 13:35 Oxycodone /Acetaminophen 5-325mg Tab PO Q16H PRN Pain, Moderate (4-6) Pantoprazole Sodium 40 mg 04/28/22 10:00 04/29/22 09:17 Pantoprazole 40 Mg Tab PO 40 mg DAILY ARIANE Administration Promethazine HCl 25 mg 04/27/22 13:38 Promethazine 25 Mg Tab PO Q12H PRN Nausea Sodium Chloride 10 ml 04/27/22 22:00 04/29/22 09:18 Sodium Chloride 0.9% 10 Ml Flush Syringe IV 10 ml BID ARIANE Administration Sodium Chloride 10 ml 04/27/22 13:35 Sodium Chloride 0.9% 10 Ml Flush Syringe IV PRN PRN LINE FLUSH Sucralfate 1 gm 04/27/22 16:30 04/29/22 15:40 Sucralfate 1 Gm Tab PO 1 gm ACHS ARIANE Administration Thiamine HCl 100 mg 04/28/22 10:00 04/29/22 09:17 Thiamine 100 Mg Tab PO 100 mg DAILY ARIANE Administration Trazodone HCl 50 mg 04/27/22 22:00 04/28/22 22:50 Trazodone 50 Mg Tab PO 50 mg QHS ARIANE Administration
[2022-04-29 19:06] LABS: Alanine Aminotransferase 36 units/L (7-56); Albumin 3.3 g/dL (3.9-5)
[2022-04-29 19:13] LABS: Bilirubin,Direct < 0.2 mg/dL (0-0.2)
[2022-04-29] MEDS: traZODone 50 MG TAB PO SCH (22:26)
[2022-04-30] MEDS: LEVOTHYROXINE 50 MCG TAB PO SCH (06:21)
[2022-04-30 06:54] LABS: Basophils % (Auto) 0.5 % (0.0-1.8); Eosinophils # (Auto) 0.3 K/mm3 (0.0-0.4); Eosinophils % (Auto) 4.1 % (0.0-4.3); Hematocrit 27.5 % (30.3-42.9); Lymphocytes # (Auto) 2.6 K/mm3 (1.2-5.4); Lymphocytes % (Auto) 40.6 % (13.4-35.0); Mean Corpuscular HGB Conc 33 % (30-34); Mean Corpuscular Volume 86 fl (79-97); Monocytes # (Auto) 0.5 K/mm3 (0.0-0.8); Monocytes % (Auto) 7.1 % (0.0-7.3); Platelet Count 252 K/mm3 (140-440); Red Cell Distribution Width 13.8 % (13.2-15.2)
[2022-04-30 07:43] LABS: Calcium 7.7 mg/dL (8.4-10.2)
[2022-04-30] MEDS: SUCRALFATE 1 GM TAB PO SCH ×2 (07:53→12:05)
[2022-04-30 09:14] VITALS: BP 168/91
[2022-04-30] MEDS: ESCITALOPRAM 10 MG TAB PO SCH (09:15)
[2022-04-30] MEDS: THIAMINE 100 MG TAB PO SCH (09:15)
[2022-04-30] MEDS: busPIRone 5 MG TAB PO SCH (09:15)
[2022-04-30] MEDS: MULTIVITAMINS ,THERAPEUTIC TAB PO SCH (09:15)
[2022-04-30] MEDS: PANTOPRAZOLE 40 MG TAB PO SCH (09:15)
[2022-04-30] MEDS: HEPARIN 5,000 UNIT/1 ML VIAL SUB-Q SCH (09:16)
[2022-04-30] MEDS: ARIPiprazole 10 MG TAB PO SCH (09:16)
[2022-04-30] MEDS: FOLIC ACID 1 MG TAB PO SCH (09:16)
[2022-04-30] MEDS: allopurinoL 100 MG TAB PO SCH (09:16)
--- NOTE | 2022-04-30 10:25 | Progress Note ---
Assessment and Plan Assessment and plan: 56 YO Female with HTN, HLD, GERD, Gout, Hypothyroidism, PUD, Schizophrenia, DM, Mild Intermittent Asthma, Nicotine Dependence presents ED for evaluation. Patient is lethargic with diminished cognition at the time my evaluation and is unable to provide detailed history. Patient history taken EMS staff, ED staff, as well as patient daughter who was made available by telephone for interview. Patient was found to be obtunded after intentional ingestion of 15 oxycodone tablets and ingestion of alcohol. EMS was notified and upon arrival the patient was found to be in distress and subsequently treated with Narcan and transported to [facility] for further care and evaluation of the aforementioned symptoms. The patient was seen and evaluated in the emergency department. All lab and imaging studies reviewed. Consult placed to hospitalist service on 04/27/2022. The patient was admitted with diagnosis of of alcohol withdrawal syndrome, metabolic encephalopathy, ADDISON with ATN, hyponatremia, and intentional drug overdose. [address] Patient admitted to medical floor and initiated on CIWA protocol. Nephrology team consulted in ED. Mental health team consulted in ED. Intentional drug overdose with oxycodone EtOH withdrawal Metabolic encephalopathy Acute kidney injury on CKD 3 Hypokalemia EtOH dependent Nicotine dependent Major depressive disorder 04/28/2022. Nephrology reports acute kidney injury on CKD 3 with creatinine 1.5 in February 2022 and now now 2.5->3.8->3.9-->2.5, suspect tubular injury in setting of relative hypotension, overall illness, drug abuse. Continue bicarbonate drip per nephrology recommendations. Potassium repleted. Continue CIWA protocol. Follow-up serologies and renal ultrasound. strict Is/Os. Continue 1013 per psychiatry recommendations. 04/29/2022. Patient with acute kidney injury on CKD 3 with creatinine 2.5 yesterday. Follow-up BMP today. Etiology likely secondary to tubular injury from hypotension, overall illness and drug abuse. Continue supportive measures with IV fluid hydration. Follow-up renal ultrasound. Hypokalemia resolved. Continue CIWA protocol. With regards to the oxycodone overdose, we will follow- up acetaminophen level and LFTs. Psychiatry increase Lexapro to 20 mg p.o. daily. Continue Abilify and trazodone. Continue 1013 04/30/2022. I suspect patient is at baseline with creatinine of 1.9 today. Patient does have CKD 3. Patient with no need for Acetadote given the normal acetaminophen levels. LFTs within normal limits as well. Psychiatry recommends continuing 1013. Also, continue Lexapro, Abilify, trazodone and CIWA protocol. History Interval history: No new issues overnight Hospitalist Physical - Constitutional Vitals: Temp Pulse Resp BP Pulse Ox 98.5 F 72 20 168/91 99 04/30/22 09:01 04/30/22 09:01 04/30/22 09:01 04/30/22 09:01 04/30/22 09:01 General appearance: Present: mild distress - EENT Eyes: Present: PERRL, EOM intact ENT: hearing intact, clear oral mucosa, dentition normal - Neck Neck: Present: supple, normal ROM - Respiratory Respiratory effort: normal Respiratory: bilateral: CTA - Cardiovascular Rhythm: regular Heart Sounds: Present: S1 & S2. Absent: gallop, rub - Extremities Extremities: no ischemia, No edema, Full ROM - Abdominal General gastrointestinal: soft, non-tender, non-distended, normal bowel sounds - Integumentary Integumentary: Present: clear, warm, dry - Neurologic Neurologic: CNII-XII intact, moves all extremities Results - Labs CBC & Chem 7: 04/30/22 06:17 04/30/22 06:17 Labs: Laboratory Last Values WBC 6.4 K/mm3 (4.5-11.0) 04/30/22 06:17 RBC 3.20 M/mm3 (3.65-5.03) L 04/30/22 06:17 Hgb 9.0 gm/dl (10.1-14.3) L 04/30/22 06:17 Hct 27.5 % (30.3-42.9) L 04/30/22 06:17 MCV 86 fl (79-97) 04/30/22 06:17 MCH 28 pg (28-32) 04/30/22 06:17 MCHC 33 % (30-34) 04/30/22 06:17 RDW 13.8 % (13.2-15.2) 04/30/22 06:17 Plt Count 252 K/mm3 (140-440) 04/30/22 06:17 Lymph % (Auto) 40.6 % (13.4-35.0) H 04/30/22 06:17 Orange % (Auto) 7.1 % (0.0-7.3) 04/30/22 06:17 Eos % (Auto) 4.1 % (0.0-4.3) 04/30/22 06:17 Baso % (Auto) 0.5 % (0.0-1.8) 04/30/22 06:17 Lymph # (Auto) 2.6 K/mm3 (1.2-5.4) 04/30/22 06:17 Orange # (Auto) 0.5 K/mm3 (0.0-0.8) 04/30/22 06:17 Eos # (Auto) 0.3 K/mm3 (0.0-0.4) 04/30/22 06:17 Baso # (Auto) 0.0 K/mm3 (0.0-0.1) 04/30/22 06:17 Add Manual Diff Complete 04/26/22 15:54 Total Counted 100 04/26/22 15:54 Seg Neutrophils % 47.7 % (40.0-70.0) 04/30/22 06:17 Seg Neuts % (Manual) 24.0 % (40.0-70.0) L 04/26/22 15:54 Band Neutrophils % 0 % 04/26/22 15:54 Lymphocytes % (Manual) 71.0 % (13.4-35.0) H 04/26/22 15:54 Reactive Lymphs % (Man) 0 % 04/26/22 15:54 Monocytes % (Manual) 0 % (0.0-7.3) 04/26/22 15:54 Eosinophils % (Manual) 3.0 % (0.0-4.3) 04/26/22 15:54 Basophils % (Manual) 2.0 % (0.0-1.8) H 04/26/22 15:54 Metamyelocytes % 0 % 04/26/22 15:54 Myelocytes % 0 % 04/26/22 15:54 Promyelocytes % 0 % 04/26/22 15:54 Blast Cells % 0 % 04/26/22 15:54 Nucleated RBC % Not Reportable 04/26/22 15:54 Seg Neutrophils # 3.1 K/mm3 (1.8-7.7) 04/30/22 06:17 Seg Neutrophils # Man 2.5 K/mm3 (1.8-7.7) 04/26/22 15:54 Band Neutrophils # 0.0 K/mm3 04/26/22 15:54 Lymphocytes # (Manual) 7.4 K/mm3 (1.2-5.4) H 04/26/22 15:54 Abs React Lymphs (Man) 0.0 K/mm3 04/26/22 15:54 Monocytes # (Manual) 0.0 K/mm3 (0.0-0.8) 04/26/22 15:54 Eosinophils # (Manual) 0.3 K/mm3 (0.0-0.4) 04/26/22 15:54 Basophils # (Manual) 0.2 K/mm3 (0.0-0.1) H 04/26/22 15:54 Metamyelocytes # 0.0 K/mm3 04/26/22 15:54 Myelocytes # 0.0 K/mm3 04/26/22 15:54 Promyelocytes # 0.0 K/mm3 04/26/22 15:54 Blast Cells # 0.0 K/mm3 04/26/22 15:54 WBC Morphology Not Reportable 04/26/22 15:54 Hypersegmented Neuts Not Reportable 04/26/22 15:54 Hyposegmented Neuts Not Reportable 04/26/22 15:54 Hypogranular Neuts Not Reportable 04/26/22 15:54 Smudge Cells Not Reportable 04/26/22 15:54 Toxic Granulation Not Reportable 04/26/22 15:54 Toxic Vacuolation Not Reportable 04/26/22 15:54 Dohle Bodies Not Reportable 04/26/22 15:54 Pelger-Huet Anomaly Not Reportable 04/26/22 15:54 Leslye Rods Not Reportable 04/26/22 15:54 Platelet Estimate Consistent w auto 04/26/22 15:54 Clumped Platelets Not Reportable 04/26/22 15:54 Plt Clumps, EDTA Not Reportable 04/26/22 15:54 Large Platelets Not Reportable 04/26/22 15:54 Giant Platelets Not Reportable 04/26/22 15:54 Platelet Satelliting Not Reportable 04/26/22 15:54 Plt Morphology Comment Not Reportable 04/26/22 15:54 RBC Morphology Normal 04/26/22 15:54 Dimorphic RBCs Not Reportable 04/26/22 15:54 Polychromasia Not Reportable 04/26/22 15:54 Hypochromasia Not Reportable 04/26/22 15:54 Poikilocytosis Not Reportable 04/26/22 15:54 Anisocytosis Not Reportable 04/26/22 15:54 Microcytosis Not Reportable 04/26/22 15:54 Macrocytosis Not Reportable 04/26/22 15:54 Spherocytes Not Reportable 04/26/22 15:54 Pappenheimer Bodies Not Reportable 04/26/22 15:54 Sickle Cells Not Reportable 04/26/22 15:54 Target Cells Not Reportable 04/26/22 15:54 Tear Drop Cells Not Reportable 04/26/22 15:54 Ovalocytes Not Reportable 04/26/22 15:54 Helmet Cells Not Reportable 04/26/22 15:54 [place] Bodies Not Reportable 04/26/22 15:54 [place] Rings Not Reportable 04/26/22 15:54 Nataly Cells Not Reportable 04/26/22 15:54 Bite Cells Not Reportable 04/26/22 15:54 Crenated Cell Not Reportable 04/26/22 15:54 Elliptocytes Not Reportable 04/26/22 15:54 Acanthocytes (Spur) Not Reportable 04/26/22 15:54 Rouleaux Not Reportable 04/26/22 15:54 Hemoglobin C Crystals Not Reportable 04/26/22 15:54 Schistocytes Not Reportable 04/26/22 15:54 Malaria parasites Not Reportable 04/26/22 15:54 Say Bodies Not Reportable 04/26/22 15:54 Hem Pathologist Commnt No 04/26/22 15:54 Sodium 142 mmol/L (137-145) 04/30/22 06:17 Potassium 3.0 mmol/L (3.6-5.0) L 04/30/22 06:17 Chloride 108.4 mmol/L (98-107) H 04/30/22 06:17 Carbon Dioxide 21 mmol/L (22-30) L 04/30/22 06:17 Anion Gap 16 mmol/L 04/30/22 06:17 BUN 15 mg/dL (7-17) 04/30/22 06:17 Creatinine 1.6 mg/dL (0.6-1.2) H 04/30/22 06:17 Estimated GFR 40 ml/min 04/30/22 06:17 BUN/Creatinine Ratio 9 % 04/30/22 06:17 Glucose 104 mg/dL (65-100) H 04/30/22 06:17 POC Glucose 106 mg/dL (70-105) H 04/30/22 07:51 Calcium 7.7 mg/dL (8.4-10.2) L 04/30/22 06:17 Total Bilirubin 0.30 mg/dL (0.1-1.2) 04/29/22 12:14 Direct Bilirubin < 0.2 mg/dL (0-0.2) 04/29/22 12:14 Indirect Bilirubin 0.1 mg/dL 04/29/22 12:14 AST 33 units/L (5-40) 04/29/22 12:14 ALT 36 units/L (7-56) 04/29/22 12:14 Alkaline Phosphatase 137 units/L (35-129) H 04/29/22 12:14 Total Protein 5.5 g/dL (6.3-8.2) L 04/29/22 12:14 Albumin 3.3 g/dL (3.9-5) L 04/29/22 12:14 Albumin/Globulin Ratio 1.5 % 04/29/22 12:14 Urine Color Yellow (Yellow) 04/26/22 17:57 Urine Turbidity Clear (Clear) 04/26/22 17:57 Urine pH 5.0 (5.0-7.0) 04/26/22 17:57 Ur Specific [place] 1.010 (1.003-1.030) 04/26/22 17:57 Urine Protein 100 mg/dl mg/dL (Negative) 04/26/22 17:57 Urine Glucose (UA) Neg mg/dL (Negative) 04/26/22 17:57 Urine Ketones Neg mg/dL (Negative) 04/26/22 17:57 Urine Blood Neg (Negative) 04/26/22 17:57 Urine Nitrite Neg (Negative) 04/26/22 17:57 Urine Bilirubin Neg (Negative) 04/26/22 17:57 Urine Urobilinogen 2.0 mg/dL (<2.0) 04/26/22 17:57 Ur Leukocyte Esterase Neg (Negative) 04/26/22 17:57 Urine WBC (Auto) 2.0 /HPF (0.0-6.0) 04/26/22 17:57 Urine RBC (Auto) < 1.0 /HPF (0.0-6.0) 04/26/22 17:57 U Epithel Cells (Auto) 3.0 /HPF (0-13.0) 04/26/22 17:57 Urine Bacteria (Auto) 1+ /HPF (Negative) 04/26/22 17:57 Urine Creatinine 113.4 mg/dL (0.1-20.0) H 04/28/22 05:43 Urine Sodium 71 mmol/L 04/28/22 05:43 Nasal Screen MRSA (PCR) Negative (Negative) 04/28/22 05:21 Salicylates < 0.3 mg/dL (2.8-20.0) L 04/26/22 15:54 Urine Opiates Screen Positive 04/26/22 17:57 Urine Methadone Screen Negative 04/26/22 17:57 Acetaminophen 5.0 ug/mL (10.0-30.0) L 04/29/22 12:14 Ur Barbiturates Screen Negative 04/26/22 17:57 Ur Phencyclidine Scrn Negative 04/26/22 17:57 Ur Amphetamines Screen Negative 04/26/22 17:57 U Benzodiazepines Scrn Negative 04/26/22 17:57 Urine Cocaine Screen Negative 04/26/22 17:57 U Marijuana (THC) Screen Negative 04/26/22 17:57 Drugs of Abuse Note Disclamer 04/26/22 17:57 Ethylene Glycol See scanned result 04/27/22 14:19 Plasma/Serum Alcohol 0.27 % (0-0.07) H 04/26/22 15:54 Hepatitis A IgM Ab Non-reactive (NonReactive) 04/27/22 Unknown Hep Bs Antigen Non-reactive (Negative) 04/27/22 Unknown Hep B Core IgM Ab Non-reactive (NonReactive) 04/27/22 Unknown Hepatitis C Antibody Non-reactive (NonReactive) 04/27/22 Unknown Johnson/IV: Voiding Method Toilet Active Medications - Current Medications Current Medications: Generic Name Dose Route Start Last Admin Trade Name Freq PRN Reason Stop Dose Admin Acetaminophen 650 mg 04/27/22 13:35 Acetaminophen 325 Mg Tab PO Q4H PRN Pain MILD(1-3)/Fever >100.5/NINO Albuterol 2.5 mg 04/27/22 13:35 Albuterol 2.5 Mg/3 Ml Nebu IH Q4HRT PRN Shortness Of Breath Allopurinol 100 mg 04/28/22 10:00 04/30/22 09:16 Allopurinol 100 Mg Tab PO 100 mg DAILY ARIANE Administration Aripiprazole 10 mg 04/27/22 14:00 04/30/22 09:16 Aripiprazole 10 Mg Tab PO 10 mg QDAY ARIANE Administration Atorvastatin Calcium 20 mg 04/27/22 22:00 04/29/22 22:26 Atorvastatin 20 Mg Tab PO 20 mg QHS ARIANE Administration Buspirone HCl 15 mg 04/27/22 22:00 04/30/22 09:15 Buspirone 5 Mg Tab PO 15 mg BID ARIANE Administration Chlordiazepoxide HCl 50 mg 04/27/22 13:36 Chlordiazepoxide 25 Mg Cap PO Q1HR PRN CIWA-Ar 8-15 Escitalopram Oxalate 20 mg 04/29/22 10:00 04/30/22 09:15 Escitalopram 10 Mg Tab PO 20 mg QDAY ARIANE Administration Folic Acid 1 mg 04/28/22 10:00 04/30/22 09:16 Folic Acid 1 Mg Tab PO 1 mg QDAY ARIANE Administration Heparin Sodium (Porcine) 5,000 unit 04/27/22 22:00 04/30/22 09:16 Heparin 5,000 Unit/1 Ml Vial SUB-Q 5,000 unit Q12HR ARIANE Administration Hydromorphone HCl 0.5 mg 04/27/22 13:35 Hydromorphone 0.5 Mg/0.5 Ml Inj IV Q23H PRN Pain , Severe (7-10) Hyoscyamine 0.125 mg 04/27/22 13:38 Hyoscyamine Subl 0.125 Mg Tab SL Q6HR PRN STOMACH Pain , Severe (7-10) Levothyroxine Sodium 50 mcg 04/28/22 06:00 04/30/22 06:21 Levothyroxine 50 Mcg Tab PO 50 mcg 0600 ARIANE Administration Lorazepam 2 mg 04/27/22 13:36 Lorazepam 2 Mg/Ml Vial IV Q4H PRN CIWA-Vadim 16-25 Multivitamins 1 each 04/28/22 10:00 04/30/22 09:15 Multivitamins ,Therapeutic Tab PO 1 each DAILY ARIANE Administration Ondansetron HCl 4 mg 04/27/22 13:35 Ondansetron 4 Mg/2 Ml Inj IV Q8H PRN Nausea And Vomiting Oxycodone/Acetaminophen 1 tab 04/27/22 13:35 Oxycodone /Acetaminophen 5-325mg Tab PO Q16H PRN Pain, Moderate (4-6) Pantoprazole Sodium 40 mg 04/28/22 10:00 04/30/22 09:15 Pantoprazole 40 Mg Tab PO 40 mg DAILY ARIANE Administration Promethazine HCl 25 mg 04/27/22 13:38 Promethazine 25 Mg Tab PO Q12H PRN Nausea Sodium Chloride 10 ml 04/27/22 22:00 04/30/22 09:16 Sodium Chloride 0.9% 10 Ml Flush Syringe IV 10 ml BID ARIANE Administration Sodium Chloride 10 ml 04/27/22 13:35 Sodium Chloride 0.9% 10 Ml Flush Syringe IV PRN PRN LINE FLUSH Sucralfate 1 gm 04/27/22 16:30 04/30/22 07:53 Sucralfate 1 Gm Tab PO 1 gm ACHS ARIANE Administration Thiamine HCl 100 mg 04/28/22 10:00 04/30/22 09:15 Thiamine 100 Mg Tab PO 100 mg DAILY ARIANE Administration Trazodone HCl 50 mg 04/27/22 22:00 04/29/22 22:26 Trazodone 50 Mg Tab PO 50 mg QHS ARIANE Administration Nutrition/Malnutrition Assess - Dietary Evaluation Nutrition/Malnutrition Findings: Nutrition Notes Start: 04/28/22 18:12 Freq: Status: Active Protocol: Document 04/28/22 18:12 GONZALO (Rec: 04/28/22 18:28 GONZALO [email or web address]) Nutrition Notes 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 Current Diet Renal Diet (since B 04/27). Labs/Tests 04/28: K 3.5, Cl 109.3, CO2 19 , BUN 36, Crea 2.5, Glu 146, Ca 7.8. Pertinent Medications 04/28: Folkic acid, Levothyroxine, Multivitamins, Thiamine, others nutritionally unremarkable. Height 5 ft 2 in Weight 65 kg [place] Body Weight (kg) 50.00 BMI 26.2 Intake Prior to Admission Poor Weight change and time frame Pt states having, unintentionally, loss between 2 and 13 lb recently. Weight Status Overweight Subjective/Other Information RD consult for risk of malnutrition assessment. Pt's PO intake of meals has been Good (75%), according to ADL notes. Pt is on Nasal Cannula, O2 saturation @ 98%, according to Physical Assessment History notes. Pt has missing teeth, according to Physical Assessment History notes. Pt shows no signs of concern for risk of malnutrition at the time, according to Physical Assessment History notes. Percent of energy/protein needs met: Prescribed Renal Diet provides for energy/protein needs (2, 072 Kcal/77 g) during LOS. Burn Absent Trauma Absent GI Symptoms None Food Allergy No Skin Integrity/Comment Assessment WNL. 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 No Is Patient Ambulatory and/or Out of Bed Yes REE-([facility]-ambulatory/OOB) [ 1538.225 [id number]] Kcal/Kg value to use for calculation 19 Approximate Energy Requirements Using 1235 kcal/Kg Calculation Used for Recommendations Kcal/kg Additional Notes Protein: 0.8-1.2 g/Kg ABW; 52- 78 g/day. Fluids: 1 ml/Kcal, or as per MD. Nutrition Intervention Change Diet Order: Continue Renal Diet. Follow-Up By: 05/05/22 Additional Comments Continue monitoring food tolerance, %PO intake of meals , and BM.
--- NOTE | 2022-04-30 11:33 | Progress Note ---
Subjective - Reason for Consult Consult date: 04/30/22 Reason for consult: mental health evaluation - Chief Complaint Chief complaint: The patient was seen today. She reports feeling better. She is responding well to psychotropic meds with no reported side effects. She denies any current suicidal/homicidal ideation and denies hallucinations. REVIEW OF SYSTEMS Constitutional: Negative for weight loss ENT: Negative for stridor Respiratory: Negative for cough or hemoptysis All other systems reviewed and are negative MENTAL STATUS EXAMINATION General Appearance and Behavior: Age appropriate, good hygiene, wearing appropriate clothes, fair eye contact, cooperative polite with questioning. Cooperation: Participating/engaged, guarded Psychomotor Behavior: unremarkable and within normal limits Mood: "ok" Affect and affective range: congruent with mood Thought Process: Goal directed Thought Content: Denies Speech: Normal volume, Regular rate and rhythm, Suicidal Ideation: Denies Homicidal Ideation: Denies Hallucinations: Denies Delusions: None Impulse Control: Normal Insight and Judgment: Limited insight and judgment, Memory: Normal, Attention: Normal, Orientation: Alert, oriented, Assessment and Plan (1) Major Depressive Disorder (2) ETOH Dependence Treatment DC 1013 Continue Lexapro 20mg po daily Continue Abilify 5mg po daily Continue Trazodone 50g po qhs Sitter: Per primary Medical: Per primary Disposition:Do not recommend acute inpatient psychiatric treatment. Paper Coater will provide patient with psychiatric outpatient resources and safety plan. Will sign off. Thanks Case staffed with Dr. Powell Mental Status Exam - Vital signs Last Vital Signs Temp 98.5 F 04/30/22 09:01 Pulse 72 04/30/22 09:01 Resp 20 04/30/22 09:01 BP 168/91 04/30/22 09:01 Pulse Ox 99 04/30/22 09:01
--- NOTE | 2022-04-30 12:19 | Discharge Summary ---
Providers - Providers Date of Admission: 04/27/22 13:35 Date of discharge: 04/30/22 Attending physician: HERMINIO OCONNOR 04/27/22 13:31 Consult to Physician [CONS] Urgent Comment: Consulting Provider: SONY PIERCE Physician Instructions: Reason For Exam: ADDISON/hyperkalemia Primary care physician: RAMIN RODRIGUEZ Hospitalization Reason for admission: Oxycodone overdose Condition: Stable Hospital course: 56 YO Female with HTN, HLD, GERD, Gout, Hypothyroidism, PUD, Schizophrenia, DM, Mild Intermittent Asthma, Nicotine Dependence presents ED for evaluation. On admission patient was lethargic with diminished cognition at the time my evaluation and is unable to provide detailed history. Patient history taken EMS staff, ED staff, as well as patient daughter who was made available by telephone for interview. Patient was found to be obtunded after intentional ingestion of 15 oxycodone tablets and ingestion of alcohol. EMS was notified and upon arrival the patient was found to be in distress and subsequently treated with Narcan and transported to [facility] for further care and evaluation of the aforementioned symptoms. The patient was seen and evaluated in the emergency department. All lab and imaging studies reviewed. Consult placed to hospitalist service on 04/27/2022. The patient was admitted with diagnosis of of alcohol withdrawal syndrome, metabolic encephalopathy, ADDISON with ATN, hyponatremia, and intentional drug overdose. 1013 was initiated. Patient admitted to medical floor and initiated on CIWA protocol. Nephrology team consulted in ED. Mental health team consulted in ED. the patient was admitted with diagnosis below Intentional drug overdose with oxycodone EtOH withdrawal Metabolic encephalopathy Acute kidney injury on CKD 3 Hypokalemia EtOH dependent Nicotine dependent Major depressive disorder 04/28/2022. Nephrology reports acute kidney injury on CKD 3 with creatinine 1.5 in February 2022 and now now 2.5->3.8->3.9-->2.5, suspect tubular injury in setting of relative hypotension, overall illness, drug abuse. Continue bicarbonate drip per nephrology recommendations. Potassium repleted. Continue CIWA protocol. Follow-up serologies and renal ultrasound. strict Is/Os. Continue 1013 per psychiatry recommendations. 04/29/2022. Patient with acute kidney injury on CKD 3 with creatinine 2.5 yesterday. Follow-up BMP today. Etiology likely secondary to tubular injury from hypotension, overall illness and drug abuse. Continue supportive measures with IV fluid hydration. Follow-up renal ultrasound. Hypokalemia resolved. Continue CIWA protocol. With regards to the oxycodone overdose, we will follow- up acetaminophen level and LFTs. Psychiatry increase Lexapro to 20 mg p.o. daily. Continue Abilify and trazodone. Continue 1013 04/30/2022. I suspect patient is at baseline with creatinine of 1.9 today. Patient does have CKD 3. Patient with no need for Acetadote given the normal acetaminophen levels. LFTs within normal limits as well. Psychiatry rescinded 1013. Also, continue Lexapro, Abilify, trazodone and CIWA protocol. Dedicated discharge time 35 minutes Disposition: HOME / SELF CARE / HOMELESS Final Discharge Diagnosis (Prints w/discharge instructions): Intentional drug overdose with oxycodone. EtOH withdrawal. Metabolic encephalopathy. Acute kidney injury on CKD 3. Hypokalemia. EtOH dependent. Nicotine dependent. Major depressive disorder Core Measure Documentation - Palliative Care Palliative Care/ Comfort Measures: Not Applicable - Core Measures Any of the following diagnoses?: none Exam - Constitutional Vitals: Temp Pulse Resp BP Pulse Ox 98.5 F 72 20 168/91 99 04/30/22 09:01 04/30/22 09:01 04/30/22 09:01 04/30/22 09:01 04/30/22 09:01 General appearance: Present: no acute distress, well-nourished - EENT Eyes: Present: PERRL ENT: hearing intact, clear oral mucosa - Neck Neck: Present: supple, normal ROM - Respiratory Respiratory effort: normal Respiratory: bilateral: CTA - Cardiovascular Heart Sounds: Present: S1 & S2. Absent: rub, click - Extremities Extremities: pulses symmetrical, No edema Peripheral Pulses: within normal limits - Abdominal General gastrointestinal: Present: soft, non-tender, non-distended, normal bowel sounds Female genitourinary: Present: normal - Integumentary Integumentary: Present: clear, warm, dry - Musculoskeletal Musculoskeletal: gait normal, strength equal bilaterally - Psychiatric Psychiatric: appropriate mood/affect, intact judgment & insight - Neurologic Neurologic: CNII-XII intact, moves all extremities Plan Activity: advance as tolerated Weight Bearing Status: Weight Bear as Tolerated Diet: regular Additional Instructions: Manufacturing Controls Engineer will provide patient with psychiatric outpatient resources and safety plan. Follow up with: RAMIN RODRIGUEZ MD [Primary Care Provider] - 7 Days Prescriptions: ARIPiprazole [Abilify TAB] 5 mg PO DAILY 30 Days #30 tab Citalopram [Celexa] 20 mg PO QDAY 30 Days #30 tablet traZODone [Desyrel] 50 mg PO QHS 30 Days #30 tab
--- NOTE | 2022-04-30 18:37 | Progress Note ---
Assessment and Plan # Acute Kidney Injury in CKD 3: creatinine 1.5 in February 2022, now 2.5->3.8->3.9->2.5->1.6, suspect tubular injury in setting of relative hyp otension, overall illness, drug abuse - continue supportive measures including IVF prn - replete lytes prn, note K 3.0, likely nutritional - hold colchicine which can be nephrotoxic; recommend alternative to PPI as well given AIN risk - support BP, MAP>70 if needed, BP stable - ethyl glycol not detected - agree with [facility] protocol - defer serologies, urinalysis fairly bland - reviewed renal ultrasound, WNL - strict Is/Os - no indication for renal replacement therapy # Alcohol Withdrawal: management per primary # Opioid Overdose: no specific indication for HD for removal, unless clinically worsening # Depression: psychiatry following Subjective Date of service: 04/30/22 Interval history: Resting this afternoon, no acute issues noted Objective - Exam Narrative Exam: General appearance: no distress, fatigue, frail EENT: mucous membranes moist Neck: Present: neck supple, trachea midline Respiratory: Clear to Ascultation Heart: tachycardia Gastrointestinal: Present: normoactive bowel sounds Integumentary: no rash, warm and dry Neurologic: no focal deficit, alert and oriented x3 Psychiatric: mood/affect appropriate - Vital Signs Vital signs: Vital Signs - 12hr 04/30/22 04/30/22 04/30/22 08:10 08:18 09:01 Temperature 98.5 F Pulse Rate 72 Respiratory 20 Rate Blood Pressure 168/91 O2 Sat by Pulse 98 98 99 Oximetry - Lab 04/30/22 06:17 04/30/22 06:17 Most recent lab results Calcium 7.7 mg/dL (8.4-10.2) L 04/30/22 06:17 Urine Creatinine 113.4 mg/dL (0.1-20.0) H 04/28/22 05:43 Urine Sodium 71 mmol/L 04/28/22 05:43 Medications & Allergies - Medications Allergies/Adverse Reactions: Allergies latex Allergy (Verified 04/26/22 14:04) Hives Sulfa (Sulfonamide Antibiotics) Allergy (Verified 04/26/22 14:04) Swelling Home Medications: Home Medications Medication Instructions Recorded Confirmed Last Taken Type AtorvaSTATin [Lipitor] 20 mg PO QHS 02/25/20 04/29/2222 History Buspirone HCl [busPIRone] 15 mg PO BID 02/25/20 04/29/22 04/27/22 History Colchicine 0.6 mg PO BID 02/25/20 04/29/22 04/27/22 History Levothyroxine [Synthroid] 50 mcg PO QAM 02/25/20 04/29/22 04/26/22 History Promethazine [Phenergan] 25 mg PO Q12H PRN 02/25/20 04/29/22 Unknown History allopurinoL [Zyloprim] 100 mg PO DAILY 02/25/20 04/29/22 04/27/22 History glipiZIDE [Glucotrol] 5 mg PO DAILY 02/25/20 04/29/22 04/27/22 History Irbesartan 150 mg PO DAILY 02/27/20 04/29/22 04/27/22 History ARIPiprazole [Abilify TAB] 5 mg PO DAILY 30 Days #30 tab 04/30/22 Unknown Rx ARIPiprazole [Abilify TAB] 10 mg PO QDAY tablet 04/30/22 Unknown Rx Citalopram [Celexa] 20 mg PO QDAY 30 Days #30 tablet 04/30/22 Unknown Rx Escitalopram [Lexapro] 20 mg PO QDAY tablet 04/30/22 Unknown Rx Folic Acid [Folvite] 1 mg PO QDAY tablet 04/30/22 Unknown Rx Pantoprazole [Protonix TAB] 40 mg PO DAILY tablet 04/30/22 Unknown Rx chlordiazePOXIDE [Librium] 50 mg PO Q1HR PRN capsule 04/30/22 Unknown Rx traZODone [Desyrel] 50 mg PO QHS tablet 04/30/22 Unknown Rx traZODone [Desyrel] 50 mg PO QHS 30 Days #30 tab 04/30/22 Unknown Rx
== END 2022-04-30 14:26 | disposition home or self-care (01) | DRG 917 ==
LOC: ED 13:59 → 3A 04-27 13:35
PROVIDERS: ADMIT Internal Medicine; ATTEND Hospitalist
DX: T40.2X2A Poisoning by other opioids, intentional self-harm, initial encounter (principal); N17.0 Acute kidney failure with tubular necrosis; G93.41 Metabolic encephalopathy; F19.20 Other psychoactive substance dependence, uncomplicated; F10.231 Alcohol dependence with withdrawal delirium; F17.213 Nicotine dependence, cigarettes, with withdrawal; E87.1 Hypo-osmolality and hyponatremia; F32.9 Major depressive disorder, single episode, unspecified; K21.9 Gastro-esophageal reflux disease without esophagitis; E78.5 Hyperlipidemia, unspecified; M10.9 Gout, unspecified; E03.9 Hypothyroidism, unspecified; N18.30 Chronic kidney disease, stage 3 unspecified; E87.6 Hypokalemia; I12.9 Hypertensive chronic kidney disease with stage 1 through stage 4 chronic kidney disease, or unspecified chronic kidney disease; E11.22 Type 2 diabetes mellitus with diabetic chronic kidney disease; F10.20 Alcohol dependence, uncomplicated; Z90.710 Acquired absence of both cervix and uterus; Z90.49 Acquired absence of other specified parts of digestive tract; Z83.3 Family history of diabetes mellitus; Z82.49 Family history of ischemic heart disease and other diseases of the circulatory system; Y92.89 Other specified places as the place of occurrence of the external cause
CPT/HCPCS: 36415; 76770; 80048; 80053; 80074; 80076; 80307; 80320; 81001; 82570; 82693; 82962; 84300; 85007; 85025; 87641; 93005; 94640; 94760; 99406; G0378; J3490; G0480; J0610; J1644; J2310; J2405; J3411; J7030